=== PATIENT | female | born 1990 | race Caucasian/White ===

== ENCOUNTER 2016-08-15 14:52 | Observation (INO) | payer OTHER ==
[2016-08-15 16:53] LABS: Bacteria RARE /HPF (NEGATIVE); COMPLETE URINE MICROSCOPIC? YES; Collection Type CLEAN CATCH; Epithelial Cells MANY /HPF (FEW); Mucus MODERATE /HPF (NEGATIVE)
[2016-08-15 17:26] VITALS: BP 113/59; PULSE 69
== END 2016-08-15 17:22 | disposition home or self-care (01) ==
LOC: UNDOADMOB 14:52 → OB 14:52 → UNDODISOB 17:22
PROVIDERS: ADMIT Family Medicine; ATTEND Family Medicine
DX: Z34.02 Encounter for supervision of normal first pregnancy, second trimester (principal)
CPT/HCPCS: 80307; 81000; G0378

== ENCOUNTER 2016-12-28 17:19 | Emergency (ER) | payer OTHER ==
[2016-12-28 17:37] VITALS: BP 138/88
--- NOTE | 2016-12-28 17:48 | ERPHSYRPT ---
- History of Present Illness Time Seen by Provider: 12/28/16 17:24 Source: patient, family Exam Limitations: no limitations Patient Subjective Stated Complaint: pt here for serous drainage from c/s incision,pt states she noticed after standing up from supine position, no fever Triage Nursing Assessment: pt alert, walked in,resp easy, skin w/d,lower abd with incision that is well approximated and having serous drainage from abd.no fowel smell,no reddness noted ,pt states incision was glued Physician History: patient 6 days post C Section; today developed a little clear drainage from right side of incision; no pain; no trauma; no fever Timing/Duration: today Severity: mild Modifying Factors: Improves With: nothing Associated Symptoms: denies symptoms Allergies/Adverse Reactions: chlordiazepoxide HCl [From Librium] Allergy (Verified 12/28/16 17:38) levetiracetam [From Keppra] Allergy (Verified 12/28/16 17:38) ondansetron [From Zofran (as hydrochloride)] Allergy (Verified 12/28/16 17:38) Home Medications: Vits W-Ca,Fe,FA(<1Mg) [] 1 each PO DAILY 08/15/16 [History] Hydrocodone Bit/Acetaminophen [[place] 5-325 Tablet] 1 ea QID 12/28/16 [History] Ibuprofen 200 mg [Motrin 200 mg] 400 mg DAILY 12/28/16 [History] Hx Tetanus, Diphtheria Vaccination/Date Given: Yes Hx Influenza Vaccination/Date Given: No Hx Pneumococcal Vaccination/Date Given: No Immunizations Up to Date: Yes - Review of Systems Constitutional: No Symptoms Eyes: No Symptoms Ears, Nose, & Throat: No Symptoms Respiratory: No Cough, No Dyspnea, No Wheezing Cardiac: No Chest Pain, No Palpitations, No Syncope Abdominal/Gastrointestinal: No Abdominal Pain, No Nausea, No Vomiting, No Diarrhea Genitourinary Symptoms: No Symptoms Musculoskeletal: No Symptoms Skin: Other (incision opened), No Cellulitis, No Rash Neurological: No Symptoms Psychological: No Symptoms - Past Medical History Pertinent Past Medical History: Yes GI Medical History: Other Psycho-Social History: Depression Other Medical History: hep c - Past Surgical History Past Surgical History: Yes Other Surgical History: left hand surguery - Social History Smoking Status: Never smoker How long have you smoked: 10 years Exposure to second hand smoke: No Alcohol Use: Socially Drug Use: none Patient Lives Alone: No Significant Family History: no pertinent family hx - Female History Hx Last Menstrual Period: 03/28/16 Hx Now: No (6 days post ) - Nursing Vital Signs Nursing Vital Signs: Initial Vital Signs Temperature 98.2 F 12/28/16 17:26 Pulse Rate 97 H 12/28/16 17:26 Respiratory Rate 16 12/28/16 17:26 Blood Pressure 138/88 12/28/16 17:26 O2 Sat by Pulse Oximetry 98 12/28/16 17:26 Pain Scale Pain Intensity 5 - Physical Exam General Appearance: mild distress, alert Eye Exam: PERRL/EOMI, eyes nml inspection Ears, Nose, Throat Exam: normal ENT inspection, pharynx normal, moist mucous membranes Neck Exam: normal inspection, non-tender, supple Respiratory Exam: normal breath sounds, lungs clear, airway intact, No chest tenderness Cardiovascular Exam: regular rate/rhythm, normal heart sounds, capillary refill <2 sec, No murmur Gastrointestinal/Abdomen Exam: soft, normal bowel sounds, tenderness (slight over incision), organomegaly (slight enlargement o futerus post op / post ), other (healing incision without infection; small area 1-2 cm mid right side iopen and draining serous material; no bleeding or odor;), No rebound Pelvic Exam: deferred Rectal Exam: deferred Extremity Exam: normal inspection, normal range of motion, No jaleesa's sign, No pedal edema Neurologic Exam: alert, oriented x 3, cooperative, 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, normal mood/affect, nml cerebellar function Skin Exam: normal color, warm, dry, other (small open area of incision), No rash SpO2: 98 Oxygen Delivery: Room Air Procedures - Laceration/Wound Repair Right Lower Lateral Abdomen Wound Location: Right, abdomen Wound Length (cm): 2 (C section incison open 1-2 cm right side; approximates well; ) Wound's Depth, Shape: superficial, linear Wound Explored: clean Irrigated: No Hibiclens Prep: Yes Wound Repaired With: Steri-strips - Course Nursing assessment & vital signs reviewed: Yes Ordered Tests: Active Orders 24 hr Category Date Time Status Prepare for Sutures STAT Care 12/28/16 17:40 Ordered Re-Check Vital Signs STAT Care 12/28/16 17:40 Ordered Sutures STAT Care 12/28/16 17:41 Ordered Wound Care STAT Care 12/28/16 17:40 Ordered - Progress Progress Note: 12/28/16 17:47 discussed treatment optons and mekhi clean and steri strip and followup with lmd instrcutions given Counseled pt/family regarding: diagnosis, need for follow-up - Departure Time of Disposition: 17:48 Departure Disposition: Home Clinical Impression: Open draining abdominal incision Condition: Stable Critical Care Time: No Referrals: MIKI HOUGH, DONITA [Primary Care Provider] - Instructions: Laceration Repair Steri-Strips Additional Instructions: clean and dry Follow-up with family doctor as directed. Call for appointment. Return if any problems. If you smoke please stop. Call or follow up with your family doctor for assistance if you need it to stop. Please wear your seatbelt when driving. Have a nice day. Thank you for allowing us to participate in your care today. :o) Dr Jerry Child
[2016-12-28 18:03] VITALS: PULSE 70; O2SAT 97
== END 2016-12-28 17:57 | disposition home or self-care (01) ==
LOC: ED 17:19
DX: O90.0 Disruption of cesarean delivery wound (principal)
CPT/HCPCS: 99282

== ENCOUNTER 2018-05-02 19:44 | Observation (INO) | payer BC, OTHER ==
[2018-05-02] MEDS ORDERED: Sodium Chloride 0.9% 1000 ML 1,000 ML IV STA (19:53)
[2018-05-02] MEDS ORDERED: LIQUI-CHAR 50 GM PO ONE (20:08)
[2018-05-02 20:09] LABS: BASOPHIL % 0.3 % (0.0-0.4); Basophil (Absolute #) 0.04 (0-0.4); Eosinophil (Absolute #) 0.26 (0-0.5); Granulocyte Absolute (ANC) 8.14 (1.4-6.9); Granulocytes % 61.6 % (36.0-66.0); Hematocrit 41.8 % (35-47); Hemoglobin 13.6 gm/dl (12.0-16.0); Lymphocyte (Absolute #) 3.73 (1.0-4.6); Lymphocytes % 28.2 % (24.0-44.0); Mean Cell Volume 93.3 fl (78-100); Mean Corpuscular Hemoglobin 30.4 pg (26-32); Mean Corpuscular Hgb Concent. 32.5 g/dl (32-36); Mean Platelet Volume 10.1 fl (6-9.5); Monocyte (Absolute #) 1.05 (0.0-1.3); Monocytes % 7.9 % (0.0-12.0); Platelet Count 257 K/mm3 (150-450); Red Blood Count 4.48 M/mm3 (4.1-5.4); Red Cell Distribution Width 14.1 % (11.5-14.0); White Blood Count 13.2 K/mm3 (4.0-10.5)
[2018-05-02] MEDS ORDERED: LIQUI-CHAR 50 GM ONE (20:19)
[2018-05-02] MEDS ORDERED: Sodium Chloride 0.9% 1000 ML 1,000 ML ONE ×2 (20:19→22:49)
[2018-05-02 20:20] LABS: ALKALINE PHOSPHATASE 102 U/L (38-126); ANION GAP 22.4 MEQ/L (5-15); BLOOD UREA NITROGEN 9 mg/dL (7-17); CHLORIDE 106 mmol/L (98-107); Calcium 9.7 mg/dL (8.4-10.2); Carbon Dioxide 19 mmol/L (22-30); Creatinine 1 1.03 mg/dL (0.52-1.04); ETHYL ALCOHOL 187 mg/dL (0-10); Glucose 76 mg/dL (74-106); Potassium 3.5 mmol/L (3.5-5.1); SGOT/AST 18 U/L (14-36); SGPT/ALT 20 U/L (0-35); SODIUM 144 mmol/L (137-145)
[2018-05-02 20:24] LABS: A-aADO2 16; ABG HEMOGLOBIN 13.8; ABG POTASSIUM 3.7 (3.5-5.1); ABG SITE RIGHT RADIAL; ALLEN TEST OK? YES; ARTERIAL BLD GAS O2 SATURATION 99.2 % (95-100); ARTERIAL BLOOD GAS BASE EXCESS -5.5 (-2.0-2.0); ARTERIAL BLOOD GAS FIO2 21 %; ARTERIAL BLOOD GAS PCO2 30 mmHg (35-45); ARTERIAL BLOOD GAS PO2 96 mmHg (75-100); ARTERIAL BLOOD GAS pH 7.39 (7.35-7.45); CARBOXYHEMOGLOBIN 3.6 % THgb (0.0-6.9); HCO3- 18.2 (22-28); HGB O2 SAT 94.6 g/dF (94-100); Lactic Acid 4.9 (0.4-2.0); paO2 pAO1 0.86
[2018-05-02 20:31] LABS: ACETAMINOPHEN < 10 ug/ml (10-30); SALICYLATE < 1.0 mg/dL (2-20)
[2018-05-02 21:23] LABS: Appearance CLEAR (CLEAR); Bilirubin NEGATIVE (NEGATIVE); Blood MODERATE Ery/ul (0-5); Epithelial Cells RARE /HPF (FEW); Glucose NEGATIVE (NEGATIVE); Ketones NEGATIVE (NEGATIVE); Leukocyte Esterase NEGATIVE (NEGATIVE); Nitrite NEGATIVE (NEGATIVE); Protein,Urine Dip NEGATIVE (Negative); Specific Gravity 1.003 (1.005-1.025); Urobilinogen NEGATIVE mg/dL (0-1); WBC 0-2 /HPF (0-5)
[2018-05-02 21:24] LABS: Bacteria NONE SEEN /HPF (NEGATIVE); RBC NONE SEEN /HPF (0-2)
[2018-05-02 21:30] LABS: Barbiturate,Urine NEGATIVE (NEGATIVE); Benzodiazepine,Urine NEGATIVE (NEGATIVE); Cocaine,Urine NEGATIVE (NEGATIVE); Methadone,Urine NEGATIVE (NEGATIVE); Opiate,Urine NEGATIVE (NEGATIVE); PCP,Urine NEGATIVE (NEGATIVE); THC,Urine NEGATIVE (NEGATIVE)
[2018-05-02] MEDS ORDERED: Klor Con 10 MEQ PO ONE ×2 (21:38→21:45)
[2018-05-02] MEDS ORDERED: Sodium Bicarbonate 50 MEQ/50 ML VIAL ONE (21:45)
[2018-05-02] MEDS ORDERED: Dextrose 5%/Water IV Soln. 1000 ML 1,000 ML IV ONE (21:46)
[2018-05-02 21:55] LABS: Amphetamine,Urine POSITIVE (NEGATIVE)
[2018-05-02] MEDS: Sodium Bicarbonate 50 MEQ/50 ML VIAL*** 150 MEQ in Dextrose 5%/Water IV Soln. 1000 ML 1... IV SCH (22:08)
[2018-05-03 01:24] LABS: BLOOD UREA NITROGEN 6 mg/dL (7-17); CHLORIDE 111 mmol/L (98-107); Calcium 8.3 mg/dL (8.4-10.2); Carbon Dioxide 24 mmol/L (22-30); Creatinine 1 0.79 mg/dL (0.52-1.04); Glucose 90 mg/dL (74-106); Potassium 3.7 mmol/L (3.5-5.1); SODIUM 143 mmol/L (137-145)
--- NOTE | 2018-05-03 02:25 | ERPHSYRPT ---
- History of Present Illness Source: patient, family Exam Limitations: clinical condition, intoxication Patient Subjective Stated Complaint: per ems and law enforcement, pt was at the bar drinking and was witnessed taking 17 klonopin 1m mg tabs, 22 prozac 40mg caps, and an unknown amt of wellbutrin xl 300mg tabs. pt states she just wants to . Triage Nursing Assessment: pt uncooperative and combative at this time. hx obtained from previous chart. pt awake, answers questions, oriented to person, place, time. pt yelling and combative at times. respirations nonlabored. skin pink warm and dry. Physician History: Pt is a 27 y/o female that presented to the ED via EMS and police, secondary to suicide attempt and OD. Pt was at a bar, said that she wants to , and while drinking alcohol swallowed all her Clonazepam tabs (17), some Prozac and Wellbutrin. The tanbark peeler called the police and EMT. Pt was brought to the ER , and she was in restrains, as she is biting, combative, and not cooperating. After a prolonged period of time, pt admitted to injecting Meth today, and taking her meds, as a suicide attempt. Timing/Duration: today Severity of Symptoms-Max: severe Severity of Symptoms-Current: mild Context related to: spouse, parent, other (drug abuse) Suicidal thoughts: attempt Associated Symptoms: angry, agitated, anxiety, hostile Allergies/Adverse Reactions: chlordiazepoxide HCl [From Librium] Allergy (Verified 12/28/16 17:38) levetiracetam [From Keppra] Allergy (Verified 12/28/16 17:38) ondansetron [From Zofran (as hydrochloride)] Allergy (Verified 12/28/16 17:38) Home Medications: Vits W-Ca,Fe,FA(<1Mg) [] 1 each PO DAILY 08/15/16 [History] Hydrocodone Bit/Acetaminophen [[place] 5-325 Tablet] 1 ea QID 12/28/16 [History] Ibuprofen 200 mg [Motrin 200 mg] 400 mg DAILY 12/28/16 [History] Hx Tetanus, Diphtheria Vaccination/Date Given: Yes Hx Influenza Vaccination/Date Given: No Hx Pneumococcal Vaccination/Date Given: No - Past Medical History Pertinent Past Medical History: Yes GI Medical History: Other Psycho-Social History: Depression Other Medical History: hep c - Past Surgical History Past Surgical History: Yes Other Surgical History: left hand surguery - Social History Smoking Status: Never smoker How long have you smoked: 10 years Exposure to second hand smoke: No Alcohol Use: Socially Drug Use: none Patient Lives Alone: No Significant Family History: no pertinent family hx - Female History Hx Last Menstrual Period: unknown Hx Now: No - Review of Systems Constitutional: Other (Pt could not give any ROS, and was combative, and hostile ) - Nursing Vital Signs Nursing Vital Signs: Initial Vital Signs O2 Sat by Pulse Oximetry 97 05/02/18 19:53 - Physical Exam General Appearance: severe distress, alert Eyes, Ears, Nose, Throat Exam: other (horizontal nystagmus) Neck Exam: normal inspection, non-tender, supple Respiratory Exam: normal breath sounds, lungs clear, No respiratory distress Cardiovascular Exam: tachycardia Gastrointestinal/Abdominal Exam: soft, No tenderness, No distention Extremities Exam: normal inspection, normal range of motion, No evidence of injury, No edema Neurological Exam: alert, oriented x 3, agitated Behavior/Eye Contact/Speech: belligerent, agitated, alert & uncooperative Thoughts/Hallucinations: no apparent hallucination SpO2 Interpretation: normal SpO2: 96 O2 Delivery: Room Air - Course Nursing assessment & vital signs reviewed: Yes EKG Interpreted by Me: Sinus Tach Ordered Tests: Active Orders 24 hr Category Date Time Status Investigator STAT Care 05/02/18 19:54 Active IV Insertion STAT Care 05/02/18 19:53 Active NPO (ED) STAT Care 05/02/18 19:53 Active Pulse Oximetry (ED) STAT Care 05/02/18 19:53 Active Re-Check Vital Signs STAT Care 05/02/18 19:53 Active ACETAMINOPHEN Stat Lab 05/02/18 20:00 Completed ARTERIAL BLOOD GASES Stat Lab 05/02/18 20:17 Completed CBC W DIFF Stat Lab 05/02/18 20:00 Completed CMP Stat Lab 05/02/18 20:00 Completed ETHYL ALCOHOL Stat Lab 05/02/18 20:00 Completed HCG,QUALITATIVE URINE Stat Lab 05/02/18 21:07 Completed Lactic Acid Stat Lab 05/02/18 20:17 Completed Lactic Acid Stat Lab 05/02/18 22:23 Completed SALICYLATE Stat Lab 05/02/18 20:00 Completed UA W/RFX UR CULTURE Stat Lab 05/02/18 21:07 Completed Urine Triage Profile Stat Lab 05/02/18 21:07 Completed Medication Summary Generic Name Dose Route Start Last Admin Trade Name Kailee PRN Reason Stop Dose Admin Sodium Bicarbonate 150 meq/ 1,150 mls @ 100 mls/hr 05/02/18 21:30 05/02/18 22 :08 Dextrose IV 06/01/18 21:29 100 ml/hr .[id number] DIANA 100 mls/hr Administration Discontinued Medications Generic Name Dose Route Start Last Admin Trade Name Kailee PRN Reason Stop Dose Admin Charcoal 50 g 05/02/18 20:08 05/02/18 20:28 Liqui-Nohemi 50 Gm PO 05/02/18 20:09 50 g STAT ONE Administration Charcoal Confirm 05/02/18 20:19 Liqui-Nohemi 50 Gm Administered 05/02/18 20:20 Dose 50 g .ROUTE .STK-MED ONE Sodium Chloride 1,000 mls @ 999 mls/hr 05/02/18 19:53 05/02/18 20:24 Sodium Chloride 0.9% 1000 Ml IV 05/02/18 20:53 999 mls/hr .[id number] STA Administration Sodium Chloride Confirm 05/02/18 20:19 Sodium Chloride 0.9% 1000 Ml Administered 05/02/18 20:20 Dose 1,000 mls @ ud .ROUTE .STK-MED ONE Dextrose Confirm 05/02/18 21:46 Dextrose 5%/Water Iv Soln. 1000 Ml Administered 05/02/18 21:47 Dose 1,000 mls @ ud IV .STK-MED ONE Sodium Chloride Confirm 05/02/18 22:49 Sodium Chloride 0.9% 1000 Ml Administered 05/02/18 22:50 Dose 1,000 mls @ ud .ROUTE .STK-MED ONE Potassium Chloride 40 meq 05/02/18 21:38 05/02/18 22:01 Klor Con 10 Meq PO 05/02/18 21:39 40 meq STAT ONE Administration Potassium Chloride Confirm 05/02/18 21:45 Klor Con 10 Meq Administered 05/02/18 21:46 Dose 40 meq PO .STK-MED ONE Sodium Bicarbonate Confirm 05/02/18 21:45 Sodium Bicarbonate 50 Meq/50 Ml Vial Administered 05/02/18 21:46 Dose 150 meq .ROUTE .STK-MED ONE Lab/Rad Data: Laboratory Result Diagrams 05/02/18 20:00 05/02/18 20:00 Laboratory Results 05/03/18 05/02/18 05/02/18 Range/Units 01:15 21:07 21:07 WBC (4.0-10.5) K/mm3 RBC (4.1-5.4) M/mm3 Hgb (12.0-16.0) gm/dl Hct (35-47) % MCV (78-100) fl MCH (26-32) pg MCHC (32-36) g/dl RDW (11.5-14.0) % Plt Count (150-450) K/mm3 MPV (6-9.5) fl Gran % (36.0-66.0) % Eos # (Auto) (0-0.5) Absolute Lymphs (auto) (1.0-4.6) Absolute Monos (auto) (0.0-1.3) Lymphocytes % (24.0-44.0) % Monocytes % (0.0-12.0) % Eosinophils % (0.00-5.0) % Basophils % (0.0-0.4) % Absolute Granulocytes (1.4-6.9) Basophils # (0-0.4) Puncture Site pCO2 (35-45) mmHg pO2 (75-100) mmHg Base Excess (-2.0-2.0) O2 Saturation (94-100) g/dF ABG pH (7.35-7.45) ABG HCO3 (22-28) ABG O2 Sat (Measured) (95-100) % Jordy Test A-a Gradient a/A Ratio Hemoglobin Carboxyhemoglobin (0.0-6.9) % THgb Methemoglobin (1.4-1.5) % Temperature C POC O2 Flow Rate % Sodium (137-145) mmol/L Potassium (3.5-5.1) mmol/L Chloride (98-107) mmol/L Carbon Dioxide (22-30) mmol/L Anion Gap (5-15) MEQ/L BUN (7-17) mg/dL Creatinine (0.52-1.04) mg/dL Estimated GFR ML/MIN Glucose (74-106) mg/dL Lactic Acid 1.8 (0.4-2.0) Calcium (8.4-10.2) mg/dL Total Bilirubin (0.2-1.3) mg/dL AST (14-36) U/L ALT (0-35) U/L Alkaline Phosphatase (38-126) U/L Serum Total Protein (6.3-8.2) g/dL Albumin (3.5-5.0) g/dL Urine Color STRAW (YELLOW) Urine Appearance CLEAR (CLEAR) Urine pH 6.0 (5-6) Ur Specific [place] 1.003 (1.005-1.025) Urine Protein NEGATIVE (Negative) Urine Ketones NEGATIVE (NEGATIVE) Urine Blood MODERATE (0-5) Mandeep/ul Urine Nitrite NEGATIVE (NEGATIVE) Urine Bilirubin NEGATIVE (NEGATIVE) Urine Urobilinogen NEGATIVE (0-1) mg/dL Ur Leukocyte Esterase NEGATIVE (NEGATIVE) Urine WBC (Auto) 0-2 (0-5) /HPF Urine RBC (Auto) NONE SEEN (0-2) /HPF U Epithel Cells (Auto) RARE (FEW) /HPF Urine Bacteria (Auto) NONE SEEN (NEGATIVE) /HPF Urine Culture Reflexed NO (NO) Urine Glucose NEGATIVE (NEGATIVE) mg/dL Urine HCG, Qual (Negative) Salicylates (2-20) mg/dL Urine Opiates Level NEGATIVE (NEGATIVE) Ur Methadone NEGATIVE (NEGATIVE) Acetaminophen (10-30) ug/ml Urine Barbiturates NEGATIVE (NEGATIVE) Ur Phencyclidine (PCP) NEGATIVE (NEGATIVE) Urine Amphetamine POSITIVE (NEGATIVE) U Benzodiazepine Level NEGATIVE (NEGATIVE) Urine Cocaine NEGATIVE (NEGATIVE) Urine Marijuana (THC) NEGATIVE (NEGATIVE) Ethyl Alcohol (0-10) mg/dL 05/02/18 05/02/18 05/02/18 Range/Units 21:07 20:17 20:00 WBC (4.0-10.5) K/mm3 RBC (4.1-5.4) M/mm3 Hgb (12.0-16.0) gm/dl Hct (35-47) % MCV (78-100) fl MCH (26-32) pg MCHC (32-36) g/dl RDW (11.5-14.0) % Plt Count (150-450) K/mm3 MPV (6-9.5) fl Gran % (36.0-66.0) % Eos # (Auto) (0-0.5) Absolute Lymphs (auto) (1.0-4.6) Absolute Monos (auto) (0.0-1.3) Lymphocytes % (24.0-44.0) % Monocytes % (0.0-12.0) % Eosinophils % (0.00-5.0) % Basophils % (0.0-0.4) % Absolute Granulocytes (1.4-6.9) Basophils # (0-0.4) Puncture Site RIGHT RADIAL pCO2 30 L (35-45) mmHg pO2 96 (75-100) mmHg Base Excess -5.5 L (-2.0-2.0) O2 Saturation 94.6 (94-100) g/dF ABG pH 7.39 (7.35-7.45) ABG HCO3 18.2 L (22-28) ABG O2 Sat (Measured) 99.2 (95-100) % Jordy Test YES A-a Gradient 16 a/A Ratio 0.86 Hemoglobin 13.8 Carboxyhemoglobin 3.6 (0.0-6.9) % THgb Methemoglobin 1.0 L (1.4-1.5) % Temperature 37.0 C POC O2 Flow Rate 21 % Sodium 144 (137-145) mmol/L Potassium 3.7 3.5 (3.5-5.1) mmol/L Chloride 106 (98-107) mmol/L Carbon Dioxide 19 L (22-30) mmol/L Anion Gap 22.4 H (5-15) MEQ/L BUN 9 (7-17) mg/dL Creatinine 1.03 (0.52-1.04) mg/dL Estimated GFR > 60.0 ML/MIN Glucose 76 (74-106) mg/dL Lactic Acid 4.9 H (0.4-2.0) Calcium 9.7 D (8.4-10.2) mg/dL Total Bilirubin 0.40 (0.2-1.3) mg/dL AST 18 (14-36) U/L ALT 20 (0-35) U/L Alkaline Phosphatase 102 (38-126) U/L Serum Total Protein 8.0 (6.3-8.2) g/dL Albumin 5.0 (3.5-5.0) g/dL Urine Color (YELLOW) Urine Appearance (CLEAR) Urine pH (5-6) Ur Specific [place] (1.005-1.025) Urine Protein (Negative) Urine Ketones (NEGATIVE) Urine Blood (0-5) Mandeep/ul Urine Nitrite (NEGATIVE) Urine Bilirubin (NEGATIVE) Urine Urobilinogen (0-1) mg/dL Ur Leukocyte Esterase (NEGATIVE) Urine WBC (Auto) (0-5) /HPF Urine RBC (Auto) (0-2) /HPF U Epithel Cells (Auto) (FEW) /HPF Urine Bacteria (Auto) (NEGATIVE) /HPF Urine Culture Reflexed (NO) Urine Glucose (NEGATIVE) mg/dL Urine HCG, Qual NEGATIVE (Negative) Salicylates < 1.0 L (2-20) mg/dL Urine Opiates Level (NEGATIVE) Ur Methadone (NEGATIVE) Acetaminophen < 10 L (10-30) ug/ml Urine Barbiturates (NEGATIVE) Ur Phencyclidine (PCP) (NEGATIVE) Urine Amphetamine (NEGATIVE) U Benzodiazepine Level (NEGATIVE) Urine Cocaine (NEGATIVE) Urine Marijuana (THC) (NEGATIVE) Ethyl Alcohol 187 H (0-10) mg/dL 05/02/18 05/02/18 Range/Units 20:00 01:10 WBC 13.2 H (4.0-10.5) K/mm3 RBC 4.48 (4.1-5.4) M/mm3 Hgb 13.6 (12.0-16.0) gm/dl Hct 41.8 (35-47) % MCV 93.3 (78-100) fl MCH 30.4 (26-32) pg MCHC 32.5 (32-36) g/dl RDW 14.1 H (11.5-14.0) % Plt Count 257 (150-450) K/mm3 MPV 10.1 H (6-9.5) fl Gran % 61.6 (36.0-66.0) % Eos # (Auto) 0.26 (0-0.5) Absolute Lymphs (auto) 3.73 (1.0-4.6) Absolute Monos (auto) 1.05 (0.0-1.3) Lymphocytes % 28.2 (24.0-44.0) % Monocytes % 7.9 (0.0-12.0) % Eosinophils % 2.0 (0.00-5.0) % Basophils % 0.3 (0.0-0.4) % Absolute Granulocytes 8.14 H (1.4-6.9) Basophils # 0.04 (0-0.4) Puncture Site pCO2 (35-45) mmHg pO2 (75-100) mmHg Base Excess (-2.0-2.0) O2 Saturation (94-100) g/dF ABG pH (7.35-7.45) ABG HCO3 (22-28) ABG O2 Sat (Measured) (95-100) % Jordy Test A-a Gradient a/A Ratio Hemoglobin Carboxyhemoglobin (0.0-6.9) % THgb Methemoglobin (1.4-1.5) % Temperature C POC O2 Flow Rate % Sodium 143 (137-145) mmol/L Potassium 3.7 (3.5-5.1) mmol/L Chloride 111 H (98-107) mmol/L Carbon Dioxide 24 (22-30) mmol/L Anion Gap 12.0 (5-15) MEQ/L BUN 6 L (7-17) mg/dL Creatinine 0.79 (0.52-1.04) mg/dL Estimated GFR > 60.0 ML/MIN Glucose 90 (74-106) mg/dL Lactic Acid (0.4-2.0) Calcium 8.3 L (8.4-10.2) mg/dL Total Bilirubin (0.2-1.3) mg/dL AST (14-36) U/L ALT (0-35) U/L Alkaline Phosphatase (38-126) U/L Serum Total Protein (6.3-8.2) g/dL Albumin (3.5-5.0) g/dL Urine Color (YELLOW) Urine Appearance (CLEAR) Urine pH (5-6) Ur Specific [place] (1.005-1.025) Urine Protein (Negative) Urine Ketones (NEGATIVE) Urine Blood (0-5) Mandeep/ul Urine Nitrite (NEGATIVE) Urine Bilirubin (NEGATIVE) Urine Urobilinogen (0-1) mg/dL Ur Leukocyte Esterase (NEGATIVE) Urine WBC (Auto) (0-5) /HPF Urine RBC (Auto) (0-2) /HPF U Epithel Cells (Auto) (FEW) /HPF Urine Bacteria (Auto) (NEGATIVE) /HPF Urine Culture Reflexed (NO) Urine Glucose (NEGATIVE) mg/dL Urine HCG, Qual (Negative) Salicylates (2-20) mg/dL Urine Opiates Level (NEGATIVE) Ur Methadone (NEGATIVE) Acetaminophen (10-30) ug/ml Urine Barbiturates (NEGATIVE) Ur Phencyclidine (PCP) (NEGATIVE) Urine Amphetamine (NEGATIVE) U Benzodiazepine Level (NEGATIVE) Urine Cocaine (NEGATIVE) Urine Marijuana (THC) (NEGATIVE) Ethyl Alcohol (0-10) mg/dL - Progress Progress: improved Progress Note: 05/03/18 02:28 Pt was placed on IVF and bicarb gtt. She did get 2 lit NS, and Bicarb is at 100ml/hr. Pt got KCl 40 meq PO. Her lactate improved to 1.8. AG is closed. Pt did have only Meth in urine. UA is clean. Carbon PO was given about 1 hr post injection. Pt is comfortable, and is sleeping. Much improved. Dr Zimmer accepted to ICU admission. Discussed with : Kylee Will see patient in: hospital (full admit) Counseled pt/family regarding: drug and/or alcohol abuse, lab results, diagnosis - Departure Time of Disposition: 02:30 Departure Disposition: In-patient Admission Clinical Impression: Overdose Condition: Stable Critical Care Time: Yes Critical Care Time(excluding separately billable procedures): 30-74 minutes Referrals: MIKI HOUGH NP [Primary Care Provider] -
[2018-05-03 06:15] LABS: BASOPHIL % 0.2 % (0.0-0.4); Basophil (Absolute #) 0.02 (0-0.4); Eosinophil % 2.9 % (0.00-5.0); Eosinophil (Absolute #) 0.25 (0-0.5); Hematocrit 36.3 % (35-47); Hemoglobin 11.6 gm/dl (12.0-16.0); Lymphocyte (Absolute #) 3.45 (1.0-4.6); Lymphocytes % 39.4 % (24.0-44.0); Mean Platelet Volume 10.2 fl (6-9.5); Monocyte (Absolute #) 0.83 (0.0-1.3); Monocytes % 9.5 % (0.0-12.0); Platelet Count 195 K/mm3 (150-450); Red Blood Count 3.86 M/mm3 (4.1-5.4); White Blood Count 8.8 K/mm3 (4.0-10.5)
[2018-05-03 06:38] LABS: ANION GAP 13.1 MEQ/L (5-15); BLOOD UREA NITROGEN 7 mg/dL (7-17); CHLORIDE 108 mmol/L (98-107); Calcium 8.4 mg/dL (8.4-10.2); Carbon Dioxide 25 mmol/L (22-30); Glucose 83 mg/dL (74-106); Potassium 3.7 mmol/L (3.5-5.1); SODIUM 142 mmol/L (137-145)
--- NOTE | 2018-05-03 09:42 | PCM.HP ---
History of Present Illness - Chief Complaint Chief Complaint: suicide attempt/OD History of Present Illness: is a 27 y/o female that presented to the ED via EMS and police, secondary to suicide attempt and OD. Pt was at a bar, said that she wants to , and while drinking alcohol swallowed all her Clonazepam tabs (17), some Prozac and Wellbutrin. The barge captain called the police and EMT. Pt was brought to the ER, and she was in restrains, as she is biting, combative, and not cooperating. After a prolonged period of time, pt admitted to injecting Meth today, and taking her meds, as a suicide attempt. - Review of Systems Constitutional: No Fever, No Chills Eyes: No Symptoms Ears, Nose, & Throat: No Symptoms Respiratory: No Cough, No Short Of Breath Cardiac: No Chest Pain, No Edema, No Syncope Abdominal/Gastrointestinal: No Abdominal Pain, No Nausea, No Vomiting, No Diarrhea Genitourinary Symptoms: No Dysuria Musculoskeletal: No Back Pain, No Neck Pain Skin: No Rash Neurological: No Dizziness, No Focal Weakness, No Sensory Changes Psychological: No Symptoms Endocrine: No Symptoms Hematologic/Lymphatic: No Symptoms Immunological/Allergic: No Symptoms Medications & Allergies Home Medications: Home Medication List Aripiprazole [Abilify] 5 mg PO BID 05/03/18 [History Confirmed 05/03/18] Bupropion HCl Xl 150 mg [Wellbutrin XL 150 MG] 300 mg PO DAILY 05/03/18 [ History Confirmed 05/03/18] Clonazepam 1 mg PO BID 05/03/18 [History Confirmed 05/03/18] Fluoxetine HCl 20 mg [Prozac 20 MG] 40 mg PO DAILY 05/03/18 [History Confirmed 05/03/18] Venlafaxine HCl [Effexor] 100 mg PO DAILY 05/03/18 [History Confirmed 05/03/18] Allergies/Adverse Reactions: Allergies Allergy/AdvReac Type Severity Reaction Status Date / Time chlordiazepoxide HCl Allergy Verified 05/03/18 03:59 [From Librium] levetiracetam [From Keppra] Allergy Verified 05/03/18 03:59 - Past Medical History Past Medical History: Yes Neurological History: No Pertinent History ENT History: No Pertinent History Cardiac History: No Pertinent History Respiratory History: No Pertinent History Endocrine Medical History: No Pertinent History Musculoskelatal History: No Pertinent History GI Medical History: No Pertinent History History: No Pertinent History Pyscho-Social History: Anxiety, Depression Reproductive Disorders: No Pertinent History Comment: Hep C positive - Female History Hx Last Menstrual Period: unknown Are you now?: No - Past Surgical History Past Surgical History: No Neuro Surgical History: No Pertinent History Cardiac History: No Pertinent History Respiratory Surgery: No Pertinent History GI Surgical History: No Pertinent History Genitourinary Surgical Hx: No Pertinent History Musculskeletal Surgical Hx: No Pertinent History Female Surgical History: No Pertinent History Other Surgical History: Patient denies any past surgeries - Social History Smoking Status: Current some day smoker How long have you smoked: 10 years Exposure to second hand smoke: No Alcohol: Occasionally Drug Use: methamphetamines Significant Family History: no pertinent family hx - Physical Exam Vital Signs: Vital Signs - 24 hr Temp Pulse Resp BP Pulse Ox 05/03/18 08:00 98.8 F 83 18 103/65 97 05/03/18 04:12 98.5 F 88 14 103/65 95 05/03/18 04:00 88 05/03/18 02:32 96 05/03/18 02:30 100 H 18 108/72 95 05/03/18 00:44 98 H 14 106/64 96 05/03/18 00:30 95 H 18 106/64 97 05/02/18 22:50 87 17 110/74 98 05/02/18 22:40 108 H 18 110/74 05/02/18 21:50 110 H 22 110/74 98 05/02/18 21:01 117 H 20 120/71 05/02/18 19:59 132 H 20 153/86 97 05/02/18 19:53 97 General Appearance: no apparent distress, alert Neurologic Exam: alert, oriented x 3, cooperative, normal mood/affect, nml cerebellar function, nml station & gait, sensation nml, No motor deficits Eye Exam: PERRL/EOMI, eyes nml inspection Ears, Nose, Throat Exam: normal ENT inspection, TMs normal, pharynx normal, moist mucous membranes Neck Exam: normal inspection, non-tender, supple, full range of motion Respiratory Exam: normal breath sounds, lungs clear, No respiratory distress Cardiovascular Exam: regular rate/rhythm, normal heart sounds, normal peripheral pulses Gastrointestinal/Abdomen Exam: soft, normal bowel sounds, No tenderness, No mass Back Exam: normal inspection, normal range of motion, No CVA tenderness, No vertebral tenderness Extremity Exam: normal inspection, normal range of motion, pelvis stable Skin Exam: normal color, warm, dry, No rash Lymphatic Exam: No adenopathy Results - Labs Lab/Micro Results: Lab Results-Last 24 Hours 05/02/18 05/02/18 05/02/18 Range/Units 01:10 20:00 20:00 WBC 13.2 H (4.0-10.5) K/mm3 RBC 4.48 (4.1-5.4) M/mm3 Hgb 13.6 (12.0-16.0) gm/dl Hct 41.8 (35-47) % MCV 93.3 (78-100) fl MCH 30.4 (26-32) pg MCHC 32.5 (32-36) g/dl RDW 14.1 H (11.5-14.0) % Plt Count 257 (150-450) K/mm3 MPV 10.1 H (6-9.5) fl Gran % 61.6 (36.0-66.0) % Eos # (Auto) 0.26 (0-0.5) Absolute Lymphs (auto) 3.73 (1.0-4.6) Absolute Monos (auto) 1.05 (0.0-1.3) Lymphocytes % 28.2 (24.0-44.0) % Monocytes % 7.9 (0.0-12.0) % Eosinophils % 2.0 (0.00-5.0) % Basophils % 0.3 (0.0-0.4) % Absolute Granulocytes 8.14 H (1.4-6.9) Basophils # 0.04 (0-0.4) Puncture Site pCO2 (35-45) mmHg pO2 (75-100) mmHg Base Excess (-2.0-2.0) O2 Saturation (94-100) g/dF ABG pH (7.35-7.45) ABG HCO3 (22-28) ABG O2 Sat (Measured) (95-100) % Jordy Test A-a Gradient a/A Ratio Hemoglobin Carboxyhemoglobin (0.0-6.9) % THgb Methemoglobin (1.4-1.5) % Temperature C POC O2 Flow Rate % Sodium 143 144 (137-145) mmol/L Potassium 3.7 3.5 (3.5-5.1) mmol/L Chloride 111 H 106 (98-107) mmol/L Carbon Dioxide 24 19 L (22-30) mmol/L Anion Gap 12.0 22.4 H (5-15) MEQ/L BUN 6 L 9 (7-17) mg/dL Creatinine 0.79 1.03 (0.52-1.04) mg/dL Estimated GFR > 60.0 > 60.0 ML/MIN Glucose 90 76 (74-106) mg/dL Lactic Acid (0.4-2.0) Calcium 8.3 L 9.7 D (8.4-10.2) mg/dL Total Bilirubin 0.40 (0.2-1.3) mg/dL AST 18 (14-36) U/L ALT 20 (0-35) U/L Alkaline Phosphatase 102 (38-126) U/L Serum Total Protein 8.0 (6.3-8.2) g/dL Albumin 5.0 (3.5-5.0) g/dL Urine Color (YELLOW) Urine Appearance (CLEAR) Urine pH (5-6) Ur Specific [place] (1.005-1.025) Urine Protein (Negative) Urine Ketones (NEGATIVE) Urine Blood (0-5) Mandeep/ul Urine Nitrite (NEGATIVE) Urine Bilirubin (NEGATIVE) Urine Urobilinogen (0-1) mg/dL Ur Leukocyte Esterase (NEGATIVE) Urine WBC (Auto) (0-5) /HPF Urine RBC (Auto) (0-2) /HPF U Epithel Cells (Auto) (FEW) /HPF Urine Bacteria (Auto) (NEGATIVE) /HPF Urine Culture Reflexed (NO) Urine Glucose (NEGATIVE) mg/dL Urine HCG, Qual (Negative) Salicylates < 1.0 L (2-20) mg/dL Urine Opiates Level (NEGATIVE) Ur Methadone (NEGATIVE) Acetaminophen < 10 L (10-30) ug/ml Urine Barbiturates (NEGATIVE) Ur Phencyclidine (PCP) (NEGATIVE) Urine Amphetamine (NEGATIVE) U Benzodiazepine Level (NEGATIVE) Urine Cocaine (NEGATIVE) Urine Marijuana (THC) (NEGATIVE) Ethyl Alcohol 187 H (0-10) mg/dL 01/29/19 01/29/19 01/29/19 Range/Units 20:17 21:07 21:07 WBC (4.0-10.5) K/mm3 RBC (4.1-5.4) M/mm3 Hgb (12.0-16.0) gm/dl Hct (35-47) % MCV (78-100) fl MCH (26-32) pg MCHC (32-36) g/dl RDW (11.5-14.0) % Plt Count (150-450) K/mm3 MPV (6-9.5) fl Gran % (36.0-66.0) % Eos # (Auto) (0-0.5) Absolute Lymphs (auto) (1.0-4.6) Absolute Monos (auto) (0.0-1.3) Lymphocytes % (24.0-44.0) % Monocytes % (0.0-12.0) % Eosinophils % (0.00-5.0) % Basophils % (0.0-0.4) % Absolute Granulocytes (1.4-6.9) Basophils # (0-0.4) Puncture Site RIGHT RADIAL pCO2 30 L (35-45) mmHg pO2 96 (75-100) mmHg Base Excess -5.5 L (-2.0-2.0) O2 Saturation 94.6 (94-100) g/dF ABG pH 7.39 (7.35-7.45) ABG HCO3 18.2 L (22-28) ABG O2 Sat (Measured) 99.2 (95-100) % Jordy Test YES A-a Gradient 16 a/A Ratio 0.86 Hemoglobin 13.8 Carboxyhemoglobin 3.6 (0.0-6.9) % THgb Methemoglobin 1.0 L (1.4-1.5) % Temperature 37.0 C POC O2 Flow Rate 21 % Sodium (137-145) mmol/L Potassium 3.7 (3.5-5.1) mmol/L Chloride (98-107) mmol/L Carbon Dioxide (22-30) mmol/L Anion Gap (5-15) MEQ/L BUN (7-17) mg/dL Creatinine (0.52-1.04) mg/dL Estimated GFR ML/MIN Glucose (74-106) mg/dL Lactic Acid 4.9 H (0.4-2.0) Calcium (8.4-10.2) mg/dL Total Bilirubin (0.2-1.3) mg/dL AST (14-36) U/L ALT (0-35) U/L Alkaline Phosphatase (38-126) U/L Serum Total Protein (6.3-8.2) g/dL Albumin (3.5-5.0) g/dL Urine Color STRAW (YELLOW) Urine Appearance CLEAR (CLEAR) Urine pH 6.0 (5-6) Ur Specific [place] 1.003 (1.005-1.025) Urine Protein NEGATIVE (Negative) Urine Ketones NEGATIVE (NEGATIVE) Urine Blood MODERATE (0-5) Mandeep/ul Urine Nitrite NEGATIVE (NEGATIVE) Urine Bilirubin NEGATIVE (NEGATIVE) Urine Urobilinogen NEGATIVE (0-1) mg/dL Ur Leukocyte Esterase NEGATIVE (NEGATIVE) Urine WBC (Auto) 0-2 (0-5) /HPF Urine RBC (Auto) NONE SEEN (0-2) /HPF U Epithel Cells (Auto) RARE (FEW) /HPF Urine Bacteria (Auto) NONE SEEN (NEGATIVE) /HPF Urine Culture Reflexed NO (NO) Urine Glucose NEGATIVE (NEGATIVE) mg/dL Urine HCG, Qual NEGATIVE (Negative) Salicylates (2-20) mg/dL Urine Opiates Level (NEGATIVE) Ur Methadone (NEGATIVE) Acetaminophen (10-30) ug/ml Urine Barbiturates (NEGATIVE) Ur Phencyclidine (PCP) (NEGATIVE) Urine Amphetamine (NEGATIVE) U Benzodiazepine Level (NEGATIVE) Urine Cocaine (NEGATIVE) Urine Marijuana (THC) (NEGATIVE) Ethyl Alcohol (0-10) mg/dL 05/02/18 05/03/18 05/03/18 Range/Units 21:07 01:15 05:56 WBC (4.0-10.5) K/mm3 RBC (4.1-5.4) M/mm3 Hgb (12.0-16.0) gm/dl Hct (35-47) % MCV (78-100) fl MCH (26-32) pg MCHC (32-36) g/dl RDW (11.5-14.0) % Plt Count (150-450) K/mm3 MPV (6-9.5) fl Gran % (36.0-66.0) % Eos # (Auto) (0-0.5) Absolute Lymphs (auto) (1.0-4.6) Absolute Monos (auto) (0.0-1.3) Lymphocytes % (24.0-44.0) % Monocytes % (0.0-12.0) % Eosinophils % (0.00-5.0) % Basophils % (0.0-0.4) % Absolute Granulocytes (1.4-6.9) Basophils # (0-0.4) Puncture Site pCO2 (35-45) mmHg pO2 (75-100) mmHg Base Excess (-2.0-2.0) O2 Saturation (94-100) g/dF ABG pH (7.35-7.45) ABG HCO3 (22-28) ABG O2 Sat (Measured) (95-100) % Jordy Test A-a Gradient a/A Ratio Hemoglobin Carboxyhemoglobin (0.0-6.9) % THgb Methemoglobin (1.4-1.5) % Temperature C POC O2 Flow Rate % Sodium (137-145) mmol/L Potassium (3.5-5.1) mmol/L Chloride (98-107) mmol/L Carbon Dioxide (22-30) mmol/L Anion Gap (5-15) MEQ/L BUN (7-17) mg/dL Creatinine (0.52-1.04) mg/dL Estimated GFR ML/MIN Glucose (74-106) mg/dL Lactic Acid 1.8 1.4 (0.4-2.0) Calcium (8.4-10.2) mg/dL Total Bilirubin (0.2-1.3) mg/dL AST (14-36) U/L ALT (0-35) U/L Alkaline Phosphatase (38-126) U/L Serum Total Protein (6.3-8.2) g/dL Albumin (3.5-5.0) g/dL Urine Color (YELLOW) Urine Appearance (CLEAR) Urine pH (5-6) Ur Specific [place] (1.005-1.025) Urine Protein (Negative) Urine Ketones (NEGATIVE) Urine Blood (0-5) Mandeep/ul Urine Nitrite (NEGATIVE) Urine Bilirubin (NEGATIVE) Urine Urobilinogen (0-1) mg/dL Ur Leukocyte Esterase (NEGATIVE) Urine WBC (Auto) (0-5) /HPF Urine RBC (Auto) (0-2) /HPF U Epithel Cells (Auto) (FEW) /HPF Urine Bacteria (Auto) (NEGATIVE) /HPF Urine Culture Reflexed (NO) Urine Glucose (NEGATIVE) mg/dL Urine HCG, Qual (Negative) Salicylates (2-20) mg/dL Urine Opiates Level NEGATIVE (NEGATIVE) Ur Methadone NEGATIVE (NEGATIVE) Acetaminophen (10-30) ug/ml Urine Barbiturates NEGATIVE (NEGATIVE) Ur Phencyclidine (PCP) NEGATIVE (NEGATIVE) Urine Amphetamine POSITIVE (NEGATIVE) U Benzodiazepine Level NEGATIVE (NEGATIVE) Urine Cocaine NEGATIVE (NEGATIVE) Urine Marijuana (THC) NEGATIVE (NEGATIVE) Ethyl Alcohol (0-10) mg/dL 05/03/18 05/03/18 Range/Units 06:05 06:05 WBC 8.8 (4.0-10.5) K/mm3 RBC 3.86 L (4.1-5.4) M/mm3 Hgb 11.6 L (12.0-16.0) gm/dl Hct 36.3 (35-47) % MCV 94.0 (78-100) fl MCH 30.0 (26-32) pg MCHC 32.0 (32-36) g/dl RDW 14.0 (11.5-14.0) % Plt Count 195 (150-450) K/mm3 MPV 10.2 H (6-9.5) fl Gran % 48.0 (36.0-66.0) % Eos # (Auto) 0.25 (0-0.5) Absolute Lymphs (auto) 3.45 (1.0-4.6) Absolute Monos (auto) 0.83 (0.0-1.3) Lymphocytes % 39.4 (24.0-44.0) % Monocytes % 9.5 (0.0-12.0) % Eosinophils % 2.9 (0.00-5.0) % Basophils % 0.2 (0.0-0.4) % Absolute Granulocytes 4.20 (1.4-6.9) Basophils # 0.02 (0-0.4) Puncture Site pCO2 (35-45) mmHg pO2 (75-100) mmHg Base Excess (-2.0-2.0) O2 Saturation (94-100) g/dF ABG pH (7.35-7.45) ABG HCO3 (22-28) ABG O2 Sat (Measured) (95-100) % Jordy Test A-a Gradient a/A Ratio Hemoglobin Carboxyhemoglobin (0.0-6.9) % THgb Methemoglobin (1.4-1.5) % Temperature C POC O2 Flow Rate % Sodium 142 (137-145) mmol/L Potassium 3.7 (3.5-5.1) mmol/L Chloride 108 H (98-107) mmol/L Carbon Dioxide 25 (22-30) mmol/L Anion Gap 13.1 (5-15) MEQ/L BUN 7 (7-17) mg/dL Creatinine 0.80 (0.52-1.04) mg/dL Estimated GFR > 60.0 ML/MIN Glucose 83 (74-106) mg/dL Lactic Acid (0.4-2.0) Calcium 8.4 (8.4-10.2) mg/dL Total Bilirubin (0.2-1.3) mg/dL AST (14-36) U/L ALT (0-35) U/L Alkaline Phosphatase (38-126) U/L Serum Total Protein (6.3-8.2) g/dL Albumin (3.5-5.0) g/dL Urine Color (YELLOW) Urine Appearance (CLEAR) Urine pH (5-6) Ur Specific [place] (1.005-1.025) Urine Protein (Negative) Urine Ketones (NEGATIVE) Urine Blood (0-5) Mandeep/ul Urine Nitrite (NEGATIVE) Urine Bilirubin (NEGATIVE) Urine Urobilinogen (0-1) mg/dL Ur Leukocyte Esterase (NEGATIVE) Urine WBC (Auto) (0-5) /HPF Urine RBC (Auto) (0-2) /HPF U Epithel Cells (Auto) (FEW) /HPF Urine Bacteria (Auto) (NEGATIVE) /HPF Urine Culture Reflexed (NO) Urine Glucose (NEGATIVE) mg/dL Urine HCG, Qual (Negative) Salicylates (2-20) mg/dL Urine Opiates Level (NEGATIVE) Ur Methadone (NEGATIVE) Acetaminophen (10-30) ug/ml Urine Barbiturates (NEGATIVE) Ur Phencyclidine (PCP) (NEGATIVE) Urine Amphetamine (NEGATIVE) U Benzodiazepine Level (NEGATIVE) Urine Cocaine (NEGATIVE) Urine Marijuana (THC) (NEGATIVE) Ethyl Alcohol (0-10) mg/dL Assessment/Plan (1) Overdose Current Visit: Yes Status: Acute Qualifiers: Encounter type: initial encounter Assessment & Plan: Last Vital Signs Temp 98.8 F 05/03/18 08:00 Pulse 83 05/03/18 08:00 Resp 18 05/03/18 08:00 BP 103/65 05/03/18 08:00 Pulse Ox 97 05/03/18 08:00 Allergies chlordiazepoxide HCl [From Librium] Allergy (Verified 05/03/18 03:59) levetiracetam [From Keppra] Allergy (Verified 05/03/18 03:59) Active Medications Sodium Bicarbonate 150 meq/ (Dextrose) 1,150 mls @ 100 mls/hr IV .[id number] DIANA Stop: 06/01/18 21:29 Last Admin: 05/02/18 22:08 Dose: 100 ml/hr, 100 mls/hr Intake & Output 05/02/18 05/03/18 11:59 11:59 Intake Total 300 Balance 300 Weight 88.7 kg Lab Tests 05/02/18 05/02/18 05/02/18 01:10 20:00 20:00 WBC 13.2 H RBC 4.48 Hgb 13.6 Hct 41.8 MCV 93.3 MCH 30.4 MCHC 32.5 RDW 14.1 H Plt Count 257 MPV 10.1 H Gran % 61.6 Eos # (Auto) 0.26 Absolute Lymphs (auto) 3.73 Absolute Monos (auto) 1.05 Lymphocytes % 28.2 Monocytes % 7.9 Eosinophils % 2.0 Basophils % 0.3 Absolute Granulocytes 8.14 H Basophils # 0.04 Puncture Site pCO2 pO2 Base Excess O2 Saturation ABG pH ABG HCO3 ABG O2 Sat (Measured) Jordy Test A-a Gradient a/A Ratio Hemoglobin Carboxyhemoglobin Methemoglobin Temperature POC O2 Flow Rate Sodium 143 144 Potassium 3.7 3.5 Chloride 111 H 106 Carbon Dioxide 24 19 L Anion Gap 12.0 22.4 H BUN 6 L 9 Creatinine 0.79 1.03 Estimated GFR > 60.0 > 60.0 Glucose 90 76 Lactic Acid Calcium 8.3 L 9.7 D Total Bilirubin 0.40 AST 18 ALT 20 Alkaline Phosphatase 102 Serum Total Protein 8.0 Albumin 5.0 Urine Color Urine Appearance Urine pH Ur Specific [place] Urine Protein Urine Ketones Urine Blood Urine Nitrite Urine Bilirubin Urine Urobilinogen Ur Leukocyte Esterase Urine WBC (Auto) Urine RBC (Auto) U Epithel Cells (Auto) Urine Bacteria (Auto) Urine Culture Reflexed Urine Glucose Urine HCG, Qual Salicylates < 1.0 L Urine Opiates Level Ur Methadone Acetaminophen < 10 L Urine Barbiturates Ur Phencyclidine (PCP) Urine Amphetamine U Benzodiazepine Level Urine Cocaine Urine Marijuana (THC) Ethyl Alcohol 187 H 05/02/18 05/02/18 05/02/18 20:17 21:07 21:07 WBC RBC Hgb Hct MCV MCH MCHC RDW Plt Count MPV Gran % Eos # (Auto) Absolute Lymphs (auto) Absolute Monos (auto) Lymphocytes % Monocytes % Eosinophils % Basophils % Absolute Granulocytes Basophils # Puncture Site RIGHT RADIAL pCO2 30 L pO2 96 Base Excess -5.5 L O2 Saturation 94.6 ABG pH 7.39 ABG HCO3 18.2 L ABG O2 Sat (Measured) 99.2 Jordy Test YES A-a Gradient 16 a/A Ratio 0.86 Hemoglobin 13.8 Carboxyhemoglobin 3.6 Methemoglobin 1.0 L Temperature 37.0 POC O2 Flow Rate 21 Sodium Potassium 3.7 Chloride Carbon Dioxide Anion Gap BUN Creatinine Estimated GFR Glucose Lactic Acid 4.9 H Calcium Total Bilirubin AST ALT Alkaline Phosphatase Serum Total Protein Albumin Urine Color STRAW Urine Appearance CLEAR Urine pH 6.0 Ur Specific [place] 1.003 Urine Protein NEGATIVE Urine Ketones NEGATIVE Urine Blood MODERATE Urine Nitrite NEGATIVE Urine Bilirubin NEGATIVE Urine Urobilinogen NEGATIVE Ur Leukocyte Esterase NEGATIVE Urine WBC (Auto) 0-2 Urine RBC (Auto) NONE SEEN U Epithel Cells (Auto) RARE Urine Bacteria (Auto) NONE SEEN Urine Culture Reflexed NO Urine Glucose NEGATIVE Urine HCG, Qual NEGATIVE Salicylates Urine Opiates Level Ur Methadone Acetaminophen Urine Barbiturates Ur Phencyclidine (PCP) Urine Amphetamine U Benzodiazepine Level Urine Cocaine Urine Marijuana (THC) Ethyl Alcohol 05/02/18 05/03/18 05/03/18 21:07 01:15 05:56 WBC RBC Hgb Hct MCV MCH MCHC RDW Plt Count MPV Gran % Eos # (Auto) Absolute Lymphs (auto) Absolute Monos (auto) Lymphocytes % Monocytes % Eosinophils % Basophils % Absolute Granulocytes Basophils # Puncture Site pCO2 pO2 Base Excess O2 Saturation ABG pH ABG HCO3 ABG O2 Sat (Measured) Jordy Test A-a Gradient a/A Ratio Hemoglobin Carboxyhemoglobin Methemoglobin Temperature POC O2 Flow Rate Sodium Potassium Chloride Carbon Dioxide Anion Gap BUN Creatinine Estimated GFR Glucose Lactic Acid 1.8 1.4 Calcium Total Bilirubin AST ALT Alkaline Phosphatase Serum Total Protein Albumin Urine Color Urine Appearance Urine pH Ur Specific [place] Urine Protein Urine Ketones Urine Blood Urine Nitrite Urine Bilirubin Urine Urobilinogen Ur Leukocyte Esterase Urine WBC (Auto) Urine RBC (Auto) U Epithel Cells (Auto) Urine Bacteria (Auto) Urine Culture Reflexed Urine Glucose Urine HCG, Qual Salicylates Urine Opiates Level NEGATIVE Ur Methadone NEGATIVE Acetaminophen Urine Barbiturates NEGATIVE Ur Phencyclidine (PCP) NEGATIVE Urine Amphetamine POSITIVE U Benzodiazepine Level NEGATIVE Urine Cocaine NEGATIVE Urine Marijuana (THC) NEGATIVE Ethyl Alcohol 05/03/18 05/03/18 06:05 06:05 WBC 8.8 RBC 3.86 L Hgb 11.6 L Hct 36.3 MCV 94.0 MCH 30.0 MCHC 32.0 RDW 14.0 Plt Count 195 MPV 10.2 H Gran % 48.0 Eos # (Auto) 0.25 Absolute Lymphs (auto) 3.45 Absolute Monos (auto) 0.83 Lymphocytes % 39.4 Monocytes % 9.5 Eosinophils % 2.9 Basophils % 0.2 Absolute Granulocytes 4.20 Basophils # 0.02 Puncture Site pCO2 pO2 Base Excess O2 Saturation ABG pH ABG HCO3 ABG O2 Sat (Measured) Jordy Test A-a Gradient a/A Ratio Hemoglobin Carboxyhemoglobin Methemoglobin Temperature POC O2 Flow Rate Sodium 142 Potassium 3.7 Chloride 108 H Carbon Dioxide 25 Anion Gap 13.1 BUN 7 Creatinine 0.80 Estimated GFR > 60.0 Glucose 83 Lactic Acid Calcium 8.4 Total Bilirubin AST ALT Alkaline Phosphatase Serum Total Protein Albumin Urine Color Urine Appearance Urine pH Ur Specific [place] Urine Protein Urine Ketones Urine Blood Urine Nitrite Urine Bilirubin Urine Urobilinogen Ur Leukocyte Esterase Urine WBC (Auto) Urine RBC (Auto) U Epithel Cells (Auto) Urine Bacteria (Auto) Urine Culture Reflexed Urine Glucose Urine HCG, Qual Salicylates Urine Opiates Level Ur Methadone Acetaminophen Urine Barbiturates Ur Phencyclidine (PCP) Urine Amphetamine U Benzodiazepine Level Urine Cocaine Urine Marijuana (THC) Ethyl Alcohol Code(s): T50.901A - POISONING BY UNSP DRUG/MEDS/BIOL SUBST, ACCIDENTAL, INIT
[2018-05-03] MEDS: Sodium Bicarbonate 50 MEQ/50 ML VIAL*** 150 MEQ in Dextrose 5%/Water IV Soln. 1000 ML 1... IV SCH (11:29)
[2018-05-03 12:10] VITALS: O2SAT 98
[2018-05-03] MEDS ORDERED: Sodium Chloride 0.9% 10 ML FLUSH Syringe IV PRN (15:00)
[2018-05-03 17:12] VITALS: BP 109/64; PULSE 82
[2018-05-03] MEDS ORDERED: Sodium Chloride 0.9% 10 ML FLUSH Syringe IV SCH (22:00)
== END 2018-05-03 19:20 ==
LOC: ED 19:44 → ICU 05-03 03:35 → OBSVTOIN 05-03 03:35 → INTOOBSV 05-03 03:35
PROVIDERS: ADMIT General Practice; ATTEND General Practice
DX: T42.4X2A Poisoning by benzodiazepines, intentional self-harm, initial encounter (principal)
CPT/HCPCS: 36000; 36415; 36600; 80048; 80053; 80307; 81001; 82375; 82803; 83605; 83930; 83935; 84703; 85025; 90791; 93041; 99285; G0481; Q3014; 96360; 96361; 96365; 99291; A9270-GY; G0480

== ENCOUNTER 2018-08-18 16:14 | Emergency (ER) | payer BC, OTHER ==
[2018-08-18] MEDS ORDERED: Sodium Chloride 0.9% 1000 ML 1,000 ML IV STA (16:33)
[2018-08-18] MEDS ORDERED: ANTIVERT 25 MG PO ONE (16:33)
--- NOTE | 2018-08-18 16:37 | ERPHSYRPT ---
- History of Present Illness Time Seen by Provider: 08/18/18 16:35 Source: patient Physician History: mild dizzy and vertigo today, feels like the room is spinning, no injury, no emesis, no fever, no hearing loss, speech fluent Allergies/Adverse Reactions: chlordiazepoxide HCl [From Librium] Allergy (Verified 05/03/18 03:59) levetiracetam [From Keppra] Allergy (Verified 05/03/18 03:59) Home Medications: Aripiprazole [Abilify] 5 mg PO BID 05/03/18 [History] Bupropion HCl Xl 150 mg [Wellbutrin XL 150 MG] 300 mg PO DAILY 05/03/18 [ History] Clonazepam 1 mg PO BID 05/03/18 [History] Fluoxetine HCl 20 mg [Prozac 20 MG] 40 mg PO DAILY 05/03/18 [History] Venlafaxine HCl [Effexor] 100 mg PO DAILY 05/03/18 [History] Hx Tetanus, Diphtheria Vaccination/Date Given: Yes Hx Influenza Vaccination/Date Given: No Hx Pneumococcal Vaccination/Date Given: No - Review of Systems Constitutional: No Fever Eyes: No Vision Changes Ears, Nose, & Throat: No Nose Congestion Respiratory: No Dyspnea Cardiac: No Chest Pain Abdominal/Gastrointestinal: No Abdominal Pain, No Vomiting Genitourinary Symptoms: No Dysuria Musculoskeletal: No Back Pain Skin: No Rash Neurological: Dizziness, No Focal Weakness, No Headache, No Speech Changes - Past Medical History Pertinent Past Medical History: Yes Neurological History: No Pertinent History ENT History: No Pertinent History Cardiac History: No Pertinent History Respiratory History: No Pertinent History Endocrine Medical History: No Pertinent History Musculoskeletal History: No Pertinent History GI Medical History: No Pertinent History History: No Pertinent History Psycho-Social History: Anxiety, Depression Female Reproductive Disorders: No Pertinent History Other Medical History: Hep C positive - Past Surgical History Past Surgical History: No Neuro Surgical History: No Pertinent History Cardiac: No Pertinent History Respiratory: No Pertinent History Gastrointestinal: No Pertinent History Genitourinary: No Pertinent History Musculoskeletal: No Pertinent History Female Surgical History: No Pertinent History Other Surgical History: Patient denies any past surgeries - Social History Smoking Status: Current some day smoker How long have you smoked: 10 years Exposure to second hand smoke: No Alcohol Use: Socially Drug Use: methamphetamines Patient Lives Alone: No Significant Family History: no pertinent family hx - Nursing Vital Signs Nursing Vital Signs: Initial Vital Signs Temperature 97.7 F 08/18/18 16:42 Pulse Rate 100 H 08/18/18 16:42 Respiratory Rate 18 08/18/18 16:42 Blood Pressure 136/85 08/18/18 16:42 O2 Sat by Pulse Oximetry 100 08/18/18 16:42 Pain Scale Pain Intensity 0 - Physical Exam General Appearance: no apparent distress Eye Exam: PERRL/EOMI Ears, Nose, Throat Exam: moist mucous membranes Neck Exam: normal inspection Respiratory Exam: normal breath sounds Cardiovascular Exam: regular rate/rhythm Gastrointestinal/Abdomen Exam: soft, No tenderness Back Exam: normal range of motion, No vertebral tenderness Extremity Exam: normal inspection Neurologic Exam: alert, oriented x 3, cooperative, 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, normal mood/affect Skin Exam: normal color, warm, dry - Course Nursing assessment & vital signs reviewed: Yes EKG Interpreted by Me: Sinus Rhythm, Other (no stemi) - CT Exams Head CT Interpretation: Negative, Discussed w/radiologist Ordered Tests: Active Orders 24 hr Category Date Time Status EKG-ER Only STAT Care 08/18/18 16:33 Active IV Insertion STAT Care 08/18/18 16:33 Active HEAD WITHOUT CONTRAST [CT] Stat Exams 08/18/18 17:35 Taken CBC W DIFF Stat Lab 08/18/18 17:00 Completed CMP Stat Lab 08/18/18 17:00 Completed HCG QUALITATIVE,SERUM Stat Lab 08/18/18 17:00 Completed TROPONIN Q3H Lab 08/18/18 17:00 Completed TROPONIN Q3H Lab 08/18/18 19:45 Ordered TROPONIN Q3H Lab 08/18/18 22:45 Ordered TROPONIN Q3H Lab 08/19/18 01:45 Ordered TROPONIN Q3H Lab 08/19/18 04:45 Ordered Urine Triage Profile Stat Lab 08/18/18 16:34 Completed Medication Summary Discontinued Medications Generic Name Dose Route Start Last Admin Trade Name Freq PRN Reason Stop Dose Admin Sodium Chloride 1,000 mls @ 999 mls/hr 08/18/18 16:33 08/18/18 17:18 Sodium Chloride 0.9% 1000 Ml IV 08/18/18 17:33 999 mls/hr .Q1H1M STA Administration Sodium Chloride Confirm 08/18/18 17:15 Sodium Chloride 0.9% 1000 Ml Administered 08/18/18 17:16 Dose 1,000 mls @ ud .ROUTE .[facility] Meclizine HCl 25 mg 08/18/18 16:33 08/18/18 17:18 Antivert 25 Mg PO 08/18/18 16:34 25 mg STAT ONE Administration Meclizine HCl Confirm 08/18/18 17:15 Antivert 25 Mg Administered 08/18/18 17:16 Dose 25 mg .ROUTE .[facility] Lab/Rad Data: Laboratory Result Diagrams 08/18/18 17:00 08/18/18 17:00 Laboratory Results 08/18/18 08/18/18 08/18/18 Range/Units 17:00 17:00 17:00 WBC (4.0-10.5) K/mm3 RBC (4.1-5.4) M/mm3 Hgb (12.0-16.0) gm/dl Hct (35-47) % MCV (78-100) fl MCH (26-32) pg MCHC (32-36) g/dl RDW (11.5-14.0) % Plt Count (150-450) K/mm3 MPV (6-9.5) fl Gran % (36.0-66.0) % Eos # (Auto) (0-0.5) Absolute Lymphs (auto) (1.0-4.6) Absolute Monos (auto) (0.0-1.3) Lymphocytes % (24.0-44.0) % Monocytes % (0.0-12.0) % Eosinophils % (0.00-5.0) % Basophils % (0.0-0.4) % Absolute Granulocytes (1.4-6.9) Basophils # (0-0.4) Sodium 140 (137-145) mmol/L Potassium 3.7 (3.5-5.1) mmol/L Chloride 106 (98-107) mmol/L Carbon Dioxide 23 (22-30) mmol/L Anion Gap 14.5 (5-15) MEQ/L BUN 12 (7-17) mg/dL Creatinine 0.75 (0.52-1.04) mg/dL Estimated GFR > 60.0 ML/MIN Glucose 96 (74-106) mg/dL Calcium 9.8 (8.4-10.2) mg/dL Total Bilirubin 0.30 (0.2-1.3) mg/dL AST 24 (14-36) U/L ALT 36 H (0-35) U/L Alkaline Phosphatase 121 (38-126) U/L Troponin I < 0.012 (0.000-0.034) ng/mL Serum Total Protein 7.6 (6.3-8.2) g/dL Albumin 4.4 (3.5-5.0) g/dL Serum , Qual NEGATIVE (Negative) Urine Opiates Level (NEGATIVE) Ur Methadone (NEGATIVE) Urine Barbiturates (NEGATIVE) Ur Phencyclidine (PCP) (NEGATIVE) Urine Amphetamine (NEGATIVE) U Benzodiazepine Level (NEGATIVE) Urine Cocaine (NEGATIVE) Urine Marijuana (THC) (NEGATIVE) 08/18/18 08/18/18 Range/Units 17:00 16:34 WBC 14.7 H (4.0-10.5) K/mm3 RBC 4.35 (4.1-5.4) M/mm3 Hgb 13.3 (12.0-16.0) gm/dl Hct 39.6 (35-47) % MCV 91.0 (78-100) fl MCH 30.6 (26-32) pg MCHC 33.6 (32-36) g/dl RDW 12.7 (11.5-14.0) % Plt Count 214 (150-450) K/mm3 MPV 10.5 H (6-9.5) fl Gran % 71.2 H (36.0-66.0) % Eos # (Auto) 0.25 (0-0.5) Absolute Lymphs (auto) 2.94 (1.0-4.6) Absolute Monos (auto) 0.98 (0.0-1.3) Lymphocytes % 20.1 L (24.0-44.0) % Monocytes % 6.7 (0.0-12.0) % Eosinophils % 1.7 (0.00-5.0) % Basophils % 0.3 (0.0-0.4) % Absolute Granulocytes 10.45 H (1.4-6.9) Basophils # 0.04 (0-0.4) Sodium (137-145) mmol/L Potassium (3.5-5.1) mmol/L Chloride (98-107) mmol/L Carbon Dioxide (22-30) mmol/L Anion Gap (5-15) MEQ/L BUN (7-17) mg/dL Creatinine (0.52-1.04) mg/dL Estimated GFR ML/MIN Glucose (74-106) mg/dL Calcium (8.4-10.2) mg/dL Total Bilirubin (0.2-1.3) mg/dL AST (14-36) U/L ALT (0-35) U/L Alkaline Phosphatase (38-126) U/L Troponin I (0.000-0.034) ng/mL Serum Total Protein (6.3-8.2) g/dL Albumin (3.5-5.0) g/dL Serum , Qual (Negative) Urine Opiates Level NEGATIVE (NEGATIVE) Ur Methadone NEGATIVE (NEGATIVE) Urine Barbiturates NEGATIVE (NEGATIVE) Ur Phencyclidine (PCP) NEGATIVE (NEGATIVE) Urine Amphetamine NEGATIVE (NEGATIVE) U Benzodiazepine Level NEGATIVE (NEGATIVE) Urine Cocaine NEGATIVE (NEGATIVE) Urine Marijuana (THC) NEGATIVE (NEGATIVE) - Progress Progress: improved Progress Note: 08/18/18 18:20 see your doctor, oral fluids, return if worse, antivert - Departure Departure Disposition: Home Clinical Impression: Vertigo Condition: Stable Critical Care Time: No Referrals: MIKI HOUGH NP [NON-STAFF PHY W/O PRIVILEGES] - Prescriptions: Meclizine HCl 25 mg [Antivert 25 mg] 1 tab PO Q6H PRN PRN #24 tablet PRN Reason: dizziness
[2018-08-18 17:14] LABS: BASOPHIL % 0.3 % (0.0-0.4); Basophil (Absolute #) 0.04 (0-0.4); Eosinophil % 1.7 % (0.00-5.0); Eosinophil (Absolute #) 0.25 (0-0.5); Granulocyte Absolute (ANC) 10.45 (1.4-6.9); Granulocytes % 71.2 % (36.0-66.0); Hematocrit 39.6 % (35-47); Hemoglobin 13.3 gm/dl (12.0-16.0); Lymphocyte (Absolute #) 2.94 (1.0-4.6); Lymphocytes % 20.1 % (24.0-44.0); Mean Corpuscular Hemoglobin 30.6 pg (26-32); Mean Corpuscular Hgb Concent. 33.6 g/dl (32-36); Mean Platelet Volume 10.5 fl (6-9.5); Monocyte (Absolute #) 0.98 (0.0-1.3); Monocytes % 6.7 % (0.0-12.0); Platelet Count 214 K/mm3 (150-450); Red Blood Count 4.35 M/mm3 (4.1-5.4); Red Cell Distribution Width 12.7 % (11.5-14.0); White Blood Count 14.7 K/mm3 (4.0-10.5)
[2018-08-18] MEDS ORDERED: ANTIVERT 25 MG ONE (17:15)
[2018-08-18] MEDS ORDERED: Sodium Chloride 0.9% 1000 ML 1,000 ML ONE (17:15)
[2018-08-18 17:23] LABS: ALBUMIN 4.4 g/dL (3.5-5.0); ALKALINE PHOSPHATASE 121 U/L (38-126); ANION GAP 14.5 MEQ/L (5-15); BLOOD UREA NITROGEN 12 mg/dL (7-17); CHLORIDE 106 mmol/L (98-107); Calcium 9.8 mg/dL (8.4-10.2); Carbon Dioxide 23 mmol/L (22-30); Creatinine 1 0.75 mg/dL (0.52-1.04); Glucose 96 mg/dL (74-106); Potassium 3.7 mmol/L (3.5-5.1); SGOT/AST 24 U/L (14-36); SGPT/ALT 36 U/L (0-35); SODIUM 140 mmol/L (137-145); Total Protein 7.6 g/dL (6.3-8.2)
[2018-08-18 17:27] LABS: Amphetamine,Urine NEGATIVE (NEGATIVE); Barbiturate,Urine NEGATIVE (NEGATIVE); Benzodiazepine,Urine NEGATIVE (NEGATIVE); Cocaine,Urine NEGATIVE (NEGATIVE); Methadone,Urine NEGATIVE (NEGATIVE); Opiate,Urine NEGATIVE (NEGATIVE); PCP,Urine NEGATIVE (NEGATIVE); THC,Urine NEGATIVE (NEGATIVE)
[2018-08-18 18:16] VITALS: O2SAT 98
[2018-08-18 19:21] VITALS: BP 106/65; PULSE 90
--- NOTE | 2018-08-18 21:30 | XRAY ---
Indication: Dizziness 3 days. Multiple contiguous axial images obtained through the head without contrast. Comparison: None Normal appearing brain parenchyma, ventricles, and bony calvarium. Visualized paranasal sinuses and mastoid air cells are clear. Impression: Normal CT head without contrast exam. CTDI 68.32
== END 2018-08-18 19:22 | disposition home or self-care (01) ==
LOC: ED 16:14
DX: R42 Dizziness and giddiness (principal)
CPT/HCPCS: 36000; 36415; 70450; 80053; 80307; 81025; 84484; 85025; 93005; 96360; 99284; A9270-GY

== ENCOUNTER 2020-06-07 18:46 | Observation (INO) | payer BC ==
[2020-06-07] MEDS ORDERED: Sodium Chloride 0.9% 1000 ML 1,000 ML IV STA (18:48)
[2020-06-07] MEDS ORDERED: Zofran 4 MG/2 ML VIAL IV ONE (18:48)
[2020-06-07] MEDS ORDERED: PROTONIX 40 MG IV IV ONE ×2 (18:51→19:09)
--- NOTE | 2020-06-07 19:04 | ERPHSYRPT ---
- History of Present Illness Time Seen by Provider: 06/07/20 18:47 Source: patient, family, EMS Exam Limitations: clinical condition Patient Subjective Stated Complaint: pt here for overdose on 15 klonopin 1mg and captain kaley unknown amount, pt posted a facebook post that concerned family and freinds so ems and police called and pt was found in a [facility] parking lot Triage Nursing Assessment: pt arrived per ambulance, drowsy, but answers ques tions, she keeps repeating just let me go, o2 2 lnc ,skinw w/d/p. abd soft, resp easy, during traige pt had seizure lasting 30 secs, no edema noted Physician History: This is a 29-year-old white female who has a history of seizure disorders and anxiety issues who had suicidal ideation and intention prior to arrival. She admits to taking 15 tablets of 1 mg Klonopin and drinking 1/5 of Captain Kaley alcohol. It is unclear of the timing of this. 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 She was maintaining her airway. EMS arrived and gave 2 mg of intravenous Narcan which did not change her condition much. Patient's vital signs are stable. She was placed on 2 L of oxygen via nasal cannula and arrives with an oxygen saturation of 99%. Her heart rate was in the 90s and her systolic blood press ure is 135. Patient arrives in the emergency department apartment speaking in a confused fashion and tearful intermittently. She was able to give us the above information. Contacted poison control and their recommendation is to monitor the patient for at least 6 hours. If the patient has improved to baseline she can be discharged to home. If she is still not at baseline after 6 hours, she should be observed for 24 hours from the time of ingestion. Timing/Duration: today Severity of Symptoms-Max: moderate Severity of Symptoms-Current: moderate Context related to: other (She states she is tired of having such a deep anxiety.) Suicidal thoughts: attempt, ingestion Associated Symptoms: anxiety, confused, depressed, ingestion Previous symptoms: other (Unclear) Allergies/Adverse Reactions: chlordiazepoxide HCl [From Librium] Allergy (Verified 05/03/18 03:59) levetiracetam [From Keppra] Allergy (Verified 05/03/18 03:59) Home Medications: Aripiprazole [Abilify] 5 mg PO BID 05/03/18 [History] Bupropion HCl Xl 150 mg [Wellbutrin XL 150 MG] 300 mg PO DAILY 05/03/18 [History] Clonazepam 1 mg PO BID 05/03/18 [History] Fluoxetine HCl 20 mg [Prozac 20 MG] 40 mg PO DAILY 05/03/18 [History] Venlafaxine HCl [Effexor] 100 mg PO DAILY 05/03/18 [History] Topiramate [Trokendi Xr] 1 ea DAILY 06/07/20 [History] Hx Tetanus, Diphtheria Vaccination/Date Given: Yes Hx Influenza Vaccination/Date Given: No Hx Pneumococcal Vaccination/Date Given: No Immunizations Up to Date: Yes Travel Risk - International Travel Have you traveled outside of the country in past 3 weeks: No - Coronavirus Screening Are you exhibiting any of the following symptoms?: No Close contact with a COVID-19 positive Pt in past 14-21 Days: No - Past Medical History Pertinent Past Medical History: Yes Neurological History: No Pertinent History ENT History: No Pertinent History Cardiac History: No Pertinent History Respiratory History: No Pertinent History Endocrine Medical History: No Pertinent History Musculoskeletal History: No Pertinent History GI Medical History: No Pertinent History History: No Pertinent History Psycho-Social History: Anxiety, Depression Female Reproductive Disorders: No Pertinent History Other Medical History: Hep C positive - Past Surgical History Past Surgical History: No Neuro Surgical History: No Pertinent History Cardiac: No Pertinent History Respiratory: No Pertinent History Gastrointestinal: No Pertinent History Genitourinary: No Pertinent History Musculoskeletal: No Pertinent History Female Surgical History: No Pertinent History Other Surgical History: Patient denies any past surgeries - Social History Smoking Status: Current some day smoker How long have you smoked: 10 years Exposure to second hand smoke: No Alcohol Use: Socially Drug Use: methamphetamines Patient Lives Alone: No Significant Family History: no pertinent family hx - Female History Hx Last Menstrual Period: unsure Hx Now: No - Review of Systems Constitutional: No Symptoms Eyes: No Symptoms Ears, Nose, & Throat: No Symptoms Respiratory: No Symptoms Cardiac: No Symptoms Abdominal/Gastrointestinal: No Symptoms Genitourinary Symptoms: No Symptoms Musculoskeletal: No Symptoms Skin: No Symptoms Neurological: Lethargy Psychological: Anxiety, Depression, Suicidal Ideations Endocrine: No Symptoms Hematologic/Lymphatic: No Symptoms Immunological/Allergic: No Symptoms All Other Systems: Reviewed and Negative - Nursing Vital Signs Nursing Vital Signs: Initial Vital Signs Temperature 97.2 F 06/07/20 18:47 Pulse Rate 127 H 06/07/20 18:47 Respiratory Rate 14 06/07/20 18:47 Blood Pressure 120/85 06/07/20 18:47 O2 Sat by Pulse Oximetry 98 06/07/20 18:47 Pain Scale Pain Intensity 0 - Physical Exam General Appearance: lethargy Eyes, Ears, Nose, Throat Exam: normal ENT inspection, moist mucous membranes Neck Exam: normal inspection, non-tender, supple, full range of motion Respiratory Exam: normal breath sounds, lungs clear, airway intact, No chest tenderness, No respiratory distress Cardiovascular Exam: normal peripheral pulses, tachycardia Gastrointestinal/Abdominal Exam: soft, normal bowel sounds, No tenderness Extremities Exam: normal inspection, normal range of motion, No evidence of i njury Current Suicidality: has suicide plan 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 I cannot assess her completely because she is lethargic) Appearance: impaired insight, impaired recent memory, impaired remote memory Behavior/Eye Contact/Speech: intoxicated appearance Thoughts/Hallucinations: incoherent (Ability to answer questions) Skin Exam: normal color, warm, dry SpO2 Interpretation: normal SpO2: 98 O2 Delivery: Room Air - Course Nursing assessment & vital signs reviewed: Yes EKG Interpreted by Me: RATE (99), Sinus Rhythm, NORMAL AXIS, NORMAL INTERVALS, NORMAL QRS, NORMAL ST-T, Other (No acute ischemic changes. No comparison EKG present) Ordered Tests: Active Orders 24 hr Category Date Time Status Stove Installer STAT Care 06/07/20 18:50 Active Cath for Specimen-Straight STAT Care 06/07/20 18:50 Active EKG-ER Only STAT Care 06/07/20 18:48 Active Cruz [Catheter-Millen Cruz] STAT Care 06/07/20 18:51 Active IV Insertion STAT Care 06/07/20 18:48 Active HEAD WITHOUT CONTRAST [CT] Stat Exams 06/07/20 18:49 Taken ABG [ARTERIAL BLOOD GASES] Stat Lab 06/07/20 18:51 Completed ACETAMINOPHEN Stat Lab 06/07/20 19:01 Completed CBC W DIFF Stat Lab 06/07/20 19:01 Completed CMP Stat Lab 06/07/20 19:01 Completed CULTURE,URINE Stat Lab 06/07/20 19:01 Received ETHYL ALCOHOL Stat Lab 06/07/20 19:01 Completed Lactic Acid Stat Lab 06/07/20 18:55 Completed MAG [MAGNESIUM] Stat Lab 06/07/20 19:01 Completed SALICYLATE Stat Lab 06/07/20 19:01 Completed UA W/RFX UR CULTURE Stat Lab 06/07/20 19:01 Completed Urine Triage Profile Stat Lab 06/07/20 19:01 Completed Transfer Order Routine Transfer 06/07/20 Ordered Medication Summary Discontinued Medications Generic Name Dose Route Start Last Admin Trade Name Micahq PRN Reason Stop Dose Admin Sodium Chloride 1,000 mls @ 999 mls/hr 06/07/20 18:48 06/07/20 20:24 Sodium Chloride 0.9% 1000 Ml IV 06/07/20 19:48 Infused .Q1H1M STA Infusion Sodium Chloride Confirm 06/07/20 19:09 Sodium Chloride 0.9% 1000 Ml Administered 06/07/20 19:10 Dose 1,000 mls @ ud .ROUTE .[facility] ONE Ondansetron HCl 4 mg 06/07/20 18:48 06/07/20 19:12 Zofran 4 Mg/2 Ml Vial IV 06/07/20 18:49 4 mg STAT ONE Administration Ondansetron HCl Confirm 06/07/20 19:09 Zofran 4 Mg/2 Ml Vial Administered 06/07/20 19:10 Dose 4 mg .ROUTE .STK-[facility] ONE Pantoprazole Sodium 40 mg 06/07/20 18:51 06/07/20 19:12 Protonix 40 Mg Iv IV 06/07/20 18:52 40 mg STAT ONE Administration Pantoprazole Sodium Confirm 06/07/20 19:09 Protonix 40 Mg Iv Administered 06/07/20 19:10 Dose 40 mg IV .STK-[facility] ONE Lab/Rad Data: Laboratory Result Diagrams 06/07/20 19:01 06/07/20 19:01 Laboratory Results 06/07/20 06/07/20 06/07/20 Range/Units 19:01 19:01 19:01 WBC (4.0-10.5) K/mm3 RBC (4.1-5.4) M/mm3 Hgb (12.0-16.0) gm/dl Hct (35-47) % MCV (78-100) fl MCH (26-32) pg MCHC (32-36) g/dl RDW (11.5-14.0) % Plt Count (150-450) K/mm3 MPV (7.5-11.0) fl Gran % (36.0-66.0) % Eos # (Auto) (0-0.5) Absolute Lymphs (auto) (1.0-4.6) Absolute Monos (auto) (0.0-1.3) Lymphocytes % (24.0-44.0) % Monocytes % (0.0-12.0) % Eosinophils % (0.00-5.0) % Basophils % (0.0-0.4) % Absolute Granulocytes (1.4-6.9) Basophils # (0-0.4) Puncture Site pCO2 (35-45) mmHg pO2 (75-100) mmHg Base Excess (-2.0-2.0) O2 Saturation (94-100) g/dF ABG pH (7.35-7.45) ABG HCO3 (22-28) ABG O2 Sat (Measured) (95-100) % Jordy Test A-a Gradient Carboxyhemoglobin (0.0-6.9) % THgb Methemoglobin (1.4-1.5) % Potassium (3.5-5.1) POC O2 Flow Rate % Sodium (137-145) mmol/L Chloride (98-107) mmol/L Carbon Dioxide (23-27) mEq/L Anion Gap (5-15) MEQ/L BUN (7-17) mg/dL Creatinine (0.52-1.04) mg/dL Estimated GFR ML/MIN Glucose (74-106) mg/dL Lactic Acid (0.4-2.0) Calcium (8.4-10.2) mg/dL Magnesium 2.2 (1.6-2.3) mg/dL Total Bilirubin (0.2-1.3) mg/dL AST (14-36) U/L ALT (0-35) U/L Alkaline Phosphatase (38-126) U/L Serum Total Protein (6.3-8.2) g/dL Albumin (3.5-5.0) g/dL Urine Color COLORLESS (YELLOW) Urine Appearance CLEAR (CLEAR) Urine pH 7.0 (5-6) Ur Specific [place] 1.001 (1.005-1.025) Urine Protein NEGATIVE (Negative) Urine Ketones NEGATIVE (NEGATIVE) Urine Blood NEGATIVE (0-5) Mandeep/ul Urine Nitrite NEGATIVE (NEGATIVE) Urine Bilirubin NEGATIVE (NEGATIVE) Urine Urobilinogen NEGATIVE (0-1) mg/dL Ur Leukocyte Esterase NEGATIVE (NEGATIVE) Urine WBC (Auto) NONE (0-5) /HPF Urine RBC (Auto) NONE SEEN (0-2) /HPF U Epithel Cells (Auto) NONE (FEW) /HPF Urine Bacteria (Auto) NONE SEEN (NEGATIVE) /HPF Urine Mucus (Auto) SLIGHT (NEGATIVE) /HPF Urine Culture Reflexed NO (NO) Urine Glucose NEGATIVE (NEGATIVE) mg/dL Salicylates (2-20) mg/dL Urine Opiates Level NEGATIVE (NEGATIVE) Ur Methadone NEGATIVE (NEGATIVE) Acetaminophen (10-30) ug/ml Urine Barbiturates NEGATIVE (NEGATIVE) Ur Phencyclidine (PCP) NEGATIVE (NEGATIVE) Urine Amphetamine POSITIVE (NEGATIVE) U Benzodiazepine Level NEGATIVE (NEGATIVE) Urine Cocaine NEGATIVE (NEGATIVE) Urine Marijuana (THC) NEGATIVE (NEGATIVE) Ethyl Alcohol (0-10) mg/dL 06/07/20 06/07/20 06/07/20 Range/Units 19:01 19:01 18:55 WBC 13.5 H (4.0-10.5) K/mm3 RBC 4.94 (4.1-5.4) M/mm3 Hgb 14.3 (12.0-16.0) gm/dl Hct 44.1 (35-47) % MCV 89.3 (78-100) fl MCH 28.9 (26-32) pg MCHC 32.4 (32-36) g/dl RDW 13.7 (11.5-14.0) % Plt Count 211 (150-450) K/mm3 MPV 11.0 (7.5-11.0) fl Gran % 58.5 (36.0-66.0) % Eos # (Auto) 0.13 (0-0.5) Absolute Lymphs (auto) 4.29 (1.0-4.6) Absolute Monos (auto) 1.14 (0.0-1.3) Lymphocytes % 31.7 (24.0-44.0) % Monocytes % 8.4 (0.0-12.0) % Eosinophils % 1.0 (0.00-5.0) % Basophils % 0.4 (0.0-0.4) % Absolute Granulocytes 7.92 H (1.4-6.9) Basophils # 0.05 (0-0.4) Puncture Site pCO2 (35-45) mmHg pO2 (75-100) mmHg Base Excess (-2.0-2.0) O2 Saturation (94-100) g/dF ABG pH (7.35-7.45) ABG HCO3 (22-28) ABG O2 Sat (Measured) (95-100) % Jordy Test A-a Gradient Carboxyhemoglobin (0.0-6.9) % THgb Methemoglobin (1.4-1.5) % Potassium 3.6 (3.5-5.1) POC O2 Flow Rate % Sodium 142 (137-145) mmol/L Chloride 109 H (98-107) mmol/L Carbon Dioxide 20 L (23-27) mEq/L Anion Gap 16.2 H (5-15) MEQ/L BUN 6 L (7-17) mg/dL Creatinine 0.69 (0.52-1.04) mg/dL Estimated GFR > 60.0 ML/MIN Glucose 86 (74-106) mg/dL Lactic Acid 3.4 H (0.4-2.0) Calcium 9.1 (8.4-10.2) mg/dL Magnesium (1.6-2.3) mg/dL Total Bilirubin 0.30 (0.2-1.3) mg/dL AST 23 (14-36) U/L ALT 41 H (0-35) U/L Alkaline Phosphatase 82 (38-126) U/L Serum Total Protein 7.0 (6.3-8.2) g/dL Albumin 4.2 (3.5-5.0) g/dL Urine Color (YELLOW) Urine Appearance (CLEAR) Urine pH (5-6) Ur Specific [place] (1.005-1.025) Urine Protein (Negative) Urine Ketones (NEGATIVE) Urine Blood (0-5) Mandeep/ul Urine Nitrite (NEGATIVE) Urine Bilirubin (NEGATIVE) Urine Urobilinogen (0-1) mg/dL Ur Leukocyte Esterase (NEGATIVE) Urine WBC (Auto) (0-5) /HPF Urine RBC (Auto) (0-2) /HPF U Epithel Cells (Auto) (FEW) /HPF Urine Bacteria (Auto) (NEGATIVE) /HPF Urine Mucus (Auto) (NEGATIVE) /HPF Urine Culture Reflexed (NO) Urine Glucose (NEGATIVE) mg/dL Salicylates < 1.0 L (2-20) mg/dL Urine Opiates Level (NEGATIVE) Ur Methadone (NEGATIVE) Acetaminophen < 10 L (10-30) ug/ml Urine Barbiturates (NEGATIVE) Ur Phencyclidine (PCP) (NEGATIVE) Urine Amphetamine (NEGATIVE) U Benzodiazepine Level (NEGATIVE) Urine Cocaine (NEGATIVE) Urine Marijuana (THC) (NEGATIVE) Ethyl Alcohol 147 H (0-10) mg/dL 06/07/20 Range/Units 18:51 WBC (4.0-10.5) K/mm3 RBC (4.1-5.4) M/mm3 Hgb (12.0-16.0) gm/dl Hct (35-47) % MCV (78-100) fl MCH (26-32) pg MCHC (32-36) g/dl RDW (11.5-14.0) % Plt Count (150-450) K/mm3 MPV (7.5-11.0) fl Gran % (36.0-66.0) % Eos # (Auto) (0-0.5) Absolute Lymphs (auto) (1.0-4.6) Absolute Monos (auto) (0.0-1.3) Lymphocytes % (24.0-44.0) % Monocytes % (0.0-12.0) % Eosinophils % (0.00-5.0) % Basophils % (0.0-0.4) % Absolute Granulocytes (1.4-6.9) Basophils # (0-0.4) Puncture Site RIGHT RADIAL pCO2 32 L (35-45) mmHg pO2 131 H* (75-100) mmHg Base Excess -2.3 L (-2.0-2.0) O2 Saturation 92.2 L (94-100) g/dF ABG pH 7.43 (7.35-7.45) ABG HCO3 21.2 L (22-28) ABG O2 Sat (Measured) 99.4 (95-100) % Jordy Test YES A-a Gradient 29 Carboxyhemoglobin 6.2 (0.0-6.9) % THgb Methemoglobin 1.0 L (1.4-1.5) % Potassium 3.8 (3.5-5.1) POC O2 Flow Rate 28 % Sodium (137-145) mmol/L Chloride (98-107) mmol/L Carbon Dioxide 22 L (23-27) mEq/L Anion Gap (5-15) MEQ/L BUN (7-17) mg/dL Creatinine (0.52-1.04) mg/dL Estimated GFR ML/MIN Glucose (74-106) mg/dL Lactic Acid (0.4-2.0) Calcium (8.4-10.2) mg/dL Magnesium (1.6-2.3) mg/dL Total Bilirubin (0.2-1.3) mg/dL AST (14-36) U/L ALT (0-35) U/L Alkaline Phosphatase (38-126) U/L Serum Total Protein (6.3-8.2) g/dL Albumin (3.5-5.0) g/dL Urine Color (YELLOW) Urine Appearance (CLEAR) Urine pH (5-6) Ur Specific [place] (1.005-1.025) Urine Protein (Negative) Urine Ketones (NEGATIVE) Urine Blood (0-5) Mandeep/ul Urine Nitrite (NEGATIVE) Urine Bilirubin (NEGATIVE) Urine Urobilinogen (0-1) mg/dL Ur Leukocyte Esterase (NEGATIVE) Urine WBC (Auto) (0-5) /HPF Urine RBC (Auto) (0-2) /HPF U Epithel Cells (Auto) (FEW) /HPF Urine Bacteria (Auto) (NEGATIVE) /HPF Urine Mucus (Auto) (NEGATIVE) /HPF Urine Culture Reflexed (NO) Urine Glucose (NEGATIVE) mg/dL Salicylates (2-20) mg/dL Urine Opiates Level (NEGATIVE) Ur Methadone (NEGATIVE) Acetaminophen (10-30) ug/ml Urine Barbiturates (NEGATIVE) Ur Phencyclidine (PCP) (NEGATIVE) Urine Amphetamine (NEGATIVE) U Benzodiazepine Level (NEGATIVE) Urine Cocaine (NEGATIVE) Urine Marijuana (THC) (NEGATIVE) Ethyl Alcohol (0-10) mg/dL - Progress Progress: improved, re-examined Progress Note: 06/07/20 19:38 Reexamination of the patient shows that she is much more awake and alert at this time. Her vital signs are stable. 06/07/20 20:44 CAT scan of the head without contrast shows no acute intracranial abnormality. 06/07/20 21:17 Medical decision making: This patient has suicidal attempt with overdose. Pat ient will be monitored overnight with a psychiatric evaluation tomorrow morning. I spoke with Dr. Hernandez happens to be the patient's primary care physician. We will admit her into the intensive care unit. Discussed with : Joe Counseled pt/family regarding: lab results, diagnosis, need for follow-up - Departure Departure Disposition: Observation Clinical Impression: Suicide attempt, Overdose Condition: Stable Critical Care Time: No Referrals: TERENCE HERNANDEZ [Primary Care Provider] -
[2020-06-07 19:08] LABS: Absolute Neutrophil Ct (ANC) 7.92 (1.4-6.9); BASOPHIL % 0.4 % (0.0-0.4); Basophil (Absolute #) 0.05 (0-0.4); Eosinophil (Absolute #) 0.13 (0-0.5); Hematocrit 44.1 % (35-47); Hemoglobin 14.3 gm/dl (12.0-16.0); Lymphocyte (Absolute #) 4.29 (1.0-4.6); Lymphocytes % 31.7 % (24.0-44.0); Mean Cell Volume 89.3 fl (78-100); Mean Corpuscular Hemoglobin 28.9 pg (26-32); Mean Corpuscular Hgb Concent. 32.4 g/dl (32-36); Monocyte (Absolute #) 1.14 (0.0-1.3); Monocytes % 8.4 % (0.0-12.0); Neutrophil % 58.5 % (36.0-66.0); Platelet Count 211 K/mm3 (150-450); Red Blood Count 4.94 M/mm3 (4.1-5.4); Red Cell Distribution Width 13.7 % (11.5-14.0); White Blood Count 13.5 K/mm3 (4.0-10.5)
[2020-06-07] MEDS ORDERED: Sodium Chloride 0.9% 1000 ML 1,000 ML ONE (19:09)
[2020-06-07] MEDS ORDERED: Zofran 4 MG/2 ML VIAL ONE (19:09)
[2020-06-07 19:10] LABS: Appearance CLEAR (CLEAR); Bilirubin NEGATIVE (NEGATIVE); Blood NEGATIVE Ery/ul (0-5); Glucose NEGATIVE (NEGATIVE); Ketones NEGATIVE (NEGATIVE); Leukocyte Esterase NEGATIVE (NEGATIVE); Mucus SLIGHT /HPF (NEGATIVE); Nitrite NEGATIVE (NEGATIVE); Protein,Urine Dip NEGATIVE (Negative); Specific Gravity 1.001 (1.005-1.025); Urobilinogen NEGATIVE mg/dL (0-1)
[2020-06-07 19:11] LABS: ARTERIAL BLOOD GAS PCO2 32 mmHg (35-45); ARTERIAL BLOOD GAS PO2 131 mmHg (75-100); ARTERIAL BLOOD GAS pH 7.43 (7.35-7.45); HCO3- 21.2 (22-28)
[2020-06-07 19:12] LABS: ARTERIAL BLD GAS O2 SATURATION 99.4 % (95-100); ARTERIAL BLOOD GAS BASE EXCESS -2.3 (-2.0-2.0)
[2020-06-07 19:14] LABS: A-aADO2 29; ABG POTASSIUM 3.8 (3.5-5.1); CARBON DIOXIDE 22 mEq/L (23-27)
[2020-06-07 19:15] LABS: ARTERIAL BLOOD GAS FIO2 28 %
[2020-06-07 19:16] LABS: ABG SITE RIGHT RADIAL; ALLEN TEST OK? YES; CARBOXYHEMOGLOBIN 6.2 % THgb (0.0-6.9); HGB O2 SAT 92.2 g/dF (94-100)
[2020-06-07 19:17] LABS: ACETAMINOPHEN < 10 ug/ml (10-30); ALBUMIN 4.2 g/dL (3.5-5.0); ALKALINE PHOSPHATASE 82 U/L (38-126); ANION GAP 16.2 MEQ/L (5-15); BLOOD UREA NITROGEN 6 mg/dL (7-17); CHLORIDE 109 mmol/L (98-107); Calcium 9.1 mg/dL (8.4-10.2); Carbon Dioxide 20 mmol/L (22-30); Creatinine 1 0.69 mg/dL (0.52-1.04); EST GLOMERULAR FILTRATION RATE > 60.0 ML/MIN; ETHYL ALCOHOL 147 mg/dL (0-10); Glucose 86 mg/dL (74-106); Potassium 3.6 mmol/L (3.5-5.1); SALICYLATE < 1.0 mg/dL (2-20); SGOT/AST 23 U/L (14-36); SGPT/ALT 41 U/L (0-35); SODIUM 142 mmol/L (137-145)
[2020-06-07 19:23] LABS: Barbiturate,Urine NEGATIVE (NEGATIVE); Benzodiazepine,Urine NEGATIVE (NEGATIVE); Cocaine,Urine NEGATIVE (NEGATIVE); Methadone,Urine NEGATIVE (NEGATIVE); Opiate,Urine NEGATIVE (NEGATIVE); PCP,Urine NEGATIVE (NEGATIVE); THC,Urine NEGATIVE (NEGATIVE)
[2020-06-07 19:46] LABS: RBC NONE SEEN /HPF (0-2)
[2020-06-07 19:47] LABS: Amphetamine,Urine POSITIVE (NEGATIVE); Bacteria NONE SEEN /HPF (NEGATIVE)
[2020-06-07 22:21] LABS: INFLUENZA A NEGATIVE (NEGATIVE); INFLUENZA B NEGATIVE (NEGATIVE); RESPIRATORY SYNCTIAL VIRUS NEGATIVE (Negative)
[2020-06-07] MEDS ORDERED: Zofran 4 MG/2 ML VIAL IV PRN (22:52)
[2020-06-07] MEDS ORDERED: TYLENOL 325 MG PO PRN (22:52)
[2020-06-08] MEDS: Sodium Chloride 0.9% 1000 ML 1,000 ML IV SCH ×2 (00:21→10:43)
[2020-06-08 07:22] VITALS: PULSE 98
--- NOTE | 2020-06-08 07:52 | XRAY ---
Indication: Seizure. Drug and alcohol overdose. Attempted suicide. Multiple contiguous axial images obtained through the head without contrast. Comparison: August 18, 2018. Normal appearing brain parenchyma, ventricles, and bony calvarium. Visualized paranasal sinuses and mastoid air cells are clear. Impression: Continued normal CT head without contrast exam. Comment: Preliminary interpretation was made by [facility]. No critical discrepancy.
[2020-06-08 11:21] VITALS: BP 106/63; O2SAT 97
[2020-06-08] MEDS ORDERED: EFFEXOR 37.5 MG PO SCH (12:00)
[2020-06-08] MEDS ORDERED: MEDICATION INTERVENTION PO SCH (12:00)
[2020-06-08] MEDS ORDERED: Wellbutrin XL 150 MG PO SCH (12:00)
[2020-06-08] MEDS ORDERED: Abilify 10 MG PO SCH (12:00)
[2020-06-08] MEDS ORDERED: TOPIRAMATE PO SCH (12:00)
[2020-06-08] MEDS ORDERED: Prozac 20 MG PO SCH (12:00)
--- NOTE | 2020-06-09 08:00 | HP ---
CHIEF COMPLAINT: Overdose on Klonopin, suicidal ideation. HISTORY OF PRESENT ILLNESS: The patient is a 29 year-old white female who has been having problems for many years with depression. She multiple times said that she had suicidal thoughts. She had emergency visit with her counselor at the [facility] within the last week or so. The patient discussed with the nurse practitioner at the [facility] her change in her medications about once every other month. The patient has previously been in the [facility] which she has not been happy with due to her treatment there. The patient is currently in the [facility] system. She does not routinely have primary care provider that she sees otherwise. PAST MEDICAL/SURGICAL HISTORY: The patient's medical history is otherwise significant for no past surgeries. She uses methamphetamine as well. HOME MEDICATIONS: Currently are Abilify 5 mg b.i.d., Wellbutrin 300 mg daily, clonazepam 1 twice a day at 1 mg, fluoxetine 40 mg a day, venlafaxine 100 mg a day, Trokendi 1 tablet a day. ALLERGIES: LIBRIUM. KEPPRA. PHYSICAL EXAMINATION: The patient was initially lethargic in the emergency room. VITAL SIGNS: Her vital signs showed temperature 97.2F, pulse 127, respiratory rate 14 and blood pressure 120/85. O2 saturation is 98%. HEENT: Normocephalic, atraumatic. Pupils equal round reactive to light. Extraocular movements intact. Oropharynx is pink and moist. NECK: Supple. Currently has an IJ in the right side. CHEST: Clear to auscultation. HEART: Regular rate and rhythm. : She has a Cruz catheter in. ABDOMEN: Soft. No palpable masses. EXTREMITIES: She also has an IV in her left wrist. She is currently alert and oriented x3. NEUROLOGIC: No focal deficits were noted. LAB DATA AND TESTS: The patient's laboratory studies from the emergency room were negative for COVID, influenza and RSV. Her urine drug screen was positive for amphetamines but benzodiazepine was reported as negative. UA was otherwise normal. Her white count was 13.5, hemoglobin 14.3, PLT count 211,000. Lactic acid 3.4. Glucose 86, BUN 6, creatinine 0.69. Liver enzymes were essentially normal. Acetaminophen and salicylate were negative. Alcohol was 147. Magnesium 2.2. ABG showed a pH of 7.43, pCO2 of 32 and pO2 of 131. HOSPITAL COURSE: The patient has been admitted to the ICU for observation. She is currently awake, alert and speaking to her significant other. The patient reports she is currently undergoing a divorce. She is worried about her child custody. She has a special needs daughter that she takes care of. She had a consultation with the [facility] which currently is recommending inpatient treatment. The patient currently is unwilling to sign in voluntarily and she has been made emergency fdc. Unfortunately we currently have no bed to send her to. They are waiting on [facility] to open a bed or maybe find one at [facility] although the patient is resistant to going to [facility] due to her previous experiences. The patient will be continued on her medications as listed above with the exception of the Klonopin while she is in our facility.
[2020-06-09] MEDS ORDERED: TOPIRAMATE PO SCH (10:00)
== END 2020-06-08 15:14 ==
LOC: ED 18:46 → ICU 22:43
PROVIDERS: ADMIT Family Medicine; ATTEND Family Medicine
DX: T42.4X2A Poisoning by benzodiazepines, intentional self-harm, initial encounter (principal); Z79.899 Other long term (current) drug therapy
CPT/HCPCS: 0241U; 36000; 36415; 36600; 51702; 70450; 80053; 80307; 81001; 82375; 82803; 83605; 83735; 85025; 87086; 93005; 93041; 96360; 96374; 96375; 99285; J2405; P9612; Q3014; A9270-GY; G0378; G0480

== ENCOUNTER 2021-03-18 17:35 | Emergency (ER) | payer BC, OTHER ==
[2021-03-18] MEDS ORDERED: Sodium Chloride 0.9% 1000 ML 1,000 ML IV SCH (18:30)
[2021-03-18] MEDS ORDERED: Sodium Chloride 0.9% 1000 ML 1,000 ML ONE (18:33)
[2021-03-18 18:35] LABS: Hematocrit 42.1 % (35-47); Hemoglobin 14.1 gm/dl (12.0-16.0); Mean Cell Volume 88.6 fl (78-100); Mean Corpuscular Hemoglobin 29.7 pg (26-32); Mean Corpuscular Hgb Concent. 33.5 g/dl (32-36); Mean Platelet Volume 10.5 fl (7.5-11.0); Platelet Count 255 K/mm3 (150-450); Red Blood Count 4.75 M/mm3 (4.1-5.4); Red Cell Distribution Width 13.1 % (11.5-14.0); White Blood Count 14.4 K/mm3 (4.0-10.5)
[2021-03-18 18:36] VITALS: O2SAT 97
--- NOTE | 2021-03-18 18:36 | ERPHSYRPT ---
- History of Present Illness Time Seen by Provider: 03/18/21 17:45 Historian: patient Exam Limitations: no limitations Patient Subjective Stated Complaint: pt comes in with c/o CP and SOB. pt states that she has nausea and felt diaphoretic at the time. no lightheadedness, dizziness. pt states that she had had alot of anxiety with an on going custody trotter. pt skin is pwd, pt lung sounds clear, pt respirations normal and regular. pt pulses equal and regular. Triage Nursing Assessment: see above. Physician History: Patient is a 30-year-old female presents to our ED with complaints of chest pain and shortness of breath. Patient states symptoms occurred while she was having a panic attack. Patient states she was very anxious. Patient was hyperventilating. She felt nauseous. Patient is currently going through a custody trotter and states that it is triggering her anxiety. Symptoms occurred while she was hyperventilating and resolved shortly thereafter. No associated dizziness or lightheadedness. No syncope. Patient is otherwise healthy. She voices no other complaints or concerns at this time. Timing/Duration: today Activities at Onset: none Quality: aching Location: substernal Chest Pain Radiation: no radiation Severity of Pain-Max: moderate Severity of Pain-Current: mild Modifying Factors: Improves With: nothing Associated Symptoms: nausea, shortness of breath, No vomiting, No cough, No hurts to breathe, No fever, No syncope, No headache, No dizziness Prior Chest Pain/Cardiac Workup: no prior chest pain Nitro Today/Relief: no nitro taken today Aspirin Treatment Today: no aspirin today Allergies/Adverse Reactions: chlordiazepoxide HCl [From Librium] Allergy (Verified 03/18/21 17:51) levetiracetam [From Keppra] Allergy (Verified 03/18/21 17:51) Home Medications: ARIPiprazole [Abilify] 5 mg PO BID 05/03/18 [History] Bupropion HCl Xl 150 mg [Wellbutrin XL 150 MG] 300 mg PO DAILY 05/03/18 [History] Venlafaxine HCl [Effexor] 100 mg PO DAILY 05/03/18 [History] Hx Tetanus, Diphtheria Vaccination/Date Given: No Hx Influenza Vaccination/Date Given: No Hx Pneumococcal Vaccination/Date Given: No Immunizations Up to Date: Yes Travel Risk - International Travel Have you traveled outside of the country in past 3 weeks: No - Coronavirus Screening Are you exhibiting any of the following symptoms?: Yes Symptoms: Headaches/Body Aches/Fatigue Close contact with a COVID-19 positive Pt in past 14-21 Days: No - Vaccine Status Have you recieved a Covid-19 vaccination: Yes Yarn Comber: Pfizer - Vaccination Dates Date of 2cond Vaccination (if applicable): dec - Review of Systems Constitutional: No Symptoms, No Fever, No Chills Eyes: No Symptoms Ears, Nose, & Throat: No Symptoms Respiratory: No Symptoms, No Cough, No Dyspnea Cardiac: No Symptoms, No Chest Pain, No Edema, No Syncope Abdominal/Gastrointestinal: No Symptoms, No Abdominal Pain, No Nausea, No Vomiting, No Diarrhea Genitourinary Symptoms: No Symptoms, No Dysuria Musculoskeletal: No Symptoms, No Back Pain, No Neck Pain Skin: No Symptoms, No Rash Neurological: No Symptoms, No Dizziness, No Focal Weakness, No Sensory Changes Psychological: No Symptoms Endocrine: No Symptoms Hematologic/Lymphatic: No Symptoms Immunological/Allergic: No Symptoms All Other Systems: Reviewed and Negative - Past Medical History Pertinent Past Medical History: Yes Neurological History: Seizures ENT History: No Pertinent History Cardiac History: No Pertinent History Respiratory History: No Pertinent History Endocrine Medical History: No Pertinent History Musculoskeletal History: No Pertinent History GI Medical History: No Pertinent History History: No Pertinent History Psycho-Social History: Anxiety, Depression Female Reproductive Disorders: No Pertinent History Other Medical History: Hep C positive, treatment in 2011 and at last lab draw was dormant, states she had one seizure in 2010, meth, klonopin, and alcohol abuse, overdose in June - Past Surgical History Past Surgical History: Yes Neuro Surgical History: No Pertinent History Cardiac: No Pertinent History Respiratory: No Pertinent History Gastrointestinal: No Pertinent History Genitourinary: No Pertinent History Musculoskeletal: Other Female Surgical History: Section Other Surgical History: states she had left hand surgery when she was injured in the past washing dishes noted, pt had abortionin January 2012 - Social History Smoking Status: Current every day smoker How long have you smoked: 14 years Exposure to second hand smoke: No Alcohol Use: Socially Drug Use: none Patient Lives Alone: No Significant Family History: no pertinent family hx - Female History Hx Last Menstrual Period: 02/21/21 Hx Now: No - Nursing Vital Signs Nursing Vital Signs: Initial Vital Signs Temperature 98.4 F 03/18/21 17:37 Pulse Rate 97 H 03/18/21 17:37 Respiratory Rate 18 03/18/21 17:37 Blood Pressure 138/97 03/18/21 17:37 O2 Sat by Pulse Oximetry 95 03/18/21 17:37 Pain Scale Pain Intensity 5 - Physical Exam General Appearance: no apparent distress, alert Eye Exam: PERRL/EOMI, eyes nml inspection Ears, Nose, Throat Exam: normal ENT inspection, TMs normal, pharynx normal, moist mucous membranes Neck Exam: normal inspection, non-tender, supple, full range of motion Respiratory Exam: normal breath sounds, lungs clear, airway intact, No respiratory distress Cardiovascular Exam: regular rate/rhythm, normal heart sounds, normal peripheral pulses Gastrointestinal/Abdomen Exam: soft, normal bowel sounds, No tenderness, No distention, No mass Back Exam: normal inspection, normal range of motion, No CVA tenderness, No vertebral tenderness Extremity Exam: normal inspection, normal range of motion Neurologic Exam: alert, oriented x 3, cooperative, normal mood/affect, sensation nml, No motor deficits Skin Exam: normal color, warm, dry Lymphatic Exam: No adenopathy SpO2 Interpretation: normal SpO2: 97 O2 Delivery: Room Air - Course Nursing assessment & vital signs reviewed: Yes EKG Interpreted by Me: RATE (95), Sinus Rhythm, NORMAL AXIS, NORMAL INTERVALS - Radiology Exams Chest X-ray Interpretation: Interpreted by me (Right upper lobe granuloma? Otherwise normal lungs heart and bony thorax. No acute findings) Ordered Tests: Active Orders 24 hr Category Date Time Status Fortune Teller STAT Care 03/18/21 18:28 Active EKG-ER Only STAT Care 03/18/21 18:28 Active IV Insertion STAT Care 03/18/21 18:28 Active Pulse Oximetry (ED) STAT Care 03/18/21 18:28 Active CHEST 1 VIEW (PORTABLE) Stat Exams 03/18/21 18:28 Ordered CBC W DIFF Stat Lab 03/18/21 18:28 Completed CMP Stat Lab 03/18/21 18:00 Completed D-DIMER QUANTITATIVE Stat Lab 03/18/21 18:36 Completed ETHYL ALCOHOL Stat Lab 03/18/21 18:00 Completed HCG,QUALITATIVE URINE Stat Lab 03/18/21 18:38 Completed Manual Differential NC Stat Lab 03/18/21 18:28 Completed TROPONIN Q3H Lab 03/18/21 18:00 Completed TROPONIN Q3H Lab 03/18/21 21:30 Ordered TROPONIN Q3H Lab 03/19/21 00:30 Ordered TROPONIN Q3H Lab 03/19/21 03:30 Ordered TROPONIN Q3H Lab 03/19/21 06:30 Ordered TSH [TSH, 3RD Generation] Stat Lab 03/18/21 18:38 Ordered UA W/RFX UR CULTURE Stat Lab 03/18/21 18:38 Completed Medication Summary Generic Name Dose Route Start Last Admin Trade Name Freq PRN Reason Stop Dose Admin Sodium Chloride 1,000 mls @ 100 mls/hr 03/18/21 18:30 03/18/21 18:35 Sodium Chloride 0.9% 1000 Ml IV 04/17/21 18:29 100 mls/hr .Q10H DIANA Administration Lab/Rad Data: Laboratory Result Diagrams 03/18/21 18:28 03/18/21 18:00 Laboratory Results 03/18/21 03/18/21 03/18/21 Range/Units 18:38 18:38 18:36 WBC (4.0-10.5) K/mm3 RBC (4.1-5.4) M/mm3 Hgb (12.0-16.0) gm/dl Hct (35-47) % MCV (78-100) fl MCH (26-32) pg MCHC (32-36) g/dl RDW (11.5-14.0) % Plt Count (150-450) K/mm3 MPV (7.5-11.0) fl D-Dimer 327 (215-500) ng/mL Sodium (137-145) mmol/L Potassium (3.5-5.1) mmol/L Chloride (98-107) mmol/L Carbon Dioxide (22-30) mmol/L Anion Gap (5-15) MEQ/L BUN (7-17) mg/dL Creatinine (0.52-1.04) mg/dL Estimated GFR ML/MIN Glucose (74-106) mg/dL Calcium (8.4-10.2) mg/dL Total Bilirubin (0.2-1.3) mg/dL AST (14-36) U/L ALT (0-35) U/L Alkaline Phosphatase (38-126) U/L Troponin I (0.000-0.034) ng/mL Serum Total Protein (6.3-8.2) g/dL Albumin (3.5-5.0) g/dL Urine Color YELLOW (YELLOW) Urine Appearance SLIGHTLY CLOUDY (CLEAR) Urine pH 5.0 (5-6) Ur Specific [place] 1.012 (1.005-1.025) Urine Protein NEGATIVE (Negative) Urine Ketones NEGATIVE (NEGATIVE) Urine Blood NEGATIVE (0-5) Mandeep/ul Urine Nitrite NEGATIVE (NEGATIVE) Urine Bilirubin NEGATIVE (NEGATIVE) Urine Urobilinogen NEGATIVE (0-1) mg/dL Ur Leukocyte Esterase NEGATIVE (NEGATIVE) Urine WBC (Auto) 0-2 (0-5) /HPF Urine RBC (Auto) NONE (0-2) /HPF U Epithel Cells (Auto) RARE (FEW) /HPF Urine Bacteria (Auto) NONE (NEGATIVE) /HPF Urine Mucus (Auto) SLIGHT (NEGATIVE) /HPF Urine Culture Reflexed NO (NO) Urine Glucose NEGATIVE (NEGATIVE) mg/dL Urine HCG, Qual NEGATIVE (Negative) Ethyl Alcohol (0-10) mg/dL 03/18/21 03/18/21 03/18/21 Range/Units 18:28 18:00 18:00 WBC 14.4 H (4.0-10.5) K/mm3 RBC 4.75 (4.1-5.4) M/mm3 Hgb 14.1 (12.0-16.0) gm/dl Hct 42.1 (35-47) % MCV 88.6 (78-100) fl MCH 29.7 (26-32) pg MCHC 33.5 (32-36) g/dl RDW 13.1 (11.5-14.0) % Plt Count 255 (150-450) K/mm3 MPV 10.5 (7.5-11.0) fl D-Dimer (215-500) ng/mL Sodium 134 L (137-145) mmol/L Potassium 4.0 (3.5-5.1) mmol/L Chloride 105 (98-107) mmol/L Carbon Dioxide 20 L (22-30) mmol/L Anion Gap 12.8 (5-15) MEQ/L BUN 11 (7-17) mg/dL Creatinine 0.86 (0.52-1.04) mg/dL Estimated GFR > 60.0 ML/MIN Glucose 84 (74-106) mg/dL Calcium 9.4 (8.4-10.2) mg/dL Total Bilirubin 0.50 (0.2-1.3) mg/dL AST 22 (14-36) U/L ALT 20 (0-35) U/L Alkaline Phosphatase 100 (38-126) U/L Troponin I < 0.012 (0.000-0.034) ng/mL Serum Total Protein 6.7 (6.3-8.2) g/dL Albumin 4.2 (3.5-5.0) g/dL Urine Color (YELLOW) Urine Appearance (CLEAR) Urine pH (5-6) Ur Specific [place] (1.005-1.025) Urine Protein (Negative) Urine Ketones (NEGATIVE) Urine Blood (0-5) Mandeep/ul Urine Nitrite (NEGATIVE) Urine Bilirubin (NEGATIVE) Urine Urobilinogen (0-1) mg/dL Ur Leukocyte Esterase (NEGATIVE) Urine WBC (Auto) (0-5) /HPF Urine RBC (Auto) (0-2) /HPF U Epithel Cells (Auto) (FEW) /HPF Urine Bacteria (Auto) (NEGATIVE) /HPF Urine Mucus (Auto) (NEGATIVE) /HPF Urine Culture Reflexed (NO) Urine Glucose (NEGATIVE) mg/dL Urine HCG, Qual (Negative) Ethyl Alcohol < 10 (0-10) mg/dL - Progress Progress: improved Air Movement: fair Progress Note: Patient reassessed. She is asymptomatic. Troponin negative. D-dimer negative. Chest x-ray unchanged. Symptoms resolved. There is a mild leukocytosis observed on her CBC. No signs of infection. Chest x-ray is negative. UA negative for UTI. Patient afebrile. Patient denies pain. Leukocytosis will be monitored on an outpatient basis. Patient agrees to follow-up with her primary care doctor within 48 hours for reevaluation. She voices no other complaints or concerns at this time. Portions of this note were created with voice recognition technology. There may be grammatical, spelling, punctuation or sound alike errors 03/18/21 19:32 Blood Culture(s) Obtained: No Antibiotics given: No Counseled pt/family regarding: lab results, diagnosis, need for follow-up, rad results - Departure Departure Disposition: Home Clinical Impression: Anxiety, Hyperventilation Condition: Stable Critical Care Time: No Referrals: TERENCE NICHOLE [Primary Care Provider] - Follow up/PCP as directed Instructions: Anxiety, Adult (DC) Additional Instructions: Discharge/Care Plan THEO KNIGHT NIKIA MAYES was seen on 03/18/21 in the Emergency Room. The patient was counseled regarding Diagnosis,Lab results, Imaging studies, need for follow up and when to return to the Emergency Room. Prescriptions given: Discharge Note I have spoken with the patient and/or caregivers. I have explained the patient's condition, diagnosis and treatment plan based on the information available to me at this time. I have answered the patient's and/or caregiver's questions and addressed any concerns. The patient and/or caregivers have as good understanding of the patient's diagnosis, condition and treatment plan as can be expected at this point. The vital signs have been stable. The patient's condition is stable and appropriate for discharge from the emergency department. The patient will pursue further outpatient evaluation with the primary care physician or other designated or consulting physician as outlined in the discharge instructions. The patient and/or caregivers are agreeable to this plan of care and follow-up instructions have been explained in detail. The patient and/or caregivers have received these instruction. The patient/and or caregivers are aware that any significant change in condition or worsening of symptoms should prompt an immediate return to this or the closest emergency department or call 911.
[2021-03-18 18:44] LABS: ALBUMIN 4.2 g/dL (3.5-5.0); ALKALINE PHOSPHATASE 100 U/L (38-126); ANION GAP 12.8 MEQ/L (5-15); BLOOD UREA NITROGEN 11 mg/dL (7-17); CHLORIDE 105 mmol/L (98-107); Calcium 9.4 mg/dL (8.4-10.2); Carbon Dioxide 20 mmol/L (22-30); Creatinine 1 0.86 mg/dL (0.52-1.04); EST GLOMERULAR FILTRATION RATE > 60.0 ML/MIN; ETHYL ALCOHOL < 10 mg/dL (0-10); Glucose 84 mg/dL (74-106); SGOT/AST 22 U/L (14-36); SGPT/ALT 20 U/L (0-35); SODIUM 134 mmol/L (137-145); Total Protein 6.7 g/dL (6.3-8.2)
[2021-03-18 18:53] LABS: Appearance SLIGHTLY CLOUDY (CLEAR); Bilirubin NEGATIVE (NEGATIVE); Blood NEGATIVE Ery/ul (0-5); Epithelial Cells RARE /HPF (FEW); Glucose NEGATIVE (NEGATIVE); Ketones NEGATIVE (NEGATIVE); Leukocyte Esterase NEGATIVE (NEGATIVE); Mucus SLIGHT /HPF (NEGATIVE); Nitrite NEGATIVE (NEGATIVE); Protein,Urine Dip NEGATIVE (Negative); Specific Gravity 1.012 (1.005-1.025); Urobilinogen NEGATIVE mg/dL (0-1); WBC 0-2 /HPF (0-5)
[2021-03-18 19:44] VITALS: BP 120/87; PULSE 85
[2021-03-18 19:53] LABS: Eosinophil 6 % (0.00-3.0); Lymphocytes 42 % (24-44); Microcytosis 1+; Monocyte 5 % (0.0-12.0); Neutrophils 47 % (36.0-66.0); Platelet Estimate NORMAL (NORMAL); Total Cells Counted 100
--- NOTE | 2021-03-19 08:40 | XRAY ---
Indication: Chest pain. Short of breath. Comparison: February 18, 2021. Portable chest less inflated again with incidental right apical calcified granuloma. Remaining heart and lungs unremarkable. Bony thorax intact. No new/acute findings.
== END 2021-03-18 19:42 | disposition home or self-care (01) ==
LOC: ED 17:35
DX: R06.4 Hyperventilation (principal); F41.9 Anxiety disorder, unspecified; R07.9 Chest pain, unspecified; R11.0 Nausea; Z72.0 Tobacco use
CPT/HCPCS: 36000; 36415; 71045; 80053; 81001; 84443; 84484; 84703; 85025; 85379; 93005; 93041; 94760; 99284; G0480; 80307

== ENCOUNTER 2021-07-19 13:04 | Emergency (ER) | payer BC, OTHER ==
[2021-07-19] MEDS ORDERED: Decadron 4 MG PO STA (13:14)
[2021-07-19] MEDS ORDERED: CLEOCIN 150 MG CAPSULE PO ONE (13:14)
[2021-07-19] MEDS ORDERED: PERCOCET TABLET 5/325MG PO ONE (13:15)
[2021-07-19] MEDS ORDERED: Adacel Vial IM ONE ×2 (13:17→13:20)
[2021-07-19] MEDS ORDERED: CLEOCIN 150 MG CAPSULE ONE (13:18)
[2021-07-19] MEDS ORDERED: PERCOCET TABLET 5/325MG ONE (13:18)
--- NOTE | 2021-07-19 13:20 | ERPHSYRPT ---
- History of Present Illness Time Seen by Provider: 07/19/21 13:13 Source: patient Exam Limitations: no limitations Patient Subjective Stated Complaint: Velez to face Triage Nursing Assessment: Patient ambulated back to ED and transferred self to bed. Patient A+O X 3. Patient's skin pink, warm and dry. Patient complains of velez to face. Patient states 2 days ago she used a face mask and when she took it off she had blisters to her face. Patient has two scabbed areas to forehead and two scabbed areas to right side of cheek. Patient complains of pain 8/10. Physician History: 30 years old female presented to the ER with chief complaint of rash on the face after she used a new mask and is worried about she probably have allergic reaction/chemical burn as she noticed blisters when she took off that mask 2 days ago. Complaining of burning and itching and keeps picking on them now have increased swelling. Has 2 spots on the right cheek and 2 on the forehead which are currently scabbed. No fever or chills reported. Timing/Duration: day(s) (2), constant, gradual onset, worse Quality: burning, itchy Severity: moderate Location: face Possible Causes: other Associated Symptoms: blisters, change in skin texture, rash, swelling/mass/lumps Allergies/Adverse Reactions: chlordiazepoxide HCl [From Librium] Allergy (Verified 07/19/21 13:07) levetiracetam [From Keppra] Allergy (Verified 07/19/21 13:07) Home Medications: ARIPiprazole [Abilify] 5 mg PO BID 05/03/18 [History] Bupropion HCl Xl 150 mg [Wellbutrin XL 150 MG] 300 mg PO DAILY 05/03/18 [History] Venlafaxine HCl [Effexor] 100 mg PO DAILY 05/03/18 [History] Hx Tetanus, Diphtheria Vaccination/Date Given: No Hx Influenza Vaccination/Date Given: No Hx Pneumococcal Vaccination/Date Given: No Immunizations Up to Date: Yes Travel Risk - International Travel Have you traveled outside of the country in past 3 weeks: No - Coronavirus Screening Are you exhibiting any of the following symptoms?: No Close contact with a COVID-19 positive Pt in past 14-21 Days: No - Vaccine Status Have you recieved a Covid-19 vaccination: Yes 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: [employer] - Vaccination Dates Date of 2cond Vaccination (if applicable): dec - Review of Systems Constitutional: No Symptoms Eyes: No Symptoms Ears, Nose, & Throat: No Symptoms Respiratory: No Symptoms Cardiac: No Symptoms Genitourinary Symptoms: No Symptoms Musculoskeletal: No Symptoms Skin: Induration, Rash, Skin Lesions Neurological: No Symptoms Endocrine: No Symptoms Hematologic/Lymphatic: No Symptoms Immunological/Allergic: No Symptoms - Past Medical History Pertinent Past Medical History: Yes Neurological History: Seizures ENT History: No Pertinent History Cardiac History: No Pertinent History Respiratory History: No Pertinent History Endocrine Medical History: No Pertinent History Musculoskeletal History: No Pertinent History GI Medical History: No Pertinent History History: No Pertinent History Psycho-Social History: Anxiety, Depression Female Reproductive Disorders: No Pertinent History Other Medical History: Hep C positive, treatment in 2011 and at last lab draw was dormant, states she had one seizure in 2010, meth, klonopin, and alcohol abuse, overdose in June - Past Surgical History Past Surgical History: Yes Neuro Surgical History: No Pertinent History Cardiac: No Pertinent History Respiratory: No Pertinent History Gastrointestinal: No Pertinent History Genitourinary: No Pertinent History Musculoskeletal: Other Female Surgical History: Section Other Surgical History: states she had left hand surgery when she was injured in the past washing dishes noted, pt had abortionin January 2012 - Social History Smoking Status: Current every day smoker How long have you smoked: 14 years Exposure to second hand smoke: No Alcohol Use: Socially Drug Use: none Patient Lives Alone: No Significant Family History: no pertinent family hx - Female History Hx Last Menstrual Period: 4 days ago Hx Now: No - Nursing Vital Signs Nursing Vital Signs: Initial Vital Signs Temperature 96.5 F 07/19/21 13:08 Pulse Rate 108 H 07/19/21 13:08 Respiratory Rate 18 07/19/21 13:08 Blood Pressure 122/89 07/19/21 13:08 O2 Sat by Pulse Oximetry 99 07/19/21 13:08 Pain Scale Pain Intensity 6 - Physical Exam General Appearance: no apparent distress, alert, anxiety Eye Exam: PERRL/EOMI, eyes nml inspection Ears, Nose, Throat Exam: normal ENT inspection, TMs normal, pharynx normal, moist mucous membranes, other (Scabbed lesions on the forehead and right cheek with some erythema around a mild increased temperature in the area. No discharge. 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 Skin Exam: normal color SpO2 Interpretation: normal SpO2: 99 O2 Delivery: Room Air Ordered Tests: Medication Summary Discontinued Medications Generic Name Dose Route Start Last Admin Trade Name Kailee PRN Reason Stop Dose Admin Bacitracin Zinc 1 gm 07/19/21 22:00 07/19/21 13:24 Bacitracin Zinc 28 Gm Tube TP 08/18/21 21:59 1 gm BID DIANA Administration Clindamycin HCl 300 mg 07/19/21 13:14 07/19/21 13:19 Clindamycin Hcl 150 Mg Capsule PO 07/19/21 13:15 300 mg STAT ONE Administration Clindamycin HCl Confirm 07/19/21 13:18 Clindamycin Hcl 150 Mg Capsule Administered 07/19/21 13:19 Dose 300 mg .ROUTE .STK-MED ONE Dexamethasone 8 mg 07/19/21 13:14 07/19/21 13:23 Dexamethasone 4 Mg Tablet PO 07/19/21 13:15 8 mg ONCE STA Administration Diphtheria/Tetanus/Acell Pertussis 0.5 ml 07/19/21 13:17 07/19/21 13:21 Tdap --Diph,Pertuss(Acell),Tet Vac/Pf 0.5 Ml Vial IM 07/19/21 13:18 0.5 ml .ONCE ONE Administration Diphtheria/Tetanus/Acell Pertussis Confirm 07/19/21 13:20 Tdap --Diph,Pertuss(Acell),Tet Vac/Pf 0.5 Ml Vial Administered 07/19/21 13:21 Dose 0.5 ml IM .STK-MED ONE Oxycodone/Acetaminophen 1 tab 07/19/21 13:15 07/19/21 13:18 Oxycodone Hcl/Apap 5 Mg/325 Mg Tablet PO 07/19/21 13:16 1 tab STAT ONE Administration Oxycodone/Acetaminophen Confirm 07/19/21 13:18 Oxycodone Hcl/Apap 5 Mg/325 Mg Tablet Administered 07/19/21 13:19 Dose 1 tab .ROUTE .STK-MED ONE - Progress Progress: unchanged Progress Note: 07/19/21 13:16 She is given symptomatic treatment along with steroids and placed on clindamycin and topical antibiotics. Recommended taking Benadryl as needed and outpatient follow-up. Discussed signs symptoms of worsening needing return to ER which she seems understanding. Stable for discharge. Counseled pt/family regarding: diagnosis, need for follow-up - Departure Departure Disposition: Home Clinical Impression: Facial cellulitis Condition: Stable Critical Care Time: No Referrals: TERENCE NICHOLE [Primary Care Provider] - Follow up/PCP as directed (Tomorrow for reevaluation) Instructions: Skin Velez Additional Instructions: Keep it clean, do not scratch/remove scabs. Take Tylenol/ibuprofen as needed. Return to ER for increasing pain swelling redness/fever chills. Prescriptions: Ibuprofen 600 mg PO Q6HPRN PRN 10 Days #20 tablet PRN Reason: Pain Bacitracin 28 gm TP BID 7 Days #1 tu clindamycin HCL [Clindamycin HCl] 300 mg PO QID 7 Days #28 cap
[2021-07-19 13:28] VITALS: BP 117/85; PULSE 100
[2021-07-19 14:07] VITALS: O2SAT 99
[2021-07-19] MEDS ORDERED: BACIGUENT 30 GM TP SCH (22:00)
== END 2021-07-19 13:33 | disposition home or self-care (01) ==
LOC: ED 13:04
DX: L03.211 Cellulitis of face (principal); Z72.0 Tobacco use; Z79.899 Other long term (current) drug therapy
CPT/HCPCS: 90471; 90715; 99283; A9270-GY

== ENCOUNTER 2021-07-23 16:07 | Emergency (ER) | payer OTHER ==
[2021-07-23 16:34] VITALS: O2SAT 99
[2021-07-23] MEDS ORDERED: ZOFRAN ODT 4 MG PO ONE (16:44)
[2021-07-23] MEDS ORDERED: ZOFRAN ODT 4 MG ONE (16:45)
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
[2021-07-23 17:13] VITALS: BP 107/76; PULSE 74
== END 2021-07-23 17:24 | disposition home or self-care (01) ==
LOC: ED 16:07
DX: R11.2 Nausea with vomiting, unspecified (principal); R53.1 Weakness; R53.83 Other fatigue; Z72.0 Tobacco use; Z79.899 Other long term (current) drug therapy
CPT/HCPCS: 99283; Q0162

== ENCOUNTER 2021-10-03 22:30 | Emergency (ER) | payer BC, OTHER ==
[2021-10-03] MEDS ORDERED: XYLOCAINE 1% HCL 20 ML MDV IJ ONE (22:31)
[2021-10-03] MEDS ORDERED: Sodium Chloride 0.9% 1000 ML 1,000 ML IV STA (23:17)
[2021-10-03] MEDS ORDERED: Zofran 4 MG/2 ML VIAL IV ONE (23:18)
[2021-10-03] MEDS ORDERED: BENADRYL 50 MG/ML IV ONE (23:18)
[2021-10-03] MEDS ORDERED: CLONIDINE 0.1 MG TABLET PO ONE (23:18)
[2021-10-03 23:30] LABS: Hematocrit 42.3 % (35-47); Hemoglobin 14.3 g/dL (12.0-16.0); Mean Cell Volume 88.1 fL (78-100); Mean Corpuscular Hemoglobin 29.8 pg (26-32); Mean Corpuscular Hgb Concent. 33.8 g/dL (32-36); Mean Platelet Volume 10.7 fL (7.5-11.0); Platelet Count 275 x10^3/uL (150-450); Red Cell Distribution Width 12.5 % (11.5-14.0); White Blood Count 13.3 x10^3/uL (4.0-10.5)
--- NOTE | 2021-10-03 23:33 | ERPHSYRPT ---
- History of Present Illness Time Seen by Provider: 10/03/21 22:36 Source: patient Exam Limitations: no limitations Patient Subjective Stated Complaint: pt states "I need help. I have been withdrawling from meth and fentanyl." Triage Nursing Assessment: pt ambulated into the er; pt is axo x4; c/o withdrawl; pt states she had relasped in april; pt states she spent 90 days for in patient treatment; pt is tearful, depressed; pt is diaphoretic; skin pink and moist; tachycardic; pt states that she last ingested meth yesterday; pt states that was sober from june 2020 to april 2021; pt states abd pain from withdrawl is 8/10; hypertensive Physician History: 31 years old female with history of anxiety, depression, drug abuse went through recovery program for 90 days but relapsed earlier this year with methamphetamine and fentanyl, last dose was yesterday. Patient reports she is very anxious and has not used any drugs today, feels palpitations, restless, generalized body aches, loose stool and occasional auditory/visual hallucination. Does report low self-esteem, ideas of hopelessness, helplessness but denies any suicidal ideations or plans. Denies any homicidal ideations. Patient states "I need help to get out of these drugs so that I can get some custody of my daughter". Denies any IV drug use recently. Also reports having unprotected sex with increased burning urination, increased frequency and concern for STDs. Severity of Symptoms-Max: moderate Severity of Symptoms-Current: moderate Context related to: daughter Associated Symptoms: anxiety, depressed, frustrated, impaired concentration, i ngestion Previous symptoms: same symptoms as today Allergies/Adverse Reactions: chlordiazepoxide HCl [From Librium] Allergy (Verified 07/19/21 13:07) levetiracetam [From Keppra] Allergy (Verified 07/19/21 13:07) Home Medications: Gabapentin [Neurontin 300 mg] 300 mg PO DAILY 07/23/21 [History] Levothyroxine Sodium 50 mcg PO DAILY 10/04/21 [History] Venlafaxine HCl ER 75 mg [Effexor XR 75 MG] 150 mg PO DAILY 10/04/21 [History] buPROPion HCL [Bupropion HCl Sr] 150 mg PO DAILY 10/04/21 [History] Hx Tetanus, Diphtheria Vaccination/Date Given: Yes Hx Influenza Vaccination/Date Given: No Hx Pneumococcal Vaccination/Date Given: No Travel Risk - International Travel Have you traveled outside of the country in past 3 weeks: No - Coronavirus Screening Are you exhibiting any of the following symptoms?: No Close contact with a COVID-19 positive Pt in past 14-21 Days: No - Vaccine Status Have you recieved a Covid-19 vaccination: Yes [employer]: [employer] - Vaccination Dates Date of 2cond Vaccination (if applicable): dec - Past Medical History Pertinent Past Medical History: Yes Neurological History: Seizures ENT History: No Pertinent History Cardiac History: No Pertinent History Respiratory History: No Pertinent History Endocrine Medical History: No Pertinent History Musculoskeletal History: No Pertinent History GI Medical History: No Pertinent History History: No Pertinent History Psycho-Social History: Anxiety, Depression Female Reproductive Disorders: No Pertinent History Other Medical History: Hep C positive, treatment in 2011 and at last lab draw was dormant, states she had one seizure in 2010, meth, klonopin, and alcohol abuse, overdose in June - Past Surgical History Past Surgical History: Yes Neuro Surgical History: No Pertinent History Cardiac: No Pertinent History Respiratory: No Pertinent History Gastrointestinal: No Pertinent History Genitourinary: No Pertinent History Musculoskeletal: Other Female Surgical History: Section Other Surgical History: states she had left hand surgery when she was injured in the past washing dishes noted, pt had abortionin January 2012 - Social History Smoking Status: Current every day smoker How long have you smoked: 14 years Exposure to second hand smoke: No Alcohol Use: Socially Drug Use: methamphetamines, other Patient Lives Alone: Yes Significant Family History: no pertinent family hx - Female History Hx Now: No - Review of Systems Constitutional: Chills, Fatigue Eyes: No Symptoms Ears, Nose, & Throat: Nose Congestion Respiratory: No Symptoms Cardiac: Palpitations Abdominal/Gastrointestinal: Abdominal Pain, Diarrhea Genitourinary Symptoms: Dysuria, Frequency Musculoskeletal: Myalgias Skin: No Symptoms Neurological: Dizziness Psychological: Drug Abuse, Anxiety, Depression, Hallucinations Endocrine: No Symptoms Hematologic/Lymphatic: No Symptoms Immunological/Allergic: No Symptoms - Nursing Vital Signs Nursing Vital Signs: Initial Vital Signs Temperature 97.1 F 10/03/21 22:57 Pulse Rate 105 H 10/03/21 22:57 Blood Pressure 153/98 10/03/21 22:57 O2 Sat by Pulse Oximetry 98 10/03/21 22:57 Pain Scale Pain Intensity 0 - Physical Exam General Appearance: no apparent distress, alert, anxiety Eyes, Ears, Nose, Throat Exam: normal ENT inspection Neck Exam: normal inspection, non-tender, supple, full range of motion Respiratory Exam: normal breath sounds, lungs clear Cardiovascular Exam: normal heart sounds, tachycardia Gastrointestinal/Abdominal Exam: soft, normal bowel sounds, No tenderness Extremities Exam: normal inspection, normal range of motion Current Suicidality: denies suicide plan Neurological Exam: 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, 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, No normal mood/affect Appearance: appropriate appearance, appropriate insight, neat, no memory imp airment Behavior/Eye Contact/Speech: alert & cooperative, good eye contact, decreased rate of speech Thoughts/Hallucinations: normal thought pattern, no apparent hallucination Skin Exam: normal color SpO2 Interpretation: normal SpO2: 98 O2 Delivery: Room Air Ordered Tests: Active Orders 24 hr Category Date Time Status IV Insertion STAT Care 10/03/21 23:32 Active CBC W DIFF Stat Lab 10/03/21 23:17 Completed CMP Stat Lab 10/03/21 23:17 Completed ETHYL ALCOHOL Stat Lab 10/03/21 23:17 Completed FLU A/B + COVID ANTIGEN Stat Lab 10/04/21 02:00 Completed HCG,QUALITATIVE URINE Stat Lab 10/03/21 23:20 Completed Manual Differential NC Stat Lab 10/03/21 23:17 Completed SALICYLATE Stat Lab 10/03/21 23:17 Completed UA W/RFX CULTURE Stat Lab 10/03/21 23:33 Completed Urine Triage Profile Stat Lab 10/03/21 23:20 Completed Medication Summary Discontinued Medications Generic Name Dose Route Start Last Admin Trade Name Kailee PRN Reason Stop Dose Admin Azithromycin 1,000 mg 10/03/21 23:34 10/03/21 23:51 Azithromycin 250 Mg Tablet PO 10/03/21 23:35 1,000 mg STAT ONE Administration Azithromycin Confirm 10/03/21 23:50 Azithromycin 250 Mg Tablet Administered 10/03/21 23:51 Dose 1,000 mg .ROUTE .STK-MED ONE Ceftriaxone Sodium 500 mg 10/03/21 23:34 10/03/21 23:51 Ceftriaxone Sodium 1000 Mg Inj Vial IM 10/03/21 23:35 500 mg STAT ONE Administration Ceftriaxone Sodium Confirm 10/03/21 23:50 Ceftriaxone Sodium 1000 Mg Inj Vial Administered 10/03/21 23:51 Dose 1,000 mg .ROUTE .STK-MED ONE Clonidine 0.1 mg 10/03/21 23:18 10/03/21 23:37 Clonidine Hcl 0.1 Mg Tablet PO 10/03/21 23:19 0.1 mg STAT ONE Administration Clonidine Confirm 10/03/21 23:35 Clonidine Hcl 0.1 Mg Tablet Administered 10/03/21 23:36 Dose 0.1 mg .ROUTE .STK-MED ONE Diphenhydramine HCl 50 mg 10/03/21 23:18 10/03/21 23:37 Diphenhydramine Hcl 50 Mg/Ml Vial IV 10/03/21 23:19 50 mg STAT ONE Administration Diphenhydramine HCl Confirm 10/03/21 23:35 Diphenhydramine Hcl 50 Mg/Ml Vial Administered 10/03/21 23:36 Dose 50 mg .ROUTE .STK-MED ONE Sodium Chloride 1,000 mls @ 999 mls/hr 10/03/21 23:17 10/04/21 01:38 Sodium Chloride 0.9% 1000 Ml IV 10/04/21 00:17 Infused .Q1H1M STA Infusion Sodium Chloride Confirm 10/03/21 23:35 Sodium Chloride 0.9% 1000 Ml Administered 10/03/21 23:36 Dose 1,000 mls @ ud .ROUTE .STK-MED ONE Ondansetron HCl 4 mg 10/03/21 23:18 10/03/21 23:37 Ondansetron Hcl 4 Mg/2 Ml Vial IV 10/03/21 23:19 4 mg STAT ONE Administration Ondansetron HCl Confirm 10/03/21 23:35 Ondansetron Hcl 4 Mg/2 Ml Vial Administered 10/03/21 23:36 Dose 4 mg .ROUTE .STK-MED ONE Lab/Rad Data: Laboratory Result Diagrams 10/03/21 23:17 10/03/21 23:17 Laboratory Results 10/04/21 10/03/21 10/03/21 Range/Units 02:00 23:43 23:33 WBC (4.0-10.5) x10^3/uL RBC (4.1-5.4) x10^6/uL Hgb (12.0-16.0) g/dL Hct (35-47) % MCV (78-100) fL MCH (26-32) pg MCHC (32-36) g/dL RDW (11.5-14.0) % Plt Count (150-450) x10^3/uL MPV (7.5-11.0) fL Segmented Neutrophils (36.0-66.0) % Lymphocytes (Manual) (24-44) % Monocytes (Manual) (0.0-12.0) % Eosinophils (Manual) (0.00-3.0) % Platelet Estimate (NORMAL) RBC Morphology Sodium (137-145) mmol/L Potassium (3.5-5.1) mmol/L Chloride (98-107) mmol/L Carbon Dioxide (22-30) mmol/L Anion Gap (5-15) MEQ/L BUN (7-17) mg/dL Creatinine (0.52-1.04) mg/dL Estimated GFR ML/MIN Glucose (74-106) mg/dL Calcium (8.4-10.2) mg/dL Total Bilirubin (0.2-1.3) mg/dL AST (14-36) U/L ALT (0-35) U/L Alkaline Phosphatase (38-126) U/L Serum Total Protein (6.3-8.2) g/dL Albumin (3.5-5.0) g/dL Urinalys Dipstick Clnc MAIN LAB Urine Color YELLOW (YELLOW) Urine Appearance CLEAR (CLEAR) Urine pH 6.5 (5-6) Ur Specific [place] 1.025 (1.005-1.025) POC Urine Protein Conf NEGATIVE (Negative) Urine Ketones NEGATIVE (NEGATIVE) Urine Nitrite NEGATIVE (NEGATIVE) Urine Bilirubin NEGATIVE (NEGATIVE) Urine Urobilinogen 0.2 (0-1) mg/dL Urine Leukocytes NEGATIVE (NEGATIVE) Urine WBC (Auto) 0-2 (0-5) /HPF Urine RBC (Auto) 0-2 (0-2) /HPF U Epithel Cells (Auto) RARE (FEW) /HPF Urine Bacteria (Auto) NONE (NEGATIVE) /HPF Urine RBC NEGATIVE (0-5) Mandeep/ul Urine Mucus (Auto) SLIGHT (NEGATIVE) /HPF Ur Culture Indicated? NO Urine Glucose NEGATIVE (NEGATIVE) mg/dL Urine HCG, Qual (Negative) Salicylates (2-20) mg/dL Urine Opiates Level (NEGATIVE) Ur Methadone (NEGATIVE) Urine Barbiturates (NEGATIVE) Ur Phencyclidine (PCP) (NEGATIVE) Urine Amphetamine (NEGATIVE) U Benzodiazepine Level (NEGATIVE) Urine Cocaine (NEGATIVE) Urine Marijuana (THC) (NEGATIVE) Ethyl Alcohol (0-10) mg/dL Chlamydia DNA Probe NOT DETECTED (NEGATIVE) Influenza Type A Ag NEGATIVE (NEGATIVE) Influenza Type B Ag NEGATIVE (NEGATIVE) N.gonorrhoeae DNA Probe NOT DETECTED (NEGATIVE) SARS-CoV-2 Antigen NEGATIVE (NEGATIVE) 10/03/21 10/03/21 10/03/21 Range/Units 23:20 23:20 23:17 WBC (4.0-10.5) x10^3/uL RBC (4.1-5.4) x10^6/uL Hgb (12.0-16.0) g/dL Hct (35-47) % MCV (78-100) fL MCH (26-32) pg MCHC (32-36) g/dL RDW (11.5-14.0) % Plt Count (150-450) x10^3/uL MPV (7.5-11.0) fL Segmented Neutrophils (36.0-66.0) % Lymphocytes (Manual) (24-44) % Monocytes (Manual) (0.0-12.0) % Eosinophils (Manual) (0.00-3.0) % Platelet Estimate (NORMAL) RBC Morphology Sodium 140 (137-145) mmol/L Potassium 3.8 (3.5-5.1) mmol/L Chloride 105 (98-107) mmol/L Carbon Dioxide 22 (22-30) mmol/L Anion Gap 16.6 H (5-15) MEQ/L BUN 15 (7-17) mg/dL Creatinine 0.94 (0.52-1.04) mg/dL Estimated GFR > 60.0 ML/MIN Glucose 101 (74-106) mg/dL Calcium 9.5 (8.4-10.2) mg/dL Total Bilirubin 0.30 (0.2-1.3) mg/dL AST 24 (14-36) U/L ALT 18 (0-35) U/L Alkaline Phosphatase 112 (38-126) U/L Serum Total Protein 7.1 (6.3-8.2) g/dL Albumin 4.3 (3.5-5.0) g/dL Urinalys Dipstick Clnc Urine Color (YELLOW) Urine Appearance (CLEAR) Urine pH (5-6) Ur Specific [place] (1.005-1.025) POC Urine Protein Conf (Negative) Urine Ketones (NEGATIVE) Urine Nitrite (NEGATIVE) Urine Bilirubin (NEGATIVE) Urine Urobilinogen (0-1) mg/dL Urine Leukocytes (NEGATIVE) Urine WBC (Auto) (0-5) /HPF Urine RBC (Auto) (0-2) /HPF U Epithel Cells (Auto) (FEW) /HPF Urine Bacteria (Auto) (NEGATIVE) /HPF Urine RBC (0-5) Mandeep/ul Urine Mucus (Auto) (NEGATIVE) /HPF Ur Culture Indicated? Urine Glucose (NEGATIVE) mg/dL Urine HCG, Qual NEGATIVE (Negative) Salicylates < 1.0 L (2-20) mg/dL Urine Opiates Level POSITIVE (NEGATIVE) Ur Methadone NEGATIVE (NEGATIVE) Urine Barbiturates NEGATIVE (NEGATIVE) Ur Phencyclidine (PCP) NEGATIVE (NEGATIVE) Urine Amphetamine POSITIVE (NEGATIVE) U Benzodiazepine Level POSITIVE (NEGATIVE) Urine Cocaine NEGATIVE (NEGATIVE) Urine Marijuana (THC) NEGATIVE (NEGATIVE) Ethyl Alcohol 16 H (0-10) mg/dL Chlamydia DNA Probe (NEGATIVE) Influenza Type A Ag (NEGATIVE) Influenza Type B Ag (NEGATIVE) N.gonorrhoeae DNA Probe (NEGATIVE) SARS-CoV-2 Antigen (NEGATIVE) 10/03/21 Range/Units 23:17 WBC 13.3 H (4.0-10.5) x10^3/uL RBC 4.80 (4.1-5.4) x10^6/uL Hgb 14.3 (12.0-16.0) g/dL Hct 42.3 (35-47) % MCV 88.1 (78-100) fL MCH 29.8 (26-32) pg MCHC 33.8 (32-36) g/dL RDW 12.5 (11.5-14.0) % Plt Count 275 (150-450) x10^3/uL MPV 10.7 (7.5-11.0) fL Segmented Neutrophils 48 (36.0-66.0) % Lymphocytes (Manual) 49 H (24-44) % Monocytes (Manual) 2 (0.0-12.0) % Eosinophils (Manual) 1 (0.00-3.0) % Platelet Estimate NORMAL (NORMAL) RBC Morphology NORMAL Sodium (137-145) mmol/L Potassium (3.5-5.1) mmol/L Chloride (98-107) mmol/L Carbon Dioxide (22-30) mmol/L Anion Gap (5-15) MEQ/L BUN (7-17) mg/dL Creatinine (0.52-1.04) mg/dL Estimated GFR ML/MIN Glucose (74-106) mg/dL Calcium (8.4-10.2) mg/dL Total Bilirubin (0.2-1.3) mg/dL AST (14-36) U/L ALT (0-35) U/L Alkaline Phosphatase (38-126) U/L Serum Total Protein (6.3-8.2) g/dL Albumin (3.5-5.0) g/dL Urinalys Dipstick Clnc Urine Color (YELLOW) Urine Appearance (CLEAR) Urine pH (5-6) Ur Specific [place] (1.005-1.025) POC Urine Protein Conf (Negative) Urine Ketones (NEGATIVE) Urine Nitrite (NEGATIVE) Urine Bilirubin (NEGATIVE) Urine Urobilinogen (0-1) mg/dL Urine Leukocytes (NEGATIVE) Urine WBC (Auto) (0-5) /HPF Urine RBC (Auto) (0-2) /HPF U Epithel Cells (Auto) (FEW) /HPF Urine Bacteria (Auto) (NEGATIVE) /HPF Urine RBC (0-5) Mandeep/ul Urine Mucus (Auto) (NEGATIVE) /HPF Ur Culture Indicated? Urine Glucose (NEGATIVE) mg/dL Urine HCG, Qual (Negative) Salicylates (2-20) mg/dL Urine Opiates Level (NEGATIVE) Ur Methadone (NEGATIVE) Urine Barbiturates (NEGATIVE) Ur Phencyclidine (PCP) (NEGATIVE) Urine Amphetamine (NEGATIVE) U Benzodiazepine Level (NEGATIVE) Urine Cocaine (NEGATIVE) Urine Marijuana (THC) (NEGATIVE) Ethyl Alcohol (0-10) mg/dL Chlamydia DNA Probe (NEGATIVE) Influenza Type A Ag (NEGATIVE) Influenza Type B Ag (NEGATIVE) N.gonorrhoeae DNA Probe (NEGATIVE) SARS-CoV-2 Antigen (NEGATIVE) - Progress Progress: re-examined Progress Note: 10/04/21 05:09 31 years old is evaluated for anxiety depression with withdrawals from opiates/meth. She is given Benadryl/clonidine and fluids. On reevaluation feeling better. Urine tox screen positive for substance abuse but otherwise grossly unremarkable work-up. Patient was also concerned about STI and given antibiotics. She is medically cleared and patient is excepted at [facility] by Dr. Molina Discussed with Dr.: Other (Dr. Deshawn Lauren for sprain) Counseled pt/family regarding: lab results, diagnosis, need for follow-up - Departure Departure Disposition: Transfer Clinical Impression: Anxiety, Depression, Substance abuse Condition: Stable Critical Care Time: No Referrals: TERENCE NICHOLE [Primary Care Provider] - Follow up/PCP as directed
[2021-10-03] MEDS ORDERED: Zithromax 250 MG TABLET PO ONE (23:34)
[2021-10-03] MEDS ORDERED: Rocephin 1000 MG INJ IM ONE (23:34)
[2021-10-03] MEDS ORDERED: Zofran 4 MG/2 ML VIAL ONE (23:35)
[2021-10-03] MEDS ORDERED: Sodium Chloride 0.9% 1000 ML 1,000 ML ONE (23:35)
[2021-10-03] MEDS ORDERED: CLONIDINE 0.1 MG TABLET ONE (23:35)
[2021-10-03] MEDS ORDERED: BENADRYL 50 MG/ML ONE (23:35)
[2021-10-03 23:37] LABS: Epithelial Cells RARE /HPF (FEW); Mucus SLIGHT /HPF (NEGATIVE); RBC 0-2 /HPF (0-2); WBC 0-2 /HPF (0-5)
[2021-10-03 23:39] LABS: Appearance CLEAR (CLEAR); Bilirubin NEGATIVE (NEGATIVE); Glucose NEGATIVE (NEGATIVE); Ketones NEGATIVE (NEGATIVE); Nitrite NEGATIVE (NEGATIVE); Ph 6.5 (5-6); Protein,Urine Dip NEGATIVE (Negative); RBC NEGATIVE Ery/ul (0-5); Specific Gravity 1.025 (1.005-1.025); Urine Cultured Indicated? NO; Urobilinogen 0.2 mg/dL (0-1)
[2021-10-03 23:40] LABS: Dipstick done @ ? MAIN LAB
[2021-10-03 23:46] LABS: ALBUMIN 4.3 g/dL (3.5-5.0); ALKALINE PHOSPHATASE 112 U/L (38-126); ANION GAP 16.6 MEQ/L (5-15); BLOOD UREA NITROGEN 15 mg/dL (7-17); CHLORIDE 105 mmol/L (98-107); Calcium 9.5 mg/dL (8.4-10.2); Carbon Dioxide 22 mmol/L (22-30); Creatinine 1 0.94 mg/dL (0.52-1.04); EST GLOMERULAR FILTRATION RATE > 60.0 ML/MIN; ETHYL ALCOHOL 16 mg/dL (0-10); Glucose 101 mg/dL (74-106); Potassium 3.8 mmol/L (3.5-5.1); SALICYLATE < 1.0 mg/dL (2-20); SGOT/AST 24 U/L (14-36); SGPT/ALT 18 U/L (0-35); SODIUM 140 mmol/L (137-145); Total Protein 7.1 g/dL (6.3-8.2)
[2021-10-03 23:50] LABS: Barbiturate,Urine NEGATIVE (NEGATIVE); Benzodiazepine,Urine POSITIVE (NEGATIVE); Cocaine,Urine NEGATIVE (NEGATIVE); Methadone,Urine NEGATIVE (NEGATIVE); Opiate,Urine POSITIVE (NEGATIVE); PCP,Urine NEGATIVE (NEGATIVE); THC,Urine NEGATIVE (NEGATIVE)
[2021-10-03] MEDS ORDERED: Zithromax 250 MG TABLET ONE (23:50)
[2021-10-03] MEDS ORDERED: Rocephin 1000 MG INJ ONE (23:50)
[2021-10-04 00:30] LABS: Amphetamine,Urine POSITIVE (NEGATIVE)
[2021-10-04 01:27] LABS: CHLAMYDIA DNA NOT DETECTED (NEGATIVE); GC DNA Probe NOT DETECTED (NEGATIVE)
[2021-10-04 03:35] LABS: Eosinophil 1 % (0.00-3.0); Lymphocytes 49 % (24-44); Monocyte 2 % (0.0-12.0); Platelet Estimate NORMAL (NORMAL); Total Cells Counted 100
[2021-10-04 06:18] VITALS: BP 103/63; PULSE 77; O2SAT 97
== END 2021-10-04 06:10 ==
LOC: ED 22:30
DX: F41.9 Anxiety disorder, unspecified (principal); F32.A Depression, unspecified; F15.13 Other stimulant abuse with withdrawal; R00.2 Palpitations; M79.10 Myalgia, unspecified site; R19.7 Diarrhea, unspecified; R30.0 Dysuria; Z62.890 Parent-child estrangement NEC; Z72.51 High risk heterosexual behavior; Z72.0 Tobacco use; Z79.899 Other long term (current) drug therapy
CPT/HCPCS: 36000; 36415; 80053; 80307; 81015; 81025; 85025; 87428; 87491; 87591; 96360; 96372; 96374; 99285; G0480; J0696; J1200; J2405; A9270-GY

== ENCOUNTER 2022-01-11 06:57 | Emergency (ER) | payer BC, OTHER ==
[2022-01-11 07:09] VITALS: O2SAT 99
--- NOTE | 2022-01-11 07:17 | ERPHSYRPT ---
- History of Present Illness Time Seen by Provider: 01/11/22 07:05 Source: patient Exam Limitations: no limitations Patient Subjective Stated Complaint: Pt took a test a couple of days ago that was positive and today at 0600 she woke up with a lot of brown blood and it has now passed and the blood appears to be ending, pt has no pain, pt was having some pain yesterday in the back and lower abdomen Triage Nursing Assessment: Pt brought to the ER by EMS, zheng winchester, denies pain, states that the bleeding is stopping, has a 5 yr old at home, last year and then this , doesn't appear to be in any distress Physician History: This is a 31-year-old white female patient of Dr. Hernandez who presents with some vaginal discharge that is brown and bloody per her report. It occurred at 6:00 this morning. Patient took a test approximately 2 to 3 days ago and it was positive. Her last menstrual period was on 12/16/2021. There is a large amount of this type of vaginal discharge but it has since stopped. She has no abdominal pain or back pain. She did have some mild lower abdominal pain and back pain yesterday. Patient has a history of anxiety depression and drug abuse (methamphetamines and fentanyl). The last reported abuse was early October 2021. Patient denies shortness of breath. She denies dizziness. She denies chest pain. She is had no vomiting or diarrhea. Timing/Duration: today, resolved prior to arrival Activites at Onset: sleep Pain Radiation: none Severity of Pain-Max: none Severity of Pain-Current: none Modifying Factors: Improves With: nothing Associated Symptoms: vaginal discharge (Brown/bloody), No abdominal pain, No lower back pain Allergies/Adverse Reactions: chlordiazepoxide HCl [From Librium] Allergy (Verified 01/11/22 07:09) levetiracetam [From Keppra] Allergy (Verified 01/11/22 07:09) Home Medications: No Reportable Medications [No Reported Medications] 01/11/22 [History] Hx Tetanus, Diphtheria Vaccination/Date Given: Yes Hx Influenza Vaccination/Date Given: No Hx Pneumococcal Vaccination/Date Given: No Travel Risk - International Travel Have you traveled outside of the country in past 3 weeks: No - Coronavirus Screening Are you exhibiting any of the following symptoms?: No Close contact with a COVID-19 positive Pt in past 14-21 Days: No - Vaccine Status Have you recieved a Covid-19 vaccination: Yes Film Numberer: Pfizer - Vaccination Dates Date of 2cond Vaccination (if applicable): 2020 - Review of Systems Constitutional: No Symptoms Eyes: No Symptoms Ears, Nose, & Throat: No Symptoms Respiratory: No Symptoms Cardiac: No Symptoms Abdominal/Gastrointestinal: No Symptoms Genitourinary Symptoms: Vaginal Bleeding Musculoskeletal: No Symptoms Skin: No Symptoms Neurological: No Symptoms Psychological: No Symptoms Endocrine: No Symptoms Hematologic/Lymphatic: No Symptoms Immunological/Allergic: No Symptoms All Other Systems: Reviewed and Negative - Past Medical History Pertinent Past Medical History: Yes Neurological History: Seizures ENT History: No Pertinent History Cardiac History: No Pertinent History Respiratory History: No Pertinent History Endocrine Medical History: No Pertinent History Musculoskeletal History: No Pertinent History GI Medical History: No Pertinent History History: No Pertinent History Psycho-Social History: Anxiety, Depression Female Reproductive Disorders: No Pertinent History Other Medical History: Hep C positive, treatment in 2011 and at last lab draw was dormant, states she had one seizure in 2010, meth, klonopin, and alcohol abuse, overdose in June - Past Surgical History Past Surgical History: Yes Neuro Surgical History: No Pertinent History Cardiac: No Pertinent History Respiratory: No Pertinent History Gastrointestinal: No Pertinent History Genitourinary: No Pertinent History Musculoskeletal: Other Female Surgical History: Section Other Surgical History: states she had left hand surgery when she was injured in the past washing dishes noted, pt had abortionin January 2021 - Social History Smoking Status: Current every day smoker How long have you smoked: 14 years Exposure to second hand smoke: Yes Alcohol Use: Socially Drug Use: none Patient Lives Alone: Yes Significant Family History: no pertinent family hx - Female History Hx Last Menstrual Period: 12/16/2021 Hx Now: Yes - Nursing Vital Signs Nursing Vital Signs: Initial Vital Signs Temperature 97.5 F 01/11/22 06:58 Pulse Rate 81 01/11/22 06:58 Blood Pressure 119/80 01/11/22 06:58 O2 Sat by Pulse Oximetry 99 01/11/22 06:58 Pain Scale Pain Intensity 0 - Physical Exam General Appearance: no apparent distress, alert, anxiety Eye Exam: PERRL/EOMI, eyes nml inspection Ears, Nose, Throat Exam: normal ENT inspection, moist mucous membranes Neck Exam: normal inspection, non-tender, supple, full range of motion Respiratory Exam: normal breath sounds, lungs clear, airway intact, No chest tenderness, No respiratory distress Cardiovascular Exam: regular rate/rhythm, normal heart sounds, normal peripheral pulses Gastrointestinal/Abdomen Exam: soft, normal bowel sounds, No tenderness Pelvic Exam: not done Rectal Exam: not done Back Exam: normal inspection, normal range of motion, No CVA tenderness, No vertebral tenderness Extremity Exam: normal inspection, normal range of motion, pelvis stable Neurologic Exam: alert, oriented x 3, cooperative, camera technician II-XII nml as tested, normal mood/affect, nml cerebellar function, nml station & gait, sensation nml Skin Exam: normal color, warm, dry Lymphatic Exam: No adenopathy SpO2 Interpretation: normal SpO2: 99 O2 Delivery: Room Air - Course Nursing assessment & vital signs reviewed: Yes Ordered Tests: Active Orders 24 hr Category Date Time Status Clean Catch Urine Specimen STAT Care 01/11/22 07:26 Active IV Insertion STAT Care 01/11/22 07:17 Active CBC W DIFF Stat Lab 01/11/22 07:36 Completed CMP Stat Lab 01/11/22 07:36 Received HCG QUALITATIVE,SERUM Stat Lab 01/11/22 07:36 Completed HCG, Quantitative (Inhouse) Stat Lab 01/11/22 07:36 Received UA W/RFX CULTURE Stat Lab 01/11/22 07:20 Completed Urine Triage Profile Stat Lab 01/11/22 07:31 Completed Lab/Rad Data: Laboratory Result Diagrams 01/11/22 07:36 Laboratory Results 01/11/22 01/11/22 01/11/22 Range/Units 07:36 07:36 07:31 WBC 10.8 H (4.0-10.5) x10^3/uL RBC 4.56 (4.1-5.4) x10^6/uL Hgb 13.8 (12.0-16.0) g/dL Hct 42.2 (35-47) % MCV 92.5 (78-100) fL MCH 30.3 (26-32) pg MCHC 32.7 (32-36) g/dL RDW 12.7 (11.5-14.0) % Plt Count 218 (150-450) x10^3/uL MPV 10.0 (7.5-11.0) fL Gran % 61.3 (36.0-66.0) % Immature Gran % (Auto) 0.3 (0.00-0.4) % Nucleat RBC Rel Count 0.0 (0.00-0.1) % Eos # (Auto) 0.24 (0-0.5) x10^3/uL Immature Gran # (Auto) 0.03 (0.00-0.03) x10^3u/L Absolute Lymphs (auto) 2.97 (1.0-4.6) x10^3/uL Absolute Monos (auto) 0.85 (0.0-1.3) x10^3/uL Absolute Nucleated RBC 0.00 (0.00-0.01) x10^3u/L Lymphocytes % 27.6 (24.0-44.0) % Monocytes % 7.9 (0.0-12.0) % Eosinophils % 2.2 (0.00-5.0) % Basophils % 0.7 (0.0-0.4) % Absolute Granulocytes 6.59 (1.4-6.9) x10^3/uL Basophils # 0.08 (0-0.4) x10^3/uL Serum , Qual NEGATIVE (Negative) Urinalys Dipstick Clnc Urine Color (YELLOW) Urine Appearance (CLEAR) Urine pH (5-6) Ur Specific [place] (1.005-1.025) POC Urine Protein Conf (Negative) Urine Ketones (NEGATIVE) Urine Nitrite (NEGATIVE) Urine Bilirubin (NEGATIVE) Urine Urobilinogen (0-1) mg/dL Urine Leukocytes (NEGATIVE) Urine WBC (Auto) (0-5) /HPF Urine RBC (Auto) (0-2) /HPF U Epithel Cells (Auto) (FEW) /HPF Urine Bacteria (Auto) (NEGATIVE) /HPF Urine RBC (0-5) Mandeep/ul Calcium Oxalate Crystal (NEGATIVE) /HPF Urine Mucus (Auto) (NEGATIVE) /HPF Ur Culture Indicated? Urine Glucose (NEGATIVE) mg/dL Urine Opiates Level NEGATIVE (NEGATIVE) Ur Methadone NEGATIVE (NEGATIVE) Urine Barbiturates NEGATIVE (NEGATIVE) Ur Phencyclidine (PCP) NEGATIVE (NEGATIVE) Urine Amphetamine NEGATIVE (NEGATIVE) U Benzodiazepine Level NEGATIVE (NEGATIVE) Urine Cocaine NEGATIVE (NEGATIVE) Urine Marijuana (THC) NEGATIVE (NEGATIVE) 01/11/22 Range/Units 07:20 WBC (4.0-10.5) x10^3/uL RBC (4.1-5.4) x10^6/uL Hgb (12.0-16.0) g/dL Hct (35-47) % MCV (78-100) fL MCH (26-32) pg MCHC (32-36) g/dL RDW (11.5-14.0) % Plt Count (150-450) x10^3/uL MPV (7.5-11.0) fL Gran % (36.0-66.0) % Immature Gran % (Auto) (0.00-0.4) % Nucleat RBC Rel Count (0.00-0.1) % Eos # (Auto) (0-0.5) x10^3/uL Immature Gran # (Auto) (0.00-0.03) x10^3u/L Absolute Lymphs (auto) (1.0-4.6) x10^3/uL Absolute Monos (auto) (0.0-1.3) x10^3/uL Absolute Nucleated RBC (0.00-0.01) x10^3u/L Lymphocytes % (24.0-44.0) % Monocytes % (0.0-12.0) % Eosinophils % (0.00-5.0) % Basophils % (0.0-0.4) % Absolute Granulocytes (1.4-6.9) x10^3/uL Basophils # (0-0.4) x10^3/uL Serum , Qual (Negative) Urinalys Dipstick Clnc MAIN LAB Urine Color YELLOW (YELLOW) Urine Appearance CLEAR (CLEAR) Urine pH 6.0 (5-6) Ur Specific [place] >=1.030 (1.005-1.025) POC Urine Protein Conf NEGATIVE (Negative) Urine Ketones NEGATIVE (NEGATIVE) Urine Nitrite NEGATIVE (NEGATIVE) Urine Bilirubin NEGATIVE (NEGATIVE) Urine Urobilinogen 0.2 (0-1) mg/dL Urine Leukocytes NEGATIVE (NEGATIVE) Urine WBC (Auto) 0-2 (0-5) /HPF Urine RBC (Auto) NONE (0-2) /HPF U Epithel Cells (Auto) NONE (FEW) /HPF Urine Bacteria (Auto) NONE (NEGATIVE) /HPF Urine RBC TRACE-INTACT (0-5) Mandeep/ul Calcium Oxalate Crystal 26-50 (NEGATIVE) /HPF Urine Mucus (Auto) SLIGHT (NEGATIVE) /HPF Ur Culture Indicated? NO Urine Glucose NEGATIVE (NEGATIVE) mg/dL Urine Opiates Level (NEGATIVE) Ur Methadone (NEGATIVE) Urine Barbiturates (NEGATIVE) Ur Phencyclidine (PCP) (NEGATIVE) Urine Amphetamine (NEGATIVE) U Benzodiazepine Level (NEGATIVE) Urine Cocaine (NEGATIVE) Urine Marijuana (THC) (NEGATIVE) - Departure Departure Disposition: Home Clinical Impression: Vaginal bleeding Condition: Stable Critical Care Time: No Referrals: TERENCE HERNANDEZ [Primary Care Provider] - Follow up/PCP as directed Additional Instructions: Use Tylenol and ibuprofen for any fever pain control. Follow-up with your primary care physician or lift supervisor for further evaluation management. Drink plenty of fluids.
[2022-01-11 07:29] LABS: Absolute Neutrophil Ct (ANC) 6.59 x10^3/uL (1.4-6.9); Basophil (Absolute #) 0.08 x10^3/uL (0-0.4); Eosinophil % 2.2 % (0.00-5.0); Eosinophil (Absolute #) 0.24 x10^3/uL (0-0.5); Hematocrit 42.2 % (35-47); Hemoglobin 13.8 g/dL (12.0-16.0); Lymphocyte (Absolute #) 2.97 x10^3/uL (1.0-4.6); Lymphocytes % 27.6 % (24.0-44.0); Mean Cell Volume 92.5 fL (78-100); Mean Corpuscular Hemoglobin 30.3 pg (26-32); Mean Corpuscular Hgb Concent. 32.7 g/dL (32-36); Monocyte (Absolute #) 0.85 x10^3/uL (0.0-1.3); Monocytes % 7.9 % (0.0-12.0); Neutrophil % 61.3 % (36.0-66.0); Platelet Count 218 x10^3/uL (150-450); Red Blood Count 4.56 x10^6/uL (4.1-5.4); Red Cell Distribution Width 12.7 % (11.5-14.0); White Blood Count 10.8 x10^3/uL (4.0-10.5)
[2022-01-11 07:37] LABS: Appearance CLEAR (CLEAR); Bilirubin NEGATIVE (NEGATIVE); Glucose NEGATIVE (NEGATIVE); Ketones NEGATIVE (NEGATIVE); Specific Gravity >=1.030 (1.005-1.025)
[2022-01-11 07:38] LABS: Dipstick done @ ? MAIN LAB; Nitrite NEGATIVE (NEGATIVE); Protein,Urine Dip NEGATIVE (Negative); RBC TRACE-INTACT Ery/ul (0-5); Urobilinogen 0.2 mg/dL (0-1)
[2022-01-11 07:40] LABS: Calcium Oxalate Crystals 26-50 /HPF (NEGATIVE); Mucus SLIGHT /HPF (NEGATIVE); WBC 0-2 /HPF (0-5)
[2022-01-11 07:41] LABS: Urine Cultured Indicated? NO
[2022-01-11 07:53] LABS: Amphetamine,Urine NEGATIVE (NEGATIVE); Barbiturate,Urine NEGATIVE (NEGATIVE); Benzodiazepine,Urine NEGATIVE (NEGATIVE); Cocaine,Urine NEGATIVE (NEGATIVE); Methadone,Urine NEGATIVE (NEGATIVE); Opiate,Urine NEGATIVE (NEGATIVE); PCP,Urine NEGATIVE (NEGATIVE); THC,Urine NEGATIVE (NEGATIVE)
[2022-01-11 08:00] LABS: ALBUMIN 4.1 g/dL (3.5-5.0); ALKALINE PHOSPHATASE 95 U/L (38-126); ANION GAP 10.1 MEQ/L (5-15); BLOOD UREA NITROGEN 14 mg/dL (7-17); CHLORIDE 108 mmol/L (98-107); Calcium 8.8 mg/dL (8.4-10.2); Carbon Dioxide 24 mmol/L (22-30); Creatinine 1 0.71 mg/dL (0.52-1.04); EST GLOMERULAR FILTRATION RATE > 60.0 ML/MIN; Glucose 102 mg/dL (74-106); SGOT/AST 23 U/L (14-36); SGPT/ALT 25 U/L (0-35); SODIUM 137 mmol/L (137-145); Total Protein 6.9 g/dL (6.3-8.2)
[2022-01-11 08:31] VITALS: BP 125/74; PULSE 79
== END 2022-01-11 08:33 | disposition home or self-care (01) ==
LOC: ED 06:57
DX: N93.9 Abnormal uterine and vaginal bleeding, unspecified (principal); Z72.0 Tobacco use
CPT/HCPCS: 36000; 36415; 80053; 80307; 81015; 84702; 84703; 85025; 99283

== ENCOUNTER 2023-04-03 09:58 | Emergency (ER) | payer OTHER ==
[2023-04-03 10:16] VITALS: BP 143/88; PULSE 84; RESP 18; TEMP 98; O2SAT 95
--- NOTE | 2023-04-03 10:23 | ERPHSYRPT ---
- History of Present Illness Time Seen by Provider: 04/03/23 10:07 Source: patient Exam Limitations: no limitations Patient Subjective Stated Complaint: Patient here for someone to look at her surgical incisions. Patient states she had her gallbladder removed by Dr. Josefina blackwell at [facility] a few days ago. This morning, some of her steri-strips fell off. Patient thought they may need put back on and she doesn't have any at home. She wanted someone to look at her incision for her. Triage Nursing Assessment: Patient ambulated back to ER without difficulties. She is alert and oriented; anxious. Patient with 4 small incisions to abdomen. 3 of the 4 incisions still have steri strips intact to them. The most proximal incision does not have any strips left on it but this incision is well approximated, no drainage, no warmth. Physician History: 32-year-old female with laparoscopic cholecystectomy 2 days ago presented in the ER for incision wound check. Patient reports she had Steri-Strips on and somehow they fell off this morning. She is concerned about wound infection as she was told they will probably stay in for a week. She does not have any discharge. No increased pain or redness. No fever or chills reported. No nausea or vomiting. Allergies/Adverse Reactions: chlordiazepoxide HCl [From Librium] Allergy (Verified 04/03/23 10:05) levetiracetam [From Keppra] Allergy (Verified 04/03/23 10:05) Home Medications: Gabapentin [Neurontin ] 1 tab PO TID 12/30/22 [History] OLANZapine [Zyprexa] 5 mg PO DAILY 12/30/22 [History] Venlafaxine HCl ER 75 mg [Effexor XR 75 MG] 225 mg PO DAILY 12/30/22 [History] Hydrocodone/Acetaminophen [Hydrocodone-Acetamin 5-325 mg] 1 tab PO Q4H PRN PRN 04/03/23 [History] Hx Tetanus, Diphtheria Vaccination/Date Given: Yes Hx Influenza Vaccination/Date Given: No Hx Pneumococcal Vaccination/Date Given: No Immunizations Up to Date: Yes Travel Risk - International Travel Have you traveled outside of the country in past 3 weeks: No - Coronavirus Screening Are you exhibiting any of the following symptoms?: No Close contact with a COVID-19 positive Pt in past 14-21 Days: No - Vaccine Status Have you recieved a Covid-19 vaccination: Yes Upper [employer]immer: [facility] - Vaccination Dates Date of 2cond Vaccination (if applicable): 2020 - Review of Systems Constitutional: No Symptoms Ears, Nose, & Throat: No Symptoms Respiratory: No Symptoms Cardiac: No Symptoms Abdominal/Gastrointestinal: No Symptoms Genitourinary Symptoms: No Symptoms Musculoskeletal: No Symptoms Skin: No Symptoms Neurological: No Symptoms Endocrine: No Symptoms Hematologic/Lymphatic: No Symptoms - Past Medical History Pertinent Past Medical History: Yes Neurological History: No Pertinent History ENT History: No Pertinent History Cardiac History: No Pertinent History Respiratory History: No Pertinent History Endocrine Medical History: No Pertinent History Musculoskeletal History: No Pertinent History GI Medical History: No Pertinent History History: No Pertinent History Psycho-Social History: Anxiety, Depression Female Reproductive Disorders: No Pertinent History Other Medical History: HAS INTERMITTENT VERTIGO OF UNKNOWN ETIOLOGY. SHE DOES HAVE AN ENLARGEMENT IN HER PITITUARY GLAND; - Past Surgical History Past Surgical History: Yes Neuro Surgical History: No Pertinent History Cardiac: No Pertinent History Respiratory: No Pertinent History Gastrointestinal: No Pertinent History Genitourinary: No Pertinent History Musculoskeletal: Other Female Surgical History: Section Other Surgical History: states she had left hand surgery, January 2021 - Social History Smoking Status: Current every day smoker How long have you smoked: 14 years Exposure to second hand smoke: Yes Alcohol Use: Socially Drug Use: none Patient Lives Alone: Yes Significant Family History: no pertinent family hx - Female History Hx Now: No - Nursing Vital Signs Nursing Vital Signs: Initial Vital Signs Temperature 98 F 04/03/23 10:07 Pulse Rate 84 04/03/23 10:07 Respiratory Rate 18 04/03/23 10:07 Blood Pressure 143/88 04/03/23 10:07 O2 Sat by Pulse Oximetry 95 04/03/23 10:07 Pain Scale Pain Intensity 0 - Physical Exam General Appearance: no apparent distress, alert, anxiety Eye Exam: PERRL/EOMI Ears, Nose, Throat Exam: normal ENT inspection Neck Exam: normal inspection, full range of motion Respiratory Exam: normal breath sounds, lungs clear Cardiovascular Exam: regular rate/rhythm, normal heart sounds Gastrointestinal/Abdomen Exam: soft, normal bowel sounds, other (Port incisions well-healing. Steri-Strips applied on all except epigastric site. Steri-Strips reapplied per patient request), No guarding Extremity Exam: normal inspection, normal range of motion Neurologic Exam: alert, oriented x 3, cooperative Skin Exam: normal color SpO2 Interpretation: normal SpO2: 95 O2 Delivery: Room Air - Progress Progress: improved Progress Note: 04/03/23 10:20 32-year-old female with laparoscopic cholecystectomy 2 days ago presented in the ER for incision wound check. Patient reports she had Steri-Strips on and somehow they fell off this morning. She is concerned about wound infection as she was told they will probably stay in for a week. She does not have any discharge. No increased pain or redness. No fever or chills reported. No nausea or vomiting. Epigastric incision well-healing. Minimal tenderness around. No erythema around. No discharge. Edges close to each other. As per patient request Steri-Strips are reapplied. Patient is counseled that she was very anxious. Outpatient follow-up per schedule. Discussed signs symptoms of worsening needing return to ER which she seems understanding. Counseled pt/family regarding: diagnosis, need for follow-up Medical Desision Making - Diagnostic Testing Diagnostic test were ordered, analyzed, and reviewed by me: No - Departure Departure Disposition: Home Clinical Impression: Encounter for post surgical wound check Condition: Stable Critical Care Time: No Referrals: RAFI HECTOR NP [Primary Care Provider] - Follow up with PCP 1 day JOHANNA ZHOU [COURTESY STAFF] - Follow up/PCP as directed (As scheduled) Instructions: Wound Care (DC) Additional Instructions: Follow-up with primary care and primary surgeon as scheduled.Return to ER for intractable pain, discharge, swelling redness around incisions, intractable vomiting etc.
== END 2023-04-03 10:35 | disposition home or self-care (01) ==
LOC: ED 09:58
DX: Z48.01 Encounter for change or removal of surgical wound dressing (principal); Z79.891 Long term (current) use of opiate analgesic; Z79.899 Other long term (current) drug therapy; Z72.0 Tobacco use
CPT/HCPCS: 99281

== ENCOUNTER 2023-04-29 11:20 | Emergency (ER) | payer OTHER ==
[2023-04-29] MEDS ORDERED: Zofran 4 MG/2 ML VIAL IV ONE (11:38)
[2023-04-29] MEDS ORDERED: Sodium Chloride 0.9% 1000 ML 1,000 ML IV STA (11:38)
[2023-04-29 11:43] VITALS: TEMP 98; O2SAT 97
[2023-04-29 12:02] LABS: Absolute Neutrophil Ct (ANC) 7.28 x10^3/uL (1.4-6.9); BASOPHIL % 0.6 % (0.0-0.4); Basophil (Absolute #) 0.07 x10^3/uL (0-0.4); Eosinophil % 2.1 % (0.00-5.0); Eosinophil (Absolute #) 0.24 x10^3/uL (0-0.5); Hematocrit 43.4 % (35-47); Hemoglobin 14.4 g/dL (12.0-16.0); IMMATURE GRAN # 0.02 x10^3u/L (0.00-0.03); IMMATURE GRAN % 0.2 % (0.00-0.4); Lymphocyte (Absolute #) 3.12 x10^3/uL (1.0-4.6); Lymphocytes % 27.6 % (24.0-44.0); Mean Cell Volume 89.1 fL (78-100); Mean Corpuscular Hemoglobin 29.6 pg (26-32); Mean Corpuscular Hgb Concent. 33.2 g/dL (32-36); Mean Platelet Volume 9.9 fL (7.5-11.0); Monocyte (Absolute #) 0.59 x10^3/uL (0.0-1.3); Monocytes % 5.2 % (0.0-12.0); Neutrophil % 64.3 % (36.0-66.0); Platelet Count 242 x10^3/uL (150-450); Red Blood Count 4.87 x10^6/uL (4.1-5.4); Red Cell Distribution Width 12.4 % (11.5-14.0); White Blood Count 11.3 x10^3/uL (4.0-10.5)
[2023-04-29 12:08] LABS: HCG URINE TEST NEGATIVE (NEGATIVE)
[2023-04-29 12:12] LABS: Appearance Clear (Clear); Bacteria Rare /HPF (None Seen); Bilirubin Negative (Negative); Blood Negative (Negative); Epithelial Cells Few /HPF (None Seen); Glucose, Urine Negative (Negative); Hyaline Casts NONE SEEN /LPF (0-2); Ketones Negative (Negative); Leukocyte Esterase Negative (Negative); Nitrite Negative (Negative); Protein,Urine Dip Negative (Negative); RBC 0-2 /HPF (0-5); Specific Gravity 1.015 (1.005-1.030); Urobilinogen 0.2 mg/dL (0.2)
[2023-04-29 12:17] LABS: ADD URINE CULTURE? NO (NO)
[2023-04-29 12:21] LABS: ALBUMIN 4.7 g/dL (3.5-5.0); ANION GAP 14.1 MEQ/L (5-15); BILIRUBIN,TOTAL 0.9 mg/dL (0.2-1.3); Calcium 9.7 mg/dL (8.4-10.2); Creatinine 1 0.7 mg/dL (0.52-1.04); EST GLOMERULAR FILTRATION RATE 116.3 ML/MIN; Potassium 4.5 mmol/L (3.5-5.1); Total Protein 8.2 g/dL (6.3-8.2)
[2023-04-29] MEDS ORDERED: Sodium Chloride 0.9% 1000 ML 1,000 ML ONE (12:21)
[2023-04-29] MEDS ORDERED: Zofran 4 MG/2 ML VIAL ONE (12:21)
--- NOTE | 2023-04-29 12:21 | XRAY ---
Indication: Vomiting. Diarrhea. Comparison: Chest exam March 18, 2021 2 view abdomen nonacute and nonobstructed with cholecystectomy. Solid organs unremarkable. Osseous structures intact with minimal double curvature scoliosis. Single frontal chest again demonstrates normal heart and lungs with incidental right apical calcified granuloma. Bony thorax intact. Impression: Nonacute nonobstructed abdomen. Continued normal 1 view chest.
[2023-04-29 12:38] LABS: INFLUENZA A NEGATIVE (NEGATIVE); INFLUENZA B NEGATIVE (NEGATIVE); RESPIRATORY SYNCTIAL VIRUS NEGATIVE (NEGATIVE); SARS-CoV-2 Xpert Express NEGATIVE (NEGATIVE)
--- NOTE | 2023-04-29 12:55 | ERPHSYRPT ---
- History of Present Illness Time Seen by Provider: 04/29/23 11:25 Historian: patient Exam Limitations: no limitations Patient Subjective Stated Complaint: N/V Triage Nursing Assessment: Patient ambulated back to ED and transferred self to bed. Patient A+O X 3. Patient's skin pink, warm dry. Patient states she started Naloxone and took one dose 3 days ago and started having dizziness, N/V. Patient denies pain or discomfort. Patient also complains of diarrhea. Physician History: The patient presents with nausea vomiting. She denies any severe diarrhea. She is just not felt well. She feels a little lightheaded. She has had vague viral symptoms with some malaise and bodyaches. The patient was given a dose of naltrexone for binge eating. She denies any history of narcotic abuse.She started having vomiting shortly thereafter. But she is also had viral symptoms. Timing/Duration: day(s) (3) Allergies/Adverse Reactions: chlordiazepoxide HCl [From Librium] Allergy (Verified 04/29/23 11:38) levetiracetam [From Keppra] Allergy (Verified 04/29/23 11:38) Home Medications: Gabapentin [Neurontin ] 1 tab PO TID 12/30/22 [History] OLANZapine [Zyprexa] 5 mg PO DAILY 12/30/22 [History] Venlafaxine HCl ER 75 mg [Effexor XR 75 MG] 225 mg PO DAILY 12/30/22 [History] Hydrocodone/Acetaminophen [Hydrocodone-Acetamin 5-325 mg] 1 tab PO Q4H PRN PRN 04/03/23 [History] Hx Tetanus, Diphtheria Vaccination/Date Given: Yes Hx Influenza Vaccination/Date Given: No Hx Pneumococcal Vaccination/Date Given: No Immunizations Up to Date: Yes Travel Risk - International Travel Have you traveled outside of the country in past 3 weeks: No - Coronavirus Screening Are you exhibiting any of the following symptoms?: No Close contact with a COVID-19 positive Pt in past 14-21 Days: No - Vaccine Status Have you recieved a Covid-19 vaccination: Yes [employer] 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: [email or web address] - Vaccination Dates Date of 2cond Vaccination (if applicable): 2020 - Review of Systems Constitutional: No Fever, No Chills Eyes: No Symptoms Ears, Nose, & Throat: No Symptoms Respiratory: No Cough, No Dyspnea Cardiac: No Chest Pain, No Edema, No Syncope Abdominal/Gastrointestinal: Nausea, Vomiting Genitourinary Symptoms: No Dysuria Musculoskeletal: No Back Pain, No Neck Pain Skin: No Rash Neurological: No Dizziness, No Focal Weakness, No Sensory Changes Psychological: No Symptoms Endocrine: No Symptoms All Other Systems: Reviewed and Negative - Past Medical History Pertinent Past Medical History: Yes Neurological History: No Pertinent History ENT History: No Pertinent History Cardiac History: No Pertinent History Respiratory History: No Pertinent History Endocrine Medical History: No Pertinent History Musculoskeletal History: No Pertinent History GI Medical History: No Pertinent History History: No Pertinent History Psycho-Social History: Anxiety, Depression Female Reproductive Disorders: No Pertinent History Other Medical History: HAS INTERMITTENT VERTIGO OF UNKNOWN ETIOLOGY. SHE DOES HAVE AN ENLARGEMENT IN HER PITITUARY GLAND; - Past Surgical History Past Surgical History: Yes Neuro Surgical History: No Pertinent History Cardiac: No Pertinent History Respiratory: No Pertinent History Gastrointestinal: Cholecystectomy Genitourinary: No Pertinent History Musculoskeletal: Other Female Surgical History: Section Other Surgical History: states she had left hand surgery, January 2021 - Social History Smoking Status: Current every day smoker How long have you smoked: 14 years Exposure to second hand smoke: Yes Alcohol Use: Socially Drug Use: none Patient Lives Alone: Yes Significant Family History: no pertinent family hx - Female History Hx Last Menstrual Period: 2 weeks ago Hx Now: No - Nursing Vital Signs Nursing Vital Signs: Initial Vital Signs Temperature 98.0 F 04/29/23 11:38 Pulse Rate 87 04/29/23 11:38 Respiratory Rate 18 04/29/23 11:38 Blood Pressure 130/112 04/29/23 11:38 O2 Sat by Pulse Oximetry 97 04/29/23 11:38 Pain Scale Pain Intensity 0 - Physical Exam General Appearance: no apparent distress, alert Eye Exam: PERRL/EOMI, eyes nml inspection Ears, Nose, Throat Exam: normal ENT inspection, pharynx normal, moist mucous membranes Neck Exam: normal inspection, non-tender, supple, full range of motion Respiratory Exam: normal breath sounds, lungs clear, No respiratory distress Cardiovascular Exam: regular rate/rhythm, normal heart sounds Gastrointestinal/Abdomen Exam: soft, No tenderness, No mass Back Exam: normal inspection, normal range of motion, No CVA tenderness, No vertebral tenderness Extremity Exam: normal inspection, normal range of motion, pelvis stable Neurologic Exam: alert, oriented x 3, cooperative, normal mood/affect, nml cerebellar function, sensation nml, No motor deficits Skin Exam: normal color, warm, dry SpO2: 97 - Course Nursing assessment & vital signs reviewed: Yes Ordered Tests: Active Orders 24 hr Category Date Time Status IV Insertion STAT Care 04/29/23 11:38 Active OBSTR/ACUTE ABDOMEN SERIES Stat Exams 04/29/23 11:39 Completed CBC W DIFF Stat Lab 04/29/23 11:38 Completed CMP Stat Lab 04/29/23 Completed HCG QUALITATIVE, URINE Stat Lab 04/29/23 11:43 Completed LIPASE Stat Lab 04/29/23 Completed Lactic Acid Stat Lab 04/29/23 11:45 Completed UA W/RFX UR CULTURE Stat Lab 04/29/23 11:43 Completed Medication Summary Discontinued Medications Generic Name Dose Route Start Last Admin Trade Name Freq PRN Reason Stop Dose Admin Droperidol 1.25 mg 04/29/23 13:07 04/29/23 13:21 Droperidol 5 Mg/2 Ml Vial IV 04/29/23 13:08 1.25 mg STAT ONE Administration Droperidol Confirm 04/29/23 13:19 Droperidol 5 Mg/2 Ml Vial Administered 04/29/23 13:20 Dose 5 mg .ROUTE .STK-MED ONE Sodium Chloride 1,000 mls @ 999 mls/hr 04/29/23 11:38 04/29/23 13:27 Sodium Chloride 0.9% 1000 Ml IV 04/29/23 12:38 Infused .Q1H1M STA Infusion Sodium Chloride Confirm 04/29/23 12:21 Sodium Chloride 0.9% 1000 Ml Administered 04/29/23 12:22 Dose 1,000 mls @ ud .ROUTE .STK-MED ONE Ondansetron HCl 4 mg 04/29/23 11:38 04/29/23 12:25 Ondansetron Hcl 4 Mg/2 Ml Vial IV 04/29/23 11:39 4 mg STAT ONE Administration Ondansetron HCl Confirm 04/29/23 12:21 Ondansetron Hcl 4 Mg/2 Ml Vial Administered 04/29/23 12:22 Dose 4 mg .ROUTE .STK-MED ONE Lab/Rad Data: Laboratory Result Diagrams 04/29/23 11:38 04/29/23 Unknown Laboratory Results 04/29/23 04/29/23 04/29/23 Range/Units Unknown Unknown 11:45 WBC (4.0-10.5) x10^3/uL RBC (4.1-5.4) x10^6/uL Hgb (12.0-16.0) g/dL Hct (35-47) % MCV (78-100) fL MCH (26-32) pg MCHC (32-36) g/dL RDW (11.5-14.0) % Plt Count (150-450) x10^3/uL MPV (7.5-11.0) fL Gran % (36.0-66.0) % Immature Gran % (Auto) (0.00-0.4) % Nucleat RBC Rel Count (0.00-0.1) % Eos # (Auto) (0-0.5) x10^3/uL Immature Gran # (Auto) (0.00-0.03) x10^3u/L Absolute Lymphs (auto) (1.0-4.6) x10^3/uL Absolute Monos (auto) (0.0-1.3) x10^3/uL Absolute Nucleated RBC (0.00-0.01) x10^3u/L Lymphocytes % (24.0-44.0) % Monocytes % (0.0-12.0) % Eosinophils % (0.00-5.0) % Basophils % (0.0-0.4) % Absolute Granulocytes (1.4-6.9) x10^3/uL Basophils # (0-0.4) x10^3/uL Sodium 136 L (137-145) mmol/L Potassium 4.5 (3.5-5.1) mmol/L Chloride 107 (98-107) mmol/L Carbon Dioxide 20 L (22-30) mmol/L Anion Gap 14.1 (5-15) MEQ/L BUN 10 (7-17) mg/dL Creatinine 0.70 (0.52-1.04) mg/dL Estimated GFR 116.3 ML/MIN Glucose 106 (74-106) mg/dL Lactic Acid 1.0 (0.4-2.0) Calcium 9.7 (8.4-10.2) mg/dL Total Bilirubin 0.90 (0.2-1.3) mg/dL AST 47 H (14-36) U/L ALT 55 H (0-35) U/L Alkaline Phosphatase 110 (38-126) U/L Serum Total Protein 8.2 (6.3-8.2) g/dL Albumin 4.7 (3.5-5.0) g/dL Lipase 23 (23-300) U/L Urine Color (Yellow) Urine Appearance (Clear) Urine pH (4.6-8.0) Ur Specific [place] (1.005-1.030) Urine Protein (Negative) Urine Glucose (UA) (Negative) mg/dL Urine Ketones (Negative) Urine Blood (Negative) Urine Nitrite (Negative) Urine Bilirubin (Negative) Urine Urobilinogen (0.2) mg/dL Ur Leukocyte Esterase (Negative) U Hyaline Cast (Auto) (0-2) /LPF Urine Microscopic RBC (0-5) /HPF Urine Microscopic WBC (0-5) /HPF Ur Epithelial Cells (None Seen) /HPF Urine Bacteria (None Seen) /HPF Urine Culture Reflexed (NO) Urine HCG, Qual (NEGATIVE) Influenza Type A Ag NEGATIVE (NEGATIVE) Influenza Type B Ag NEGATIVE (NEGATIVE) RSV (PCR) NEGATIVE (NEGATIVE) SARS-CoV-2 (PCR) NEGATIVE (NEGATIVE) 04/29/23 04/29/23 04/29/23 Range/Units 11:43 11:43 11:38 WBC 11.3 H (4.0-10.5) x10^3/uL RBC 4.87 (4.1-5.4) x10^6/uL Hgb 14.4 (12.0-16.0) g/dL Hct 43.4 (35-47) % MCV 89.1 (78-100) fL MCH 29.6 (26-32) pg MCHC 33.2 (32-36) g/dL RDW 12.4 (11.5-14.0) % Plt Count 242 (150-450) x10^3/uL MPV 9.9 (7.5-11.0) fL Gran % 64.3 (36.0-66.0) % Immature Gran % (Auto) 0.2 (0.00-0.4) % Nucleat RBC Rel Count 0.0 (0.00-0.1) % Eos # (Auto) 0.24 (0-0.5) x10^3/uL Immature Gran # (Auto) 0.02 (0.00-0.03) x10^3u/L Absolute Lymphs (auto) 3.12 (1.0-4.6) x10^3/uL Absolute Monos (auto) 0.59 (0.0-1.3) x10^3/uL Absolute Nucleated RBC 0.00 (0.00-0.01) x10^3u/L Lymphocytes % 27.6 (24.0-44.0) % Monocytes % 5.2 (0.0-12.0) % Eosinophils % 2.1 (0.00-5.0) % Basophils % 0.6 (0.0-0.4) % Absolute Granulocytes 7.28 H (1.4-6.9) x10^3/uL Basophils # 0.07 (0-0.4) x10^3/uL Sodium (137-145) mmol/L Potassium (3.5-5.1) mmol/L Chloride (98-107) mmol/L Carbon Dioxide (22-30) mmol/L Anion Gap (5-15) MEQ/L BUN (7-17) mg/dL Creatinine (0.52-1.04) mg/dL Estimated GFR ML/MIN Glucose (74-106) mg/dL Lactic Acid (0.4-2.0) Calcium (8.4-10.2) mg/dL Total Bilirubin (0.2-1.3) mg/dL AST (14-36) U/L ALT (0-35) U/L Alkaline Phosphatase (38-126) U/L Serum Total Protein (6.3-8.2) g/dL Albumin (3.5-5.0) g/dL Lipase (23-300) U/L Urine Color Yellow (Yellow) Urine Appearance Clear (Clear) Urine pH 8.0 (4.6-8.0) Ur Specific [place] 1.015 (1.005-1.030) Urine Protein Negative (Negative) Urine Glucose (UA) Negative (Negative) mg/dL Urine Ketones Negative (Negative) Urine Blood Negative (Negative) Urine Nitrite Negative (Negative) Urine Bilirubin Negative (Negative) Urine Urobilinogen 0.2 (0.2) mg/dL Ur Leukocyte Esterase Negative (Negative) U Hyaline Cast (Auto) NONE SEEN (0-2) /LPF Urine Microscopic RBC 0-2 (0-5) /HPF Urine Microscopic WBC 3-5 (0-5) /HPF Ur Epithelial Cells Few (None Seen) /HPF Urine Bacteria Rare A (None Seen) /HPF Urine Culture Reflexed NO (NO) Urine HCG, Qual NEGATIVE (NEGATIVE) Influenza Type A Ag (NEGATIVE) Influenza Type B Ag (NEGATIVE) RSV (PCR) (NEGATIVE) SARS-CoV-2 (PCR) (NEGATIVE) Procedures: [id number] RAD/OBSTR/ACUTE ABDOMEN SERIES Indication: Vomiting. Diarrhea. Comparison: Chest exam March 18, 2021 2 view abdomen nonacute and nonobstructed with cholecystectomy. Solid organs unremarkable. Osseous structures intact with minimal double curvature scoliosis. Single frontal chest again demonstrates normal heart and lungs with incidental right apical calcified granuloma. Bony thorax intact. Impression: Nonacute nonobstructed abdomen. Continued normal 1 view chest. Reported by: JACKIE SCANLON DO Signed by: JACKIE SCANLON DO Signed date/time: 04/29/23 1221 Copies to: RAFI HECTOR - Progress Progress Note: This patient with nausea and vomiting which is likely secondary to benign infectious cause Or adverse drug reaction. Considered but low risk for SBO (normal BM, passing flatus, no abdominal surgeries), no signs of DKA in labs. Patient BMP with normal electrolytes and no sign of dehydration causing prerenal VAL. Low suspicion for gastric or esophageal dysmotility as cause_. . Based on history, exam, and work up low suspicion for pancreatitis, appendicitis, biliary pathology, or other emergent problem. Patient given zofran and tolerated PO here. Patient to be discharged with zofran and to follow up with PMD The patient's blood work is unremarkable. The patient was not . There was no ketones in the urine. Normal lactate. Unremarkable electrolytes. Only mild abnormalities. The patient did better with IV fluids and Zofran. At this point the patient is stable for release. No signs of an acute GI or surgical or metabolic or medical emergency. The patient is well appearing, and nontoxic. After careful history, physical exam, vital signs, and review of any laboratory or diagnostic data as ordered, I made the decision the patient does not appear to have a life threatening ill ness and can be carefully discharged with close follow-up. I do not feel any further imaging or laboratory data is needed at this time. I have considered both emergent and urgent disease pathology. I have given written and verbal discharge instructions, as well as the current differential diagnosis. Patient advised of the importance of following up with their PCP concerning findings, treatment, and status post treatment. All laboratory, radiology, respiratory, and assessment findings were reviewed in detail with the patient. Patient was educated on all prescriptions and proper usage as well as the importance of following up with primary care in a timely fashion for ongoing health and we llness management. The nursing staff has reiterated the disposition plan as well The patient was given a dose of droperidol. This seemed to help greatly. The patient will be discharged with medications. The patient at this point shows no signs of severe dehydration. The patient is doing better after IV fluids. This could be an adverse drug reaction. 04/29/23 13:39 - Departure Departure Disposition: Home Clinical Impression: Nausea & vomiting Condition: Stable Critical Care Time: No Referrals: RAFI HECTOR NP [Primary Care Provider] - Follow up/PCP as directed Instructions: Nausea and Vomiting, Adult (DC), Nausea and Vomiting, Adult Additional Instructions: Thank you for choosing our Emergency Department for your healthcare! Please take your medicines prescribed as directed and be assured that you follow up with the physician provided or your PCP in the next 1-2 days to assure you are improving. All medical problems cannot be reasonably diagnosed in your ED visit today. Return for any changes or concerns, including if your condition does not improve or you are unable to obtain follow-up. Some final results, including radiology reports, do not return the same day, but are available on the patient portal or can be obtained through your PCP. Prescriptions: Diphenhydramine HCl 25 mg [Benadryl 25 mg Capsule] 25 mg PO Q4H PRN PRN #20 cap PRN Reason: Vomiting Ondansetron ODT 4 MG [Zofran Odt 4 mg] 4 mg PO Q6H PRN PRN #10 tablet PRN Reason: Vomiting
[2023-04-29 13:28] VITALS: BP 111/74; PULSE 67; RESP 15
== END 2023-04-29 13:47 | disposition home or self-care (01) ==
LOC: ED 11:20
DX: R11.2 Nausea with vomiting, unspecified (principal); R42 Dizziness and giddiness; R53.81 Other malaise; M79.10 Myalgia, unspecified site; Z79.891 Long term (current) use of opiate analgesic; Z79.899 Other long term (current) drug therapy; Z72.0 Tobacco use
CPT/HCPCS: 0241U; 36000; 36415; 74022; 80053; 81001; 81025; 83605; 83690; 85025; 96360; 96374; 96375; 99284; J2405

== ENCOUNTER 2023-12-09 05:21 | Day surgery (SDC) | payer OTHER ==
[2023-12-09] MEDS: CEFAZOLIN 2 GM/100 ML NaCl 2 GM/100 ML IVPB IV SCH (06:17)
[2023-12-09] MEDS: Lactated Ringers 1,000 ML IV SCH (06:17)
[2023-12-09 06:19] LABS: HCG URINE TEST NEGATIVE (NEGATIVE)
[2023-12-09] MEDS ORDERED: MARCAINE 0.5%-EPI 1:200,000 VL IJ ONE (06:27)
[2023-12-09 06:32] VITALS: RESP 16
[2023-12-09] MEDS ORDERED: Versed 2 MG/2 ML Injection ONE (07:50)
[2023-12-09] MEDS ORDERED: ROCURONIUM BROMIDE IV ONE (07:50)
[2023-12-09] MEDS ORDERED: Xylocaine-Mpf 2% 5 Ml Vial ONE (07:50)
[2023-12-09] MEDS ORDERED: SUBLIMAZE 100 MCG/2 ML ONE ×2 (07:50→08:56)
[2023-12-09] MEDS ORDERED: DIPRIVAN 200 MG/20 ML IV ONE (07:50)
[2023-12-09] MEDS ORDERED: Decadron 4 MG INJ ONE (08:09)
[2023-12-09] MEDS ORDERED: Zofran 4 MG/2 ML VIAL ONE ×2 (08:15→09:31)
[2023-12-09] MEDS ORDERED: TORAdol 30 mg Injection ONE (08:36)
[2023-12-09] MEDS ORDERED: BRIDION 200MG/2ML IV ONE (08:39)
[2023-12-09] MEDS: PROVENTIL 2.5 MG/3 ML NEB IH ONE (08:40)
[2023-12-09] MEDS ORDERED: Hydromorphone 1 mg/ml Injection ONE (09:24)
[2023-12-09] MEDS ORDERED: Lactated Ringers 1,000 ML IV ONE (09:27)
[2023-12-09 10:01] VITALS: TEMP 97.7
[2023-12-09 10:10] VITALS: BP 122/75
[2023-12-09] MEDS: Tums EX 750 MG PO ONE (10:15)
[2023-12-10 06:19] VITALS: PULSE 96; O2SAT 95
--- NOTE | 2023-12-11 19:49 | OP ---
SURGERY DATE/TIME: 12/09/2023 7026 - [id number] PREOPERATIVE DIAGNOSIS: Torn left medial meniscus. POSTOPERATIVE DIAGNOSIS: Small tear, left lateral meniscus; and large medial plica. PROCEDURE: Arthroscopy of the left knee with partial lateral meniscectomy and excision medial plica. SURGEON: Geovany Bernard II, DO ANESTHESIA: General. DESCRIPTION OF PROCEDURE AND FINDINGS: The patient was identified and informed consent was obtained. The patient was then taken to the operative suite where she was placed in the supine position on the operating table where the general anesthetic was administered. Once an appropriate level of anesthesia had been obtained, tourniquet was placed behind the left thigh. The left lower extremity was placed into the knee gaston and prepped and draped in the usual sterile fashion. A standard time-out was then taken. Following this, the leg was exsanguinated and the tourniquet was elevated to 350 mmHg. A standard superomedial portal was created with an 11 blade and the trocar and cannula placed in the joint. The joint was distended with the arthroscopic pump. Inferolateral portal was also created with a #11 blade, and the arthroscope was then placed through a cannula. An 18-gauge spinal needle then identified the level for the inferomedial portal which was also created with an 11 blade. The knee was inspected in a systematic fashion beginning at the suprapatellar pouch where there were no loose bodies or synovial hypertrophy. Patella seated nicely within the femoral groove at about 30 degrees of flexion. Gutters were inspected. There were no loose bodies, but there was a very large thickened medial plica which was resected with the shaver. At this point, the scope was then placed in the medial compartment where the medial meniscus was probed throughout its entirety on both the upper and undersurfaces, and no evidence of a tear was noted as had been suggested on the MRI. Femoral condyle and tibial plateau had no chondromalacia. The intercondylar notch region was inspected and the anterior cruciate ligament was noted to be intact. The scope was placed into the lateral compartment where the femoral condyle and tibial plateau again showed no chondromalacia. There was a small fraying tear along the inner edge of the middle horn of the lateral meniscus. This was resected with the handheld biting instruments. At this point, the knee was then copiously irrigated and reinspected and no further pathology identified. The instrumentation was removed, and the wounds were closed with interrupted 4-0 nylon suture. The knee was infiltrated with 30 mL of 0.25% Marcaine with epinephrine. Adaptics, 4 x 4's, and a standard postoperative arthroscopy dressing applied. The patient was transferred to the cart and taken to the recovery room in satisfactory condition having tolerated the procedure well.
== END 2023-12-09 10:15 | disposition home or self-care (01) ==
LOC: SDC 05:21
PROVIDERS: ATTEND Orthopaedic Surgery
DX: S83.242A Other tear of medial meniscus, current injury, left knee, initial encounter (principal)
CPT/HCPCS: 29875; 29881; 81025; 94640; J0690; J1100; J1170; J1885; J2250; J2405; J2704; J3010; J7609; A9270-GY

== ENCOUNTER 2023-12-11 08:30 | Emergency (ER) | payer OTHER ==
[2023-12-11 08:44] VITALS: PULSE 51; TEMP 97.9; O2SAT 98
--- NOTE | 2023-12-11 09:08 | ERPHSYRPT ---
- History of Present Illness Time Seen by Provider: 12/11/23 08:50 Source: patient Exam Limitations: no limitations Patient Subjective Stated Complaint: pt had knee surgery 2 days ago to the left knee due to a tear and they removed some cartiladge, pt began having significant pain around midnight Triage Nursing Assessment: Pt brought to the ER by her friend, [facility] wnl, rates pain as 10/10, left knee pain and swelling with some redness, pulses normal, skin n/w/d, unable to go to the restroom due to the pain Physician History: Pt c/o pain in her left knee; had surgery [address] Bernard. Pt denies chest pain, chills, shortness of air, numbness, fever. Allergies/Adverse Reactions: chlordiazepoxide HCl [From Librium] Allergy (Verified 12/11/23 08:44) levetiracetam [From Keppra] Allergy (Verified 12/11/23 08:44) Home Medications: Venlafaxine HCl ER 75 mg [Effexor XR 75 MG] 150 mg PO DAILY 12/30/22 [History] Olanzapine 5 mg [zyPREXA 5MG TABLET] 5 mg PO HS 12/09/23 [History] Hx Tetanus, Diphtheria Vaccination/Date Given: No ("had one not that long ago") Hx Influenza Vaccination/Date Given: No Hx Pneumococcal Vaccination/Date Given: No Travel Risk - International Travel Have you traveled outside of the country in past 3 weeks: No - Emerging Infectious Disease Are you exhibiting symptoms associated with any current EIDs: No - Review of Systems Constitutional: No Fever Respiratory: No Dyspnea Cardiac: No Chest Pain Musculoskeletal: Joint Pain (left knee) Neurological: No Sensory Changes - Past Medical History Pertinent Past Medical History: Yes Neurological History: No Pertinent History ENT History: No Pertinent History Cardiac History: No Pertinent History Respiratory History: No Pertinent History Endocrine Medical History: No Pertinent History Musculoskeletal History: No Pertinent History GI Medical History: No Pertinent History History: No Pertinent History Psycho-Social History: Anxiety, Depression Female Reproductive Disorders: No Pertinent History Other Medical History: HAS INTERMITTENT VERTIGO OF UNKNOWN ETIOLOGY. SHE DOES HAVE AN ENLARGEMENT IN HER PITUTUARY GLAND; - Past Surgical History Past Surgical History: Yes Neuro Surgical History: No Pertinent History Cardiac: No Pertinent History Respiratory: No Pertinent History Gastrointestinal: Cholecystectomy Genitourinary: No Pertinent History Musculoskeletal: Other Female Surgical History: Section Other Surgical History: states she had left hand surgery, January 2021 Significant Family History: no pertinent family hx - Female History Hx Last Menstrual Period: about 3 weeks ago Hx Now: No - Social History Smoking Status: Current every day smoker How long have you smoked: 14 years Exposure to second hand smoke: Yes Alcohol Use: Socially Drug Use: none Patient Lives Alone: Yes - Social Determinants of Health Will the patient participate in the screening: Yes Do you worry about a steady place to live?: No Do you have any problems with any of the following?: No known problems In the past 12 months,have you had to go without utilities?: No Transportation Issues: No Has anyone in your support network made you feel unsafe?: No Have you or anyone in your house had to go without enough: No - Nursing Vital Signs Nursing Vital Signs: Initial Vital Signs Blood Pressure 121/75 12/11/23 08:30 O2 Sat by Pulse Oximetry 98 12/11/23 08:30 Pain Scale Pain Intensity 10 - Physical Exam General Appearance: alert Eyes, Ears, Nose, Throat Exam: TMs normal, pharynx normal, moist mucous membranes Neck Exam: normal inspection Cardiovascular/Respiratory Exam: normal breath sounds, heart sounds normal Gastrointestinal/Abdominal Exam: soft (B.S. normal) Hips Exam: left: normal range of motion Knees Exam: left knee: swelling (mild edema; 3 healing incisions, minimal erythema of lowest incision without exudate, rom ~ 40 degrees for flexion witgh almost full extension.) Ankle Exam: left ankle: normal range of motion Foot Exam: left foot: normal range of motion Neuro/Tendon Exam: No sensory deficit Mental Status Exam: alert, cooperative Skin Exam: No cyanosis SpO2 Interpretation: normal SpO2: 98 O2 Delivery: Room Air - Course Nursing assessment & vital signs reviewed: Yes - Progress Progress: unchanged Discussed with : Other (Spoke with & discussed pt with Dr. Bernard(Orthopedic surgeon)([id number]) who stated pt may go home and take ibuprofen and tylenol and move left knee through more rom. Pt is to call him at the number he gave her if she has any other concerns.) - Departure Departure Disposition: Home Clinical Impression: Left knee pain, S/P Left knee surgery day 2 Condition: Stable Critical Care Time: No Referrals: RAFI HECTOR NP [Primary Care Provider] - Follow up/PCP as directed Instructions: Knee Pain (DC) Additional Instructions: Follow up with Dr. Bernard and call him at the number he gave you with any concerns. Put left knee through more range of motion. Elevate left knee above heart level. Forms: Work/School Release Form
[2023-12-11] MEDS: TORAdol 30 mg Injection IM ONE (09:19)
[2023-12-11] MEDS ORDERED: TORAdol 30 mg Injection ONE (09:19)
[2023-12-11 09:39] VITALS: BP 120/67
== END 2023-12-11 09:47 | disposition home or self-care (01) ==
LOC: ED 08:30
DX: G89.18 Other acute postprocedural pain (principal); M25.562 Pain in left knee; Z79.899 Other long term (current) drug therapy; Z72.0 Tobacco use
CPT/HCPCS: 96372; 99283; J1885